=== PATIENT | female | born 1950 | race Caucasian/White ===

== ENCOUNTER 2022-09-06 17:04 | Outpatient (CLI) | payer SELFPAY | END 2022-09-06 17:05 | disposition EMS.NT | LOC: EMS 17:04 | DX: S01.21XA Laceration without foreign body of nose, initial encounter (principal); W07.XXXA Fall from chair, initial encounter; Y92.048 Other place in boarding-house as the place of occurrence of the external cause ==

== ENCOUNTER 2024-01-20 05:12 | Outpatient (CLI) | payer SELFPAY | END 2024-01-20 23:59 | disposition EMS.NT | LOC: EMS 05:12 | DX: Z03.89 Encounter for observation for other suspected diseases and conditions ruled out (principal) ==

== ENCOUNTER 2025-05-09 20:13 | Inpatient (IN) ==
--- NOTE | 2025-05-09 20:39 | ED Physician Documentation ---
History of Present Illness Stated complaint Stated Complaint: FOUND DOWN Chief complaint Chief Complaint: General History obtained from History obtained from: Patient Additonal information Additional information: 74yF with pmh DM p/w covid diagnosed on Tuesday with subsequent weakness, inability to care for self. EMS reported she was hypotensive in the field. patient also reports she had episode Tuesday of sliding from chair and landing on ground. called ems due to severe weakness and was incontinent of urine, unable to make it to restroom. also has been unable to keep down food, fluids or meds X 4 days Meds/Allgy Home Medications Ambulatory Orders Medication Instructions Recorded Confirmed Home Medications Unobtainable 05/04/25 05/04/25 Allergies Allergies Allergy/AdvReac Type Severity Reaction Status Date / Time Penicillins AdvReac Severe Hives Verified 05/09/25 20:16 Sulfa (Sulfonamide AdvReac Severe Hives Verified 05/09/25 20:16 Antibiotics) PFSH Active Problems All Active Problems (Updated 05/09/25 @ 22:13 by Lina Whitman MD) Rhabdomyolysis (Acute) Sinusitis (Chronic) COVID (Acute) Exposure to COVID-19 virus (Acute) Hyperlipemia (Chronic) Hypertension (Chronic) Diabetes (Chronic) Medical History Medical History (Updated 05/09/25 @ 22:13 by Lina Whitman MD) Arthritis Social History Social History Smoking Status: Never smoker Do you feel safe in your home environment?: Yes History of physical, verbal, emotional, or financial abuse?: No POLST Patient has POLST: No Exam Exam Vital Signs: Vital Signs x48h Temp Pulse Resp BP Pulse Ox 05/09/25 21:12 81 160/76 H 96 05/09/25 20:16 36.5 C 88 20 150/94 H 94 Constitutional elderly appearing, large body habitus, deconditioned HENMT normocephalic and oropharynx normal BL gross purulent discharge from nares Eyes PERRL and EOMs intact bilaterally Chest inspection of chest normal Respiratory breath sounds equal bilaterally, normal respiratory effort and clear to auscultation bilaterally Cardiovascular normal heart rate noted and regular rhythm noted Gastrointestinal abdomen normal to inspection, abdomen soft to palpation and nontender to palpation Back/Pelvis sacral decubitus ulcer Neurology GCS 15 Psychiatry oriented x3 Results Vitals Vitals: Vital Signs - 24 hr 05/09/25 20:16 05/09/25 21:12 05/09/25 21:40 Temperature 36.5 C Temperature Source Oral Pulse Rate 88 81 Respiratory Rate 20 Blood Pressure 150/94 H 160/76 H O2 Saturation 94 96 O2 Source Room air Pain Intensity 5 5 05/09/25 21:42 Temperature Temperature Source Pulse Rate Respiratory Rate Blood Pressure O2 Saturation O2 Source Pain Intensity 5 Oxygen O2 Source Room air Labs Labs: Laboratory Tests 05/09/25 05/09/25 21:05 21:09 WBC 12.6 H RBC 4.88 Hgb 14.1 Hct 43.1 MCV 88.3 MCH 28.9 MCHC 32.7 RDW 13.9 Plt Count 288 MPV 10.6 Neut # (Auto) 10.2 H Lymph # (Auto) 1.2 L [place] # (Auto) 1.1 H Eos # (Auto) 0.0 Baso # (Auto) 0.0 Absolute Nucleated RBC 0.00 Nucleated RBC % 0.0 VBG pH 7.372 VBG pCO2 43.1 VBG pO2 69.1 H VBG HCO3 25.3 VBG Total CO2 26.6 VBG O2 Saturation 89.0 H VBG Base Excess -0.2 Sodium 138 Potassium 3.5 Chloride 99 L Carbon Dioxide 26 Anion Gap 13.0 BUN 27 H Creatinine 0.6 Estimated GFR (MDRD) 97 Glucose 153 H Lactic Acid 2.3 H Calcium 9.4 Total Bilirubin 0.6 AST 120 H ALT 43 Alkaline Phosphatase 43 Total Creatine Kinase 2679 H* Total Protein 7.2 Albumin 3.9 Globulin 3.3 Albumin/Globulin Ratio 1.2 Serum Ketones SMALL H PD Medical Decision Making ED course ED course: 74yF presents with inability to care for self, incontinence, purulent discharge from nose, and recent covid dx. plan to undertake full workup and reevaluate. AOX4. cxr negative. She does have leukocytosis and lactic acidemia concerning for sepsis. Fluids and antibiotics provided given alma sinusitis. Plan to admit for sepsis in setting of severe deconditioning. Discharge Plan Discharge Patient Disposition: [facility] DC/Xfer Condition: Fair Clinical Impression: COVID, Sinusitis, Rhabdomyolysis Prescriptions: No Action Home Medications Unobtainable Print Language: [place]
--- OUTSIDE RECORDS SUMMARY | 2025-05-09 20:44 | EXTERNAL MEDICAL SUMMARY RPT | Continuity of Care Document ---
Author Organization [facility] Address [address] [facility] [address] [place] [address] Phone Problems date description facility 2025-05-06 05:37 [facility] 2 [facility]-06 05:37 Hyperlipidemia, unspecified [facility] 2025-05-06 05:37 Essential (primary) [facility]ensio n [facility] 2025-05-06 05:37 Contact with and (sus[facility]) [facility] Social History date description facility
[2025-05-09] MEDS: SODIUM CHLORIDE 0.9% 2,000 ML IV ONE (21:05)
[2025-05-09 21:17] LABS: HCT - HEMATOCRIT 43.1 % (37.0-47.0); HGB - HEMOGLOBIN 14.1 g/dL (12.0-16.0); MEAN PLATELET VOLUME 10.6 fL (7.9-10.8); NRBC ABSOLUTE COUNT (AUTO) 0.00 x10^3/uL; NUCLEATED RED BLOOD CELLS AUTO 0.0 /100WBC; PLT - PLATELET COUNT 288 10^3/uL (130-450); RED CELL DISTRIBUTION WIDTH 13.9 % (12.0-15.0)
--- NOTE | 2025-05-09 21:18 | XRAY Report ---
PROCEDURE: XR Chest 1V INDICATIONS: weak TECHNIQUE: One view of the chest was acquired. COMPARISON: None. FINDINGS: Surgical changes and devices: None. Lungs and pleura: No pleural effusions or pneumothorax. No consolidation. Mediastinum: Mediastinal contours appear normal. Heart size is normal. Bones and chest wall: No suspicious bony lesions. Overlying soft tissues appear unremarkable. IMPRESSION: No acute cardiopulmonary process. Reviewed by: Trey Sarah MD on 05/09/2025 9:15 PM PDT Approved by: Trey Sarah MD on 05/09/2025 9:15 PM PDT Station ID: [id number]
[2025-05-09 21:27] LABS: VBG BASE EXCESS -0.2 mmol/L (-2 - +2); VBG PCO2 43.1 mmHg (41-51); VBG PO2 69.1 mmHg (25-47); VBG TOTAL CO2 26.6 mmol/L (24-29)
[2025-05-09 21:35] LABS: ALT ALANINE AMINOTRANSFERASE 43 IU/L (10-60); AST ASPARTATE AMINOTRANSFERASE 120 IU/L (10-42); BUN - BLOOD UREA NITROGEN 27 mg/dL (6-20); CARBON DIOXIDE - CO2 26 mmol/L (21-32); CREATININE 0.6 mg/dL (0.6-1.3); GFR - MDRD 97 (>89)
[2025-05-09] MEDS: ACETAMINOPHEN 325 MG TABLET PO STA (21:40)
[2025-05-09] MEDS: IBUPROFEN 600 MG TABLET PO STA (21:42)
[2025-05-09 21:43] LABS: KETONES, SERUM (ACETEST) SMALL (NEGATIVE)
[2025-05-09 22:00] LABS: VBG PH 7.372 (7.31-7.41)
[2025-05-09] MEDS: cefTRIAXone 1 GM in SODIUM CHLORIDE 0.9% MINIBAG 100 ML IV STA (22:20)
[2025-05-09] MEDS ORDERED: cefTRIAXone 1 GM VIAL ONE (22:20)
[2025-05-09 22:28] LABS: CORONAVIRUS 229E-RESP PCR NOT DETECTED; CORONAVIRUS HKU1-RESP PCR NOT DETECTED; CORONAVIRUS NL63-RESP PCR NOT DETECTED; CORONAVIRUS OC43-RESP PCR NOT DETECTED
[2025-05-09 22:29] LABS: HUMAN METAPNEUMOVIRUS NOT DETECTED; INFLUENZA A- RESP PCR PANEL NOT DETECTED; RHINOVIRUS/ENTEROVIRUS NOT DETECTED; SARS-CoV-2 -RESP PCR PANEL DETECTED
[2025-05-09 22:30] LABS: B. PARAPERTUSSIS- RESP PCR PAN NOT DETECTED; B. PERTUSSIS- RESP PCR PANEL NOT DETECTED; C. PNEUMONIAE- RESP PCR PANEL NOT DETECTED; INFLUENZA B - RESP PCR PANEL NOT DETECTED; M. PNEUMONIAE- RESP PCR PANEL NOT DETECTED; PARAINFLUENZA VIRUS 1 NOT DETECTED; PARAINFLUENZA VIRUS 2 NOT DETECTED; PARAINFLUENZA VIRUS 4 NOT DETECTED; RSV- RESP PCR PANEL NOT DETECTED
--- NOTE | 2025-05-09 22:44 | HISTORY & PHYSICAL EXAMINATION ---
Chief Complaint Chief Complaint Chief Complaint: Weaknes, Fall History of Present Illness History Obtained From History obtained from: patient Exam Limitations: Telemedicine encounter History of Present Illness HPI Comment/Other: Patient is 74 y/o Diabetic F with prior hx of HTN and HLD not on insulin treatment, prior history of taking COVID-19 vaccines, lives alone and uses cane or walker to ambulate due to arthritis, presented today following fall and unable to walk due to diffuse generalized weakness, patient was diagnosed COVID - 19 five days, ago from home covid - 19 testing . EMS found patient on floor and patient admits svere weakness since last 3 days, as per my discussion with ER MD patient was found on floor with severe lethargy and bowel movement on floor, Patinet presented to hospital for further evaluation of symptoms. Describes diffuse weakness, runny nose, dry cough but no fever and not passing out. denies diarrhea, hedaceh. Meds/Allgy Home Medications Ambulatory Orders Medication Instructions Recorded Confirmed Home Medications Unobtainable 05/04/25 05/04/25 Allergies Allergies Allergy/AdvReac Type Severity Reaction Status Date / Time Penicillins AdvReac Severe Hives Verified 05/09/25 20:16 Sulfa (Sulfonamide AdvReac Severe Hives Verified 05/09/25 20:16 Antibiotics) PFSH Active Problems All Active Problems (Updated 05/09/25 @ 22:43 by ) Rhabdomyolysis (Acute) Sinusitis (Chronic) COVID (Acute) Exposure to COVID-19 virus (Acute) Hyperlipemia (Chronic) Hypertension (Chronic) Diabetes (Chronic) Medical History Medical History (Updated 05/09/25 @ 22:43 by ) Arthritis Social History Social History Smoking Status: Never smoker Do you feel safe in your home environment?: Yes History of physical, verbal, emotional, or financial abuse?: No POLST Patient has POLST: No Review of Systems Constitutional Reports: Fatigue, Malaise and Weakness; Denies: Chills, Diaphoresis, Night sweats or Poor appetite Ears, nose, mouth, and throat Reports: Ear pain, Nasal congestion and Post nasal drip; Denies: Hearing loss, Tinnitus, Nose bleeds or Vertigo Cardiovascular Denies: chest pain, palpitations, edema or shortness of breath with exertion Respiratory Reports: Cough and Sputum production; Denies: Shortness of breath, Change in phlegm color or Wheezing Neurological Reports: General weakness; Denies: Focal weakness, Weakness in extremities or Vertigo Endocrine Reports: Fatigue Allergic/Immunologic Denies: Wheezing Exam Exam Vital Signs: Vital Signs x48h Temp Pulse Resp BP Pulse Ox 05/09/25 21:12 81 160/76 H 96 05/09/25 21:11 81 16 160/76 H 96 05/09/25 20:16 36.5 C 88 20 150/94 H 94 Conclusion/Plan Problem List (1) Rhabdomyolysis: (2) Sinusitis: (3) COVID: (4) Hypertension: Qualifiers: Hypertension type: unspecified Qualified Code(s): I10 - Essential (primary) hypertension (5) Hyperlipemia: Qualifiers: Hyperlipidemia type: unspecified Qualified Code(s): E78.5 - Hyperlipidemia, unspecified (6) Diabetes: Qualifiers: Diabetes mellitus type: type 2 Diabetes mellitus residential insulin use: without medical terminologist use Diabetes mellitus complication status: without complication Qualified Code(s): E11.9 - Type 2 diabetes mellitus without complications Plan - Profound weakness following COVID 19, evident by patient's own symptoms of gradual decline - Symptoms of sinusitis and URI - Severe weakness - Start IV Rocephin, no role of Remdesivir as onset is 5 or more days - f/u blood culture - obtain PT OT eval - Continue IVF - Patient has rhabdomysis, obtain CPK in am, ok to continue diabetic diet - Continue supportive care - Continue Sliding scale - DVT prophyalxis Lab Results 05/09/25 21:05 05/09/25 21:05
[2025-05-09] MEDS: SODIUM CHLORIDE 0.9% 500 ML IV ONE (22:53)
[2025-05-10] MEDS ORDERED: oxyCODONE 5 MG TABLET PO PRN (00:31)
[2025-05-10] MEDS ORDERED: ZOLPIDEM 5 MG TABLET PO PRN (00:31)
[2025-05-10] MEDS ORDERED: ONDANSETRON ODT 4 MG TABLET TL PRN (00:31)
[2025-05-10] MEDS ORDERED: SODIUM CHLORIDE FLUSH 0.9% 10 ML SYRINGE IVP PRN (00:31)
[2025-05-10] MEDS ORDERED: ACETAMINOPHEN 325 MG TABLET PO PRN (00:31)
[2025-05-10] MEDS: LACTATED RINGERS 1,000 ML IV SCH (01:43)
[2025-05-10] MEDS: SODIUM CHLORIDE FLUSH 0.9% 10 ML SYRINGE IVP SCH (01:43)
[2025-05-10 05:56] LABS: HCT - HEMATOCRIT 33.5 % (37.0-47.0); HGB - HEMOGLOBIN 11.1 g/dL (12.0-16.0); MEAN PLATELET VOLUME 10.8 fL (7.9-10.8); NRBC ABSOLUTE COUNT (AUTO) 0.00 x10^3/uL; NUCLEATED RED BLOOD CELLS AUTO 0.0 /100WBC; PLT - PLATELET COUNT 225 10^3/uL (130-450); RED CELL DISTRIBUTION WIDTH 14.0 % (12.0-15.0)
[2025-05-10 06:10] LABS: GLUCOSE, URINE (UA) NEGATIVE (NEGATIVE); KETONES,URINE (UA) >=80 mg/dL (NEGATIVE); OCCULT BLOOD,URINE TRACE-LYSED (NEGATIVE); SQUAMOUS EPITHELIAL CELL,UR MOD Squamous (<= Few)
[2025-05-10 06:15] LABS: BUN - BLOOD UREA NITROGEN 26.0 mg/dL (6-20); CARBON DIOXIDE - CO2 25.0 mmol/L (21-32); CREATININE 0.6 mg/dL (0.6-1.3); CRP - C-REACTIVE PROTEIN 7.4 mg/dL (<0.5); GFR - MDRD 97.0 (>89)
[2025-05-10 06:20] LABS: CK- CREATINE KINASE 1850.0 IU/L (30-223)
[2025-05-10] MEDS: POTASSIUM CHLORIDE 20 MEQ TABLET PO ONE (08:45)
[2025-05-10] MEDS: INSULIN LISPRO 300 UNIT/3 ML PEN SUBQ SCH (08:46)
[2025-05-10] MEDS: HEPARIN 5,000 UNIT/ML VIAL SUBQ SCH (08:47)
--- NOTE | 2025-05-10 09:50 | PHARMACY PROGRESS NOTE ---
Best Possible Medication History Admit Date and Time: 05/09/25 2226 Home Medications Medication Instructions Recorded Confirmed Type lisinopril 40 mg tablet 40 mg PO DAILY 05/09/2505/01 History metformin 1,000 mg tablet 1,000 mg PO BID 05/09/2505/25 History simvastatin 40 mg tablet 40 mg PO QPM 05/09/25 History sitagliptin phosphate 25 mg tablet 25 mg PO DAILY 04/2505/10/25 History (Fariha) Processed by: Pharmacy Medications reviewed in ED?: No Medication History completed: Yes Patient Interview: Pt unable to participate Secondary Source(s): Pharmacy records and Insurance records [facility] Statement: As the person ultimately responsible for medication therapy, providers are able to order a medication from an existing home medication list in [facility] via the "Reconcile Routine" prior to Confirmation of that medication by business support. Such practice is discouraged except when the physician, in their clinical judgment, deems that a medical need exists for a medication without regard to previous use.
--- NOTE | 2025-05-10 10:18 | PROVIDER PROGRESS NOTE ---
Subjective Prog Note Date Prog Note Date: 05/10/25 Prog Note Time: 09:55 Subjective Pt reports feeling: Improved Subjective: Mercedes Rodriguez (Marni) is a pleasant 74-year-old female with PMH of T2DM, arthritis, HTN, and HL who presents with severe weakness, rhinorrhea, and cough secondary to cough resulting in fall found to be in rhabdomyolysis. Harriet begins her story on 05/03, when she visited her manager retail sales for a regular diabetes wellness evaluation, and was notified 05/04 that her provider had Covid for which she had been exposed. She presented to the walk-in clinic that day and requested a Covid test which returned negative, she was asymptomatic at the time. On 05/05 however she developed myalgias, productive cough, sore throat, and rhinorrhea progressing to profound generalized weakness which resulted in her sliding out from her chair onto the floor 05/06. Due to her weakness she was unable to get up from the floor, and remained there until the evening of 05/09 when she states someone in her apartment complex finally heard her calls for help and activated EMS. She did not hit her head, did not lose consciousness, although she slept intermittently. She was unable to have any PO intake during those 3 days on the floor, and had multiple episodes of incontinent bladder/bowel since she could not get to the bathroom. She is unsure if she had fevers but did not feel feverish or have chills. At baseline, she lives alone with her dog. She is fairly independent with ADLs but does have a helper that comes for a few hours a few days a week to assist with minor supervisor rough end. She uses a FWW to ambulate longer distances outside of her apartment, drives to the grocery store herself. Today, Harriet states she is constitutionally feeling much better, however continues to endorse serous nasal drainage and productive cough with thick, yellow sputum. She states she has baseline arthritis pains in her bilateral shoulders, lower back, and bilateral knees for which she normally takes 2 tablets Ibuprofen daily-- this was exacerbated over the past few days as she was unable to take her medications; she received some last night in the ED which significantly relieved her pain. She denies nausea, vomiting, fever, chills, abdominal pain. She denies urinary or GI symptoms. She denies dyspnea, chest pain, palpitations. Current Medications Current Medications Current Medications: Current Medications Generic Name Dose Route Start Last Admin Trade Name Freq PRN Reason Stop Dose Admin Acetaminophen 650 mg 05/10/25 00:31 Acetaminophen 325 Mg Tablet PO Q4HR PRN Pain 1 to 4, or Fever Hydrocodone Bitart/Acetaminophen 1 tab 05/10/25 00:31 Hydrocod/Acetam 5/325 Mg Tablet PO Q4HR PRN Pain 5 to 7 Heparin Sodium (Porcine) 5,000 unit 05/10/25 09:00 05/10/25 08:47 Heparin 5,000 Unit/Ml Vial SUBQ 5,000 unit BID BABEY Administration Lactated Ringer's 1,000 mls @ 150 mls/hr 05/10/25 00:31 05/10/25 08:44 Lr IV 150 mls/hr .Q6H40M ABBEY Administration Insulin Human Lispro 1 - 9 unit 05/10/25 08:00 05/10/25 08:46 Insulin Lispro 300 Unit/3 Ml Pen SUBQ 1 unit 0800,1200,1700,2100 ABBEY Administration Protocol Ondansetron HCl 4 mg 05/10/25 00:31 Ondansetron Odt 4 Mg Tablet TL Q6HR PRN Nausea / Vomiting Oxycodone HCl 10 mg 05/10/25 00:31 Oxycodone 5 Mg Tablet PO Q4HR PRN Pain 8 to 10 Sodium Chloride 10 ml 05/10/25 00:31 Sodium Chloride Flush 0.9% 10 Ml Syringe IVP PRN PRN NEEDED PER PROVIDER ORDERS Sodium Chloride 10 ml 05/10/25 01:00 05/10/25 08:49 Sodium Chloride Flush 0.9% 10 Ml Syringe IVP Not Given 0100,0900,1700 [facility] Zolpidem Tartrate 5 mg 05/10/25 00:31 Zolpidem 5 Mg Tablet PO QPM PRN Insomnia Objective Vital Signs/Intake & Output Reviewed Vital Signs: Yes Vital Signs: Vital Signs x48h Temp Pulse Resp BP Pulse Ox O2 Flow Rate 05/10/25 08:11 36.7 C 68 18 158/55 H 96 05/10/25 05:19 36.7 C 20 123/45 L 93 Intake & Output: Intake & Output 05/07/25 05/08/25 05/09/25 05/10/25 23:59 23:59 23:59 23:59 Intake Total 3600 / 3600 Balance 3600 / 3600 Weight (kg) 113.7 kg 113.7 kg Objective General Appearance: positive No acute distress and Alert Eyes Bilateral: positive Normal inspection, PERRL and Conjunctivae nml ENT: positive Other (Serous nasal drainage, yellow mucus from productive cough) Neck: positive Nml inspection, No JVD and Trachea midline Respiratory: positive No respiratory distress; negative Breath sounds nml (Upper airway congestion, diminished lung sounds in the bases) Cardiovascular: positive Regular rate & rhythm and Systolic murmur (Best heard at the pulmonic and mitral points) Peripheral Pulses: 1+: Posterior tibialis (R) and 1+: Posterior tibialis (L) and 2+: Radial (R), 2+: Radial (L), 2+: Dorsalis pedis (R) and 2+: Dorsalis pedis (L) Abdomen: positive Non-tender, Nml bowel sounds and No distention Back: positive Nml inspection Skin: positive Warm, Dry and Other (S2 sacral pressure ulcer, present on admission); negative Color nml (Facial flushing to inner cheeks, <1cm dry scabs to right mari) Extremities: positive Full ROM and Nml appearance; negative No pedal edema (1+ ankle edema) Neurologic/Psychiatric: positive Oriented x3, Sensation nml, Mood/affect nml and Weakness (BUE motor intact, BLE motor strength 4/5); negative Motor nml (BUE motor intact, BLE motor strength 4/5) Lab Results 05/10/25 05:26 05/10/25 05:26 Other Labs: Lab Results x24hrs 05/10/25 05/10/25 05/10/25 Range/Units 07:53 05:26 05:20 WBC 7.5 (4.8-10.8) x10^3/uL RBC 3.83 L (4.20-5.40) 10^6/uL Hgb 11.1 L (12.0-16.0) g/dL Hct 33.5 L (37.0-47.0) % MCV 87.5 (81.0-99.0) fL MCH 29.0 (27.0-31.0) pg MCHC 33.1 (32.0-36.0) g/dL RDW 14.0 (12.0-15.0) % Plt Count 225 (130-450) 10^3/uL MPV 10.8 (7.9-10.8) fL Neut # (Auto) 5.2 (1.5-6.6) 10^3/uL Lymph # (Auto) 1.5 (1.5-3.5) 10^3/uL Deuel # (Auto) 0.7 (0.0-1.0) 10^3/uL Eos # (Auto) 0.1 (0.0-0.7) 10^3/uL Baso # (Auto) 0.0 (0.0-0.1) 10^3/uL Absolute Nucleated RBC 0.00 x10^3/uL Nucleated RBC % 0.0 /100WBC VBG pH (7.31-7.41) VBG pCO2 (41-51) mmHg VBG pO2 (25-47) mmHg VBG HCO3 (23-28) mmol/L VBG Total CO2 (24-29) mmol/L VBG O2 Saturation (60-80) % VBG Base Excess (-2 - +2) mmol/L Sodium 138 (135-145) mmol/L Potassium 3.1 L (3.5-4.5) mmol/L Chloride 105 (101-111) mmol/L Carbon Dioxide 25 (21-32) mmol/L Anion Gap 8.0 (6-13) BUN 26 H (6-20) mg/dL Creatinine 0.6 (0.6-1.3) mg/dL Estimated GFR (MDRD) 97 (>89) Glucose 168 H (74-104) mg/dL POC Whole Bld Glucose 148 (70-100) mg/dL Lactic Acid (0.5-2.2) mmol/L Calcium 8.3 L (8.5-10.3) mg/dL Total Bilirubin (0.2-1.0) mg/dL AST (10-42) IU/L ALT (10-60) IU/L Alkaline Phosphatase (42-121) IU/L Total Creatine Kinase 1850 H* (30-223) IU/L C-Reactive Protein 7.4 H (<0.5) mg/dL Total Protein (6.4-8.9) g/dL Albumin (3.2-5.5) g/dL Globulin (2.1-4.2) g/dL Albumin/Globulin Ratio (1.0-2.2) Procalcitonin Immunoas 0.15 (<0.5) ng/mL Urine Color YELLOW Urine Clarity HAZY (CLEAR) Urine pH 6.0 (5.0-7.5) PH Ur Specific Briscoe 1.020 (1.002-1.030) Urine Protein 30 H (NEGATIVE) mg/dL Urine Glucose (UA) NEGATIVE (NEGATIVE) mg/dL Urine Ketones >=80 H (NEGATIVE) mg/dL Urine Occult Blood TRACE-LYSED (NEGATIVE) Urine Nitrite POSITIVE H (NEGATIVE) Urine Bilirubin NEGATIVE (NEGATIVE) Urine Urobilinogen 0.2 (NORMAL) (NORMAL) E.U./dL Ur Leukocyte Esterase TRACE H (NEGATIVE) Urine RBC 0-5 (0-5) /HPF Urine WBC 0-3 (0-5) /HPF Ur Squamous Epith Cells MOD Squamous H (<= Few) Urine Bacteria Moderate H (None Seen) /HPF Urine Culture Comments NOT INDICATED Nasal Adenovirus (PCR) Nasal B. parapertussis DNA (PCR) Nasal Coronavir 229E PCR Nasal Coronavir HKU1 PCR Nasal Coronavir NL63 PCR Nasal Coronavir OC43 PCR Nasal Enterovir/Rhinovir PCR Nasal Influenza B PCR Nasal Influenza A PCR Nasal Parainfluen 1 PCR Nasal Parainfluen 2 PCR Nasal Parainfluen 3 PCR Nasal Parainfluen 4 PCR Nasal RSV (PCR) Nasal B.pertussis DNA PCR Nasal C.pneumoniae (PCR) Johan Human Metapneumo PCR Nasal M.pneumoniae (PCR) Nasal SARS-CoV-2 (PCR) Serum Ketones (NEGATIVE) 05/10/25 05/09/25 05/09/25 Range/Units 00:57 21:11 21:09 WBC (4.8-10.8) x10^3/uL RBC (4.20-5.40) 10^6/uL Hgb (12.0-16.0) g/dL Hct (37.0-47.0) % MCV (81.0-99.0) fL MCH (27.0-31.0) pg MCHC (32.0-36.0) g/dL RDW (12.0-15.0) % Plt Count (130-450) 10^3/uL MPV (7.9-10.8) fL Neut # (Auto) (1.5-6.6) 10^3/uL Lymph # (Auto) (1.5-3.5) 10^3/uL Deuel # (Auto) (0.0-1.0) 10^3/uL Eos # (Auto) (0.0-0.7) 10^3/uL Baso # (Auto) (0.0-0.1) 10^3/uL Absolute Nucleated RBC x10^3/uL Nucleated RBC % /100WBC VBG pH 7.372 (7.31-7.41) VBG pCO2 43.1 (41-51) mmHg VBG pO2 69.1 H (25-47) mmHg VBG HCO3 25.3 (23-28) mmol/L VBG Total CO2 26.6 (24-29) mmol/L VBG O2 Saturation 89.0 H (60-80) % VBG Base Excess -0.2 (-2 - +2) mmol/L Sodium (135-145) mmol/L Potassium (3.5-4.5) mmol/L Chloride (101-111) mmol/L Carbon Dioxide (21-32) mmol/L Anion Gap (6-13) BUN (6-20) mg/dL Creatinine (0.6-1.3) mg/dL Estimated GFR (MDRD) (>89) Glucose (74-104) mg/dL POC Whole Bld Glucose (70-100) mg/dL Lactic Acid 1.4 2.3 H (0.5-2.2) mmol/L Calcium (8.5-10.3) mg/dL Total Bilirubin (0.2-1.0) mg/dL AST (10-42) IU/L ALT (10-60) IU/L Alkaline Phosphatase (42-121) IU/L Total Creatine Kinase (30-223) IU/L C-Reactive Protein (<0.5) mg/dL Total Protein (6.4-8.9) g/dL Albumin (3.2-5.5) g/dL Globulin (2.1-4.2) g/dL Albumin/Globulin Ratio (1.0-2.2) Procalcitonin Immunoas (<0.5) ng/mL Urine Color Urine Clarity (CLEAR) Urine pH (5.0-7.5) PH Ur Specific Briscoe (1.002-1.030) Urine Protein (NEGATIVE) mg/dL Urine Glucose (UA) (NEGATIVE) mg/dL Urine Ketones (NEGATIVE) mg/dL Urine Occult Blood (NEGATIVE) Urine Nitrite (NEGATIVE) Urine Bilirubin (NEGATIVE) Urine Urobilinogen (NORMAL) E.U./dL Ur Leukocyte Esterase (NEGATIVE) Urine RBC (0-5) /HPF Urine WBC (0-5) /HPF Ur Squamous Epith Cells (<= Few) Urine Bacteria (None Seen) /HPF Urine Culture Comments Nasal Adenovirus (PCR) NOT DETECTED Nasal B. parapertussis DNA (PCR) NOT DETECTED Nasal Coronavir 229E PCR NOT DETECTED Nasal Coronavir HKU1 PCR NOT DETECTED Nasal Coronavir NL63 PCR NOT DETECTED Nasal Coronavir OC43 PCR NOT DETECTED Nasal Enterovir/Rhinovir PCR NOT DETECTED Nasal Influenza B PCR NOT DETECTED Nasal Influenza A PCR NOT DETECTED Nasal Parainfluen 1 PCR NOT DETECTED Nasal Parainfluen 2 PCR NOT DETECTED Nasal Parainfluen 3 PCR NOT DETECTED Nasal Parainfluen 4 PCR NOT DETECTED Nasal RSV (PCR) NOT DETECTED Nasal B.pertussis DNA PCR NOT DETECTED Nasal C.pneumoniae (PCR) NOT DETECTED Johan Human Metapneumo PCR NOT DETECTED Nasal M.pneumoniae (PCR) NOT DETECTED Nasal SARS-CoV-2 (PCR) DETECTED A Serum Ketones (NEGATIVE) 05/09/25 Range/Units 21:05 WBC 12.6 H (4.8-10.8) x10^3/uL RBC 4.88 (4.20-5.40) 10^6/uL Hgb 14.1 (12.0-16.0) g/dL Hct 43.1 (37.0-47.0) % MCV 88.3 (81.0-99.0) fL MCH 28.9 (27.0-31.0) pg MCHC 32.7 (32.0-36.0) g/dL RDW 13.9 (12.0-15.0) % Plt Count 288 (130-450) 10^3/uL MPV 10.6 (7.9-10.8) fL Neut # (Auto) 10.2 H (1.5-6.6) 10^3/uL Lymph # (Auto) 1.2 L (1.5-3.5) 10^3/uL Deuel # (Auto) 1.1 H (0.0-1.0) 10^3/uL Eos # (Auto) 0.0 (0.0-0.7) 10^3/uL Baso # (Auto) 0.0 (0.0-0.1) 10^3/uL Absolute Nucleated RBC 0.00 x10^3/uL Nucleated RBC % 0.0 /100WBC VBG pH (7.31-7.41) VBG pCO2 (41-51) mmHg VBG pO2 (25-47) mmHg VBG HCO3 (23-28) mmol/L VBG Total CO2 (24-29) mmol/L VBG O2 Saturation (60-80) % VBG Base Excess (-2 - +2) mmol/L Sodium 138 (135-145) mmol/L Potassium 3.5 (3.5-4.5) mmol/L Chloride 99 L (101-111) mmol/L Carbon Dioxide 26 (21-32) mmol/L Anion Gap 13.0 (6-13) BUN 27 H (6-20) mg/dL Creatinine 0.6 (0.6-1.3) mg/dL Estimated GFR (MDRD) 97 (>89) Glucose 153 H (74-104) mg/dL POC Whole Bld Glucose (70-100) mg/dL Lactic Acid (0.5-2.2) mmol/L Calcium 9.4 (8.5-10.3) mg/dL Total Bilirubin 0.6 (0.2-1.0) mg/dL AST 120 H (10-42) IU/L ALT 43 (10-60) IU/L Alkaline Phosphatase 43 (42-121) IU/L Total Creatine Kinase 2679 H* (30-223) IU/L C-Reactive Protein (<0.5) mg/dL Total Protein 7.2 (6.4-8.9) g/dL Albumin 3.9 (3.2-5.5) g/dL Globulin 3.3 (2.1-4.2) g/dL Albumin/Globulin Ratio 1.2 (1.0-2.2) Procalcitonin Immunoas (<0.5) ng/mL Urine Color Urine Clarity (CLEAR) Urine pH (5.0-7.5) PH Ur Specific Briscoe (1.002-1.030) Urine Protein (NEGATIVE) mg/dL Urine Glucose (UA) (NEGATIVE) mg/dL Urine Ketones (NEGATIVE) mg/dL Urine Occult Blood (NEGATIVE) Urine Nitrite (NEGATIVE) Urine Bilirubin (NEGATIVE) Urine Urobilinogen (NORMAL) E.U./dL Ur Leukocyte Esterase (NEGATIVE) Urine RBC (0-5) /HPF Urine WBC (0-5) /HPF Ur Squamous Epith Cells (<= Few) Urine Bacteria (None Seen) /HPF Urine Culture Comments Nasal Adenovirus (PCR) Nasal B. parapertussis DNA (PCR) Nasal Coronavir 229E PCR Nasal Coronavir HKU1 PCR Nasal Coronavir NL63 PCR Nasal Coronavir OC43 PCR Nasal Enterovir/Rhinovir PCR Nasal Influenza B PCR Nasal Influenza A PCR Nasal Parainfluen 1 PCR Nasal Parainfluen 2 PCR Nasal Parainfluen 3 PCR Nasal Parainfluen 4 PCR Nasal RSV (PCR) Nasal B.pertussis DNA PCR Nasal C.pneumoniae (PCR) Johan Human Metapneumo PCR Nasal M.pneumoniae (PCR) Nasal SARS-CoV-2 (PCR) Serum Ketones SMALL H (NEGATIVE) Diagnostic Imaging Diagnostic Imaging Results: positive Final report reviewed Assessment/Plan Problem List (1) Rhabdomyolysis: Qualifiers: Rhabdomyolysis type: non-traumatic Qualified Code(s): M62.82 - Rhabdomyolysis (2) Lactate blood increase: (3) Leukocytosis: Impression: Patient was down on the ground for over 3 days after sliding out of chair without PO intake. CK on admission 2679, now downtrending after IV fluids to 1850 10/10. WBC down to 7.5 from 12.6 Lactate down to 1.4 from 2.3. CRP is elevated 7.4. CXR negative, UA positive for bacteria and leukocytes but was contaminated. I suspect her leukocytosis, elevated lactate/CRP is secondary to rhabdo and will resolve as her CK decreases. She is not having any other signs/symptoms of systemic aside from her Covid symptoms. - Continue IVF this evening as CK downtrends; her PO intake has improved - Repeat CK level - Follow-up blood cultures - Discontinue Ceftriaxone IV given lack of s/s of systemic infection; not indicated for Covid Qualifiers: Leukocytosis type: bandemia Qualified Code(s): D72.825 - Bandemia (4) Sinusitis: Qualifiers: Chronicity: subacute Sinusitis location: ethmoidal Qualified Code(s): J01.20 - Acute ethmoidal sinusitis, unspecified (5) COVID: Impression: Continues to endorse rhinorrhea and productive cough, which has improved since symptom onset on 05/05. She states she does have some polyps in the back of her nasal passage and resulting chronic sinus congestion, however this has been exacerbated with her Covid infection. Her SpO2 93% on room air, denies dyspnea/orthopnea and wheezing. - Out of 5-day window for Remdesivir - Supportive management with antitussives if needed, added Flonase for nasal congestion (6) Fall: Impression: Patient with limited support at baseline, only a helper a few hours a few times a week. No spouse or children, lives alone and independent with ADLs. She states she normally slides out of her chair a few times a year and will contact EMS to help her back up. Given her history and as she was on the ground for a few days without assistance I am concerned about deconditioning. - PT/OT evaluations Qualifiers: Encounter type: initial encounter Qualified Code(s): W19.XXXA - Unspecified fall, initial encounter (7) Hypertension: Impression: BP here is stable, no need for acute intervention at this time. - Continue home lisinopril 40mg PO daily as no evidence of kidney dysfunction Qualifiers: Hypertension type: unspecified Qualified Code(s): I10 - Essential (primary) hypertension (8) Hyperlipemia: Impression: Noted in history, she takes simvastatin for this at home. - Continue home simvastatin 40mg nightly Qualifiers: Hyperlipidemia type: unspecified Qualified Code(s): E78.5 - Hyperlipidemia, unspecified (9) Diabetes: Impression: HgbA1c is 6.3 this admission. She is well-controlled on her home diabetes regimen of metformin and sitagliptin, which she states she has been taking for over 15 years. BG is mildly elevated here 160-190s. - Hold metformin and sitagliptin - BG ACHS with low-dose correctional insulin while in house Qualifiers: Diabetes mellitus complication status: without complication Diabetes mellitus jail insulin use: without terminal operations supervisor use Diabetes mellitus type: t ype 2 Qualified Code(s): E11.9 - Type 2 diabetes mellitus without complications (10) Pressure ulcer: Impression: Stage 2 sacral pressure ulcer, present on admission. Patient denies pain. - Keep wound clean, promote offloading - Patient was counselled to reposition herself frequently to prevent worsening of wound Qualifiers: Pressure injury location: sacral region Pressure injury stage: stage 2 Qualified Code(s): L89.152 - Pressure ulcer of sacral region, stage 2
[2025-05-10 10:29] LABS: ESTIMATED AVERAGE GLUCOSE 134 mg/dL (70-100); HEMOGLOBIN A1c% 6.3 % (4.27-6.07)
[2025-05-10] MEDS: IBUPROFEN 600 MG TABLET PO SCH (20:48)
[2025-05-10] MEDS: ATORVASTATIN 10 MG TABLET PO SCH (20:49)
[2025-05-10] MEDS ORDERED: cefTRIAXone 1 GM in SODIUM CHLORIDE 0.9% MINIBAG 100 ML IV SCH (21:00)
[2025-05-10] MEDS: NYSTATIN CREAM 15 GM TUBE TOP SCH (21:03)
[2025-05-10 22:06] LABS: GLUCOSE, URINE (UA) NEGATIVE (NEGATIVE); KETONES,URINE (UA) NEGATIVE (NEGATIVE); OCCULT BLOOD,URINE MODERATE (NEGATIVE)
[2025-05-10 22:12] LABS: SQUAMOUS EPITHELIAL CELL,UR FEW Squamous (<= Few)
[2025-05-11 05:42] LABS: HCT - HEMATOCRIT 30.7 % (37.0-47.0); HGB - HEMOGLOBIN 9.8 g/dL (12.0-16.0); MEAN PLATELET VOLUME 10.3 fL (7.9-10.8); PLT - PLATELET COUNT 175.0 10^3/uL (130-450); RED CELL DISTRIBUTION WIDTH 14.2 % (12.0-15.0)
[2025-05-11 05:56] LABS: BUN - BLOOD UREA NITROGEN 20.0 mg/dL (6-20); CARBON DIOXIDE - CO2 25.0 mmol/L (21-32); CK- CREATINE KINASE 970.0 IU/L (30-223); CREATININE 0.6 mg/dL (0.6-1.3); GFR - MDRD 97.0 (>89)
[2025-05-11] MEDS: FLUTICASONE NASAL SPRAY NAS SCH (09:03)
[2025-05-11] MEDS: POTASSIUM CHLORIDE 20 MEQ TABLET PO ONE (09:03)
--- NOTE | 2025-05-11 09:29 | PROVIDER PROGRESS NOTE ---
Subjective Prog Note Date Prog Note Date: 05/11/25 Prog Note Time: 09:30 Subjective Pt reports feeling: Improved Subjective: Mercedes Rodriguez (Marni) is a pleasant 74-year-old female with PMH of T2DM, arthritis, HTN, and HL who presents with severe weakness, rhinorrhea, and cough secondary to Covid resulting in fall found to be in rhabdomyolysis, now improving after IVF. Today, Mercedes states her Covid symptoms are improving; she describes less rhinorrhea, coughing less frequently. She states she feels exhausted from the whole experience of being down on the ground for days before being found, and being woken during the night while inpatient for vital signs. She denies dyspnea, chest pain, palpitations. She reports her last bowel movement was yesterday. She is overall not at her baseline physical function as she continues to have difficulty turning in bed without assistance. Current Medications Current Medications Current Medications: Current Medications Generic Name Dose Route Start Last Admin Trade Name Freq PRN Reason Stop Dose Admin Acetaminophen 650 mg 05/10/25 00:31 Acetaminophen 325 Mg Tablet PO Q4HR PRN Pain 1 to 4, or Fever Hydrocodone Bitart/Acetaminophen 1 tab 05/10/25 00:31 Hydrocod/Acetam 5/325 Mg Tablet PO Q4HR PRN Pain 5 to 7 Atorvastatin Calcium 20 mg 05/10/25 21:00 05/10/25 20:49 Atorvastatin 10 Mg Tablet PO 20 mg QPM ABBEY Administration Fluticasone Propionate 1 sprays 05/11/25 09:00 05/11/25 09:03 Fluticasone Nasal [place] JENNIFER 1 spray DAILY ABBEY Administration Heparin Sodium (Porcine) 5,000 unit 05/10/25 09:00 05/11/25 09:04 Heparin 5,000 Unit/Ml Vial SUBQ 5,000 unit BID ABBEY Administration Ibuprofen 600 mg 05/10/25 21:00 05/11/25 09:03 Ibuprofen 600 Mg Tablet PO 600 mg BID ABBEY Administration Insulin Human Lispro 1 - 9 unit 05/10/25 08:00 05/11/25 09:04 Insulin Lispro 300 Unit/3 Ml Pen SUBQ Not Given 0800,1200,1700,2100 [facility] Protocol Lisinopril 40 mg 05/11/25 09:00 05/11/25 09:04 Lisinopril 20 Mg Tablet PO 40 mg DAILY ABBEY Administration Nystatin 1 applic 05/10/25 21:00 05/11/25 09:04 Nystatin Cream 15 Gm Tube TOP 1 applic BID ABBEY Administration Ondansetron HCl 4 mg 05/10/25 00:31 Ondansetron Odt 4 Mg Tablet TL Q6HR PRN Nausea / Vomiting Oxycodone HCl 10 mg 05/10/25 00:31 Oxycodone 5 Mg Tablet PO Q4HR PRN Pain 8 to 10 Sodium Chloride 10 ml 05/10/25 00:31 Sodium Chloride Flush 0.9% 10 Ml Syringe IVP PRN PRN NEEDED PER PROVIDER ORDERS Sodium Chloride 10 ml 05/10/25 01:00 05/11/25 09:04 Sodium Chloride Flush 0.9% 10 Ml Syringe IVP 10 ml 0100,0900,1700 ABBEY Administration Zolpidem Tartrate 5 mg 05/10/25 00:31 Zolpidem 5 Mg Tablet PO QPM PRN Insomnia Objective Vital Signs/Intake & Output Reviewed Vital Signs: Yes Vital Signs: Vital Signs x48h Temp Pulse Resp BP Pulse Ox 05/11/25 08:21 36.7 C 56 L 24 151/54 H 94 05/11/25 05:38 36.9 C Intake & Output: Intake & Output 05/08/25 05/09/25 05/10/25 05/11/25 23:59 23:59 23:59 23:59 Intake Total 6370 / 6370 449 / 449 Output Total 4000 / 4000 300 / 300 Balance 2370 / 2370 149 / 149 Weight (kg) 113.7 kg 113.7 kg Objective General Appearance: positive No acute distress and Alert Eyes Bilateral: negative Normal inspection (Scant yellow discharge along inferior palpebras, without erythema or inflammation) ENT: negative ENT inspection nml (Small amounts of nasal serous drainage, noted in tissues at bedside ) Respiratory: positive No respiratory distress and Breath sounds nml; negative Wheezes, Rales or Rhonchi Cardiovascular: positive Systolic murmur Peripheral Pulses: 2+: Radial (R) and 2+: Radial (L) Abdomen: positive Nml bowel sounds and No distention Skin: positive Warm, Dry and Other (S2 sacral PU, superficial biofilm with scant serosanguineous drainage) Extremities: positive No pedal edema and Pedal edema; negative Non-tender (Bilateral shoulder, leg tenderness to palpation from chronic arthritis) or Full ROM (Limited BUE/BLE active ROM 2/2 arthritis) Neurologic/Psychiatric: positive Oriented x3 and Mood/affect nml Lab Results 05/11/25 05:19 05/11/25 05:19 Other Labs: Lab Results x24hrs 05/11/25 05/11/25 05/10/25 Range/Units 07:49 05:19 21:25 WBC 7.1 (4.8-10.8) x10^3/uL RBC 3.44 L (4.20-5.40) 10^6/uL Hgb 9.8 L (12.0-16.0) g/dL Hct 30.7 L (37.0-47.0) % MCV 89.2 (81.0-99.0) fL MCH 28.5 (27.0-31.0) pg MCHC 31.9 L (32.0-36.0) g/dL RDW 14.2 (12.0-15.0) % Plt Count 175 (130-450) 10^3/uL MPV 10.3 (7.9-10.8) fL Sodium 138 (135-145) mmol/L Potassium 3.2 L (3.5-4.5) mmol/L Chloride 106 (101-111) mmol/L Carbon Dioxide 25 (21-32) mmol/L Anion Gap 7.0 (6-13) BUN 20 (6-20) mg/dL Creatinine 0.6 (0.6-1.3) mg/dL Estimated GFR (MDRD) 97 (>89) Glucose 130 H (74-104) mg/dL POC Whole Bld Glucose 134 (70-100) mg/dL Estimat Average Glucose (70-100) mg/dL Hemoglobin A1c % (4.27-6.07) % Calcium 8.4 L (8.5-10.3) mg/dL Magnesium 1.8 (1.7-2.3) mg/dL Total Creatine Kinase 970 H (30-223) IU/L Urine Color YELLOW Urine Clarity CLOUDY (CLEAR) Urine pH 6.0 (5.0-7.5) PH Ur Specific [place] 1.020 (1.002-1.030) Urine Protein TRACE (NEGATIVE) mg/dL Urine Glucose (UA) NEGATIVE (NEGATIVE) mg/dL Urine Ketones NEGATIVE (NEGATIVE) mg/dL Urine Occult Blood MODERATE (NEGATIVE) Urine Nitrite POSITIVE H (NEGATIVE) Urine Bilirubin NEGATIVE (NEGATIVE) Urine Urobilinogen 0.2 (NORMAL) (NORMAL) E.U./dL Ur Leukocyte Esterase MODERATE H (NEGATIVE) Urine RBC 6-10 H (0-5) /HPF Urine WBC >25 H (0-5) /HPF Ur Squamous Epith Cells FEW Squamous (<= Few) Urine Bacteria Many H (None Seen) /HPF Ur Microscopic Review INDICATED Urine Culture Comments INDICATED 05/10/25 05/10/25 05/10/25 Range/Units 20:36 16:55 11:12 WBC (4.8-10.8) x10^3/uL RBC (4.20-5.40) 10^6/uL Hgb (12.0-16.0) g/dL Hct (37.0-47.0) % MCV (81.0-99.0) fL MCH (27.0-31.0) pg MCHC (32.0-36.0) g/dL RDW (12.0-15.0) % Plt Count (130-450) 10^3/uL MPV (7.9-10.8) fL Sodium (135-145) mmol/L Potassium (3.5-4.5) mmol/L Chloride (101-111) mmol/L Carbon Dioxide (21-32) mmol/L Anion Gap (6-13) BUN (6-20) mg/dL Creatinine (0.6-1.3) mg/dL Estimated GFR (MDRD) (>89) Glucose (74-104) mg/dL POC Whole Bld Glucose 179 190 198 (70-100) mg/dL Estimat Average Glucose (70-100) mg/dL Hemoglobin A1c % (4.27-6.07) % Calcium (8.5-10.3) mg/dL Magnesium (1.7-2.3) mg/dL Total Creatine Kinase (30-223) IU/L Urine Color Urine Clarity (CLEAR) Urine pH (5.0-7.5) PH Ur Specific [place] (1.002-1.030) Urine Protein (NEGATIVE) mg/dL Urine Glucose (UA) (NEGATIVE) mg/dL Urine Ketones (NEGATIVE) mg/dL Urine Occult Blood (NEGATIVE) Urine Nitrite (NEGATIVE) Urine Bilirubin (NEGATIVE) Urine Urobilinogen (NORMAL) E.U./dL Ur Leukocyte Esterase (NEGATIVE) Urine RBC (0-5) /HPF Urine WBC (0-5) /HPF Ur Squamous Epith Cells (<= Few) Urine Bacteria (None Seen) /HPF Ur Microscopic Review Urine Culture Comments 05/09/25 Range/Units 21:05 WBC (4.8-10.8) x10^3/uL RBC (4.20-5.40) 10^6/uL Hgb (12.0-16.0) g/dL Hct (37.0-47.0) % MCV (81.0-99.0) fL MCH (27.0-31.0) pg MCHC (32.0-36.0) g/dL RDW (12.0-15.0) % Plt Count (130-450) 10^3/uL MPV (7.9-10.8) fL Sodium (135-145) mmol/L Potassium (3.5-4.5) mmol/L Chloride (101-111) mmol/L Carbon Dioxide (21-32) mmol/L Anion Gap (6-13) BUN (6-20) mg/dL Creatinine (0.6-1.3) mg/dL Estimated GFR (MDRD) (>89) Glucose (74-104) mg/dL POC Whole Bld Glucose (70-100) mg/dL Estimat Average Glucose 134 H (70-100) mg/dL Hemoglobin A1c % 6.3 H (4.27-6.07) % Calcium (8.5-10.3) mg/dL Magnesium (1.7-2.3) mg/dL Total Creatine Kinase (30-223) IU/L Urine Color Urine Clarity (CLEAR) Urine pH (5.0-7.5) PH Ur Specific [place] (1.002-1.030) Urine Protein (NEGATIVE) mg/dL Urine Glucose (UA) (NEGATIVE) mg/dL Urine Ketones (NEGATIVE) mg/dL Urine Occult Blood (NEGATIVE) Urine Nitrite (NEGATIVE) Urine Bilirubin (NEGATIVE) Urine Urobilinogen (NORMAL) E.U./dL Ur Leukocyte Esterase (NEGATIVE) Urine RBC (0-5) /HPF Urine WBC (0-5) /HPF Ur Squamous Epith Cells (<= Few) Urine Bacteria (None Seen) /HPF Ur Microscopic Review Urine Culture Comments Diagnostic Imaging Diagnostic Imaging Results: positive Final report reviewed Assessment/Plan Problem List (1) Rhabdomyolysis: Qualifiers: Rhabdomyolysis type: non-traumatic Qualified Code(s): M62.82 - Rhabdomyolysis (2) Lactate blood increase: (3) Leukocytosis: Impression: Resolving Patient was down on the ground for over 3 days after sliding out of chair without PO intake. On admission, CK 2679, WBC 12, Lactate 2.3, CRP 7.4. CXR was negative, UA positive for bacteria and leukocytes but was contaminated. I suspect her leukocytosis, elevated lactate/CRP is secondary to rhabdo and will resolve as her CK decreases. She is not having any other signs/symptoms of systemic or urinary infection aside from her Covid symptoms. 05/11 CK 970, WBC normal, afebrile, improving Covid symptoms. Blood cultures NGTD. - IVF discontinued given continued CK improvement; continue to encourage PO intake - Strict I/O - Repeat CK level - Trend BMP - Follow-up blood cultures - Discontinued Ceftriaxone IV given lack of s/s of systemic and urinary infection; not indicated for Covid Qualifiers: Leukocytosis type: bandemia Qualified Code(s): D72.825 - Bandemia (4) Hypokalemia: Impression: K consistently borderline low, 3.2 on 05/11. She reports good PO intake. We are unsure as to what is causing her continued hypokalemia, she was given LR which has K, may be secondary to nutritional deprivation given she was without PO intake for a few days. - Continue to trend BMP - Potassium PO 40 mEq x 1 (5) Sinusitis: Qualifiers: Chronicity: subacute Sinusitis location: ethmoidal Qualified Code(s): J01.20 - Acute ethmoidal sinusitis, unspecified (6) COVID: Impression: Continues to endorse rhinorrhea and productive cough, but continues to improve since symptom onset on 05/05. She states she does have some polyps in the back of her nasal passage and resulting chronic sinus congestion, however this has been exacerbated with her Covid infection. Her SpO2 94% on room air, denies dyspnea/orthopnea and wheezing. - Out of 5-day window for Remdesivir - Supportive management with antitussives if needed, added Flonase for nasal congestion (7) Acute urinary retention: Impression: Patient developed acute urinary retention day 1 of hospital admission, bladder scan reading ~1L, nursing placed a Sidhu catheter with 1.3L urine output. She denies acute urinary symptoms at this time. - Continue Sidhu for today, consider voiding trial tomorrow once working with PT - Sidhu catheter care (8) Fall: Impression: Patient with limited support at baseline, only a helper a few hours a few times a week. No spouse or children, lives alone and independent with ADLs. She states she normally slides out of her chair a few times a year and will contact EMS to help her back up. Given her history and as she was on the ground for a few days without assistance I am concerned about deconditioning. - PT/OT evaluations Qualifiers: Encounter type: initial encounter Qualified Code(s): W19.XXXA - Unspecified fall, initial encounter (9) Hypertension: Impression: BP here is stable, no need for acute intervention at this time. - Continue home lisinopril 40mg PO daily as no evidence of kidney dysfunction Qualifiers: Hypertension type: unspecified Qualified Code(s): I10 - Essential (primary) hypertension (10) Hyperlipemia: Impression: Noted in history, she takes simvastatin for this at home. - Continue home simvastatin 40mg nightly Qualifiers: Hyperlipidemia type: unspecified Qualified Code(s): E78.5 - Hyperlipidemia, unspecified (11) Diabetes: Impression: HgbA1c is 6.3 this admission. She is well-controlled on her home diabetes regimen of metformin and sitagliptin, which she states she has been taking for over 15 years. BG is mildly elevated here 160-190s. - Hold metformin and sitagliptin - BG ACHS with low-dose correctional insulin while in house Qualifiers: Diabetes mellitus complication status: without complication Diabetes mellitus usp insulin use: without salvage determiner use Diabetes mellitus type: t ype 2 Qualified Code(s): E11.9 - Type 2 diabetes mellitus without complications (12) Pressure ulcer: Impression: Stage 2 sacral pressure ulcer, present on admission. Patient denies pain. D eveloping biofilm noted on exam 05/11. - Keep wound clean, promote offloading - Patient was counselled to reposition herself frequently to prevent worsening of wound - Wet-to-dry dressings for today, will consider manual debridement if worsening 05/12 Inpatient Checklist Lines/Drains/Airways: PIV, Sidhu catheter for acute urinary retention Fluids/Electrolytes/Nutrition: Carbohydrate controlled diet DVT Prophylaxis: Enoxaparin 40mg SQ daily Barriers to Discharge: Pending PT evaluation 05/12 for mobility assessment, will likely need placement Qualifiers: Pressure injury location: sacral region Pressure injury stage: stage 2 Qualified Code(s): L89.152 - Pressure ulcer of sacral region, stage 2
[2025-05-11] MEDS: BENZOCAINE/MENTHOL LOZENGE MM PRN (21:25)
[2025-05-11] MEDS: NYSTATIN POWDER 15 GM TOP SCH (21:25)
[2025-05-12 05:29] LABS: HCT - HEMATOCRIT 31.4 % (37.0-47.0); HGB - HEMOGLOBIN 9.9 g/dL (12.0-16.0); MEAN PLATELET VOLUME 10.8 fL (7.9-10.8); PLT - PLATELET COUNT 195.0 10^3/uL (130-450); RED CELL DISTRIBUTION WIDTH 14.2 % (12.0-15.0)
[2025-05-12 05:46] LABS: ALT ALANINE AMINOTRANSFERASE 38.0 IU/L (10-60); AST ASPARTATE AMINOTRANSFERASE 67.0 IU/L (10-42); BUN - BLOOD UREA NITROGEN 15.0 mg/dL (6-20); CARBON DIOXIDE - CO2 27.0 mmol/L (21-32); CK- CREATINE KINASE 522.0 IU/L (30-223); CREATININE 0.6 mg/dL (0.6-1.3); GFR - MDRD 97.0 (>89)
[2025-05-12] MEDS: ENOXAPARIN 40 MG/0.4 ML SYRINGE SUBQ SCH (08:14)
--- NOTE | 2025-05-12 08:15 | PROVIDER PROGRESS NOTE ---
Subjective Subjective Subjective: Mercedes Rodriguez (Marni) is a pleasant 74-year-old female with PMH of T2DM, arthritis, HTN, and HL who presents with severe weakness, rhinorrhea, and cough secondary to Covid resulting in fall found to be in rhabdomyolysis, now improving after IVF. Today, Mercedes states her Covid symptoms are improving; she describes less rhinorrhea, coughing less frequently. She states she feels exhausted from the whole experience of being down on the ground for days before being found, and being woken during the night while inpatient for vital signs. She denies dyspnea, chest pain, palpitations. She reports her last bowel movement was yesterday. She is overall not at her baseline physical function as she continues to have difficulty turning in bed without assistance. Diet: Carb-controlled Dispo: SNF, vs. Home with HH pending PT evaluation Code: Full DVT: Lovenox Current Medications Current Medications Current Medications: Current Medications Generic Name Dose Route Start Last Admin Trade Name Freq PRN Reason Stop Dose Admin Acetaminophen 650 mg 05/10/25 00:31 Acetaminophen 325 Mg Tablet PO Q4HR PRN Pain 1 to 4, or Fever Hydrocodone Bitart/Acetaminophen 1 tab 05/10/25 00:31 Hydrocod/Acetam 5/325 Mg Tablet PO Q4HR PRN Pain 5 to 7 Atorvastatin Calcium 20 mg 05/10/25 21:00 05/11/25 21:16 Atorvastatin 10 Mg Tablet PO 20 mg QPM ABBEY Administration Enoxaparin Sodium 40 mg 05/12/25 09:00 Enoxaparin 40 Mg/0.4 Ml Syringe SUBQ DAILY ABBEY Fluticasone Propionate 1 sprays 05/11/25 09:00 05/11/25 09:03 Fluticasone Nasal [place] JENNIFER 1 spray DAILY ABBEY Administration Guaifenesin 10 ml 05/11/25 16:08 05/11/25 16:58 Guaifenesin/Dextromethorphan 10 Ml Udc PO 10 ml Q6HR PRN Administration Cough Ibuprofen 600 mg 05/10/25 21:00 05/11/25 21:16 Ibuprofen 600 Mg Tablet PO 600 mg BID ABBEY Administration Insulin Human Lispro 1 - 9 unit 05/10/25 08:00 05/11/25 21:18 Insulin Lispro 300 Unit/3 Ml Pen SUBQ 3 unit 0800,1200,1700,2100 ABBEY Administration Protocol Lisinopril 40 mg 05/11/25 09:00 05/11/25 09:04 Lisinopril 20 Mg Tablet PO 40 mg DAILY ABBEY Administration Nystatin 1 applic 05/11/25 21:00 05/11/25 21:25 Nystatin Powder 15 Gm TOP 1 applic BID ABBEY Administration Ondansetron HCl 4 mg 05/10/25 00:31 Ondansetron Odt 4 Mg Tablet TL Q6HR PRN Nausea / Vomiting Oxycodone HCl 10 mg 05/10/25 00:31 Oxycodone 5 Mg Tablet PO Q4HR PRN Pain 8 to 10 Sodium Chloride 10 ml 05/10/25 00:31 Sodium Chloride Flush 0.9% 10 Ml Syringe IVP PRN PRN NEEDED PER PROVIDER ORDERS Sodium Chloride 10 ml 05/10/25 01:00 05/12/25 00:52 Sodium Chloride Flush 0.9% 10 Ml Syringe IVP 10 ml 0100,0900,1700 ABBEY Administration Throat Lozenges 1 lozenge 05/11/25 14:04 05/11/25 21:25 Benzocaine/Menthol Lozenge MM 1 lozenge Q2HR PRN Administration Throat pain Zolpidem Tartrate 5 mg 05/10/25 00:31 Zolpidem 5 Mg Tablet PO QPM PRN Insomnia Objective Vital Signs/Intake & Output Reviewed Vital Signs: Yes Vital Signs: Vital Signs x48h Temp Pulse Resp BP Pulse Ox 05/11/25 08:21 36.7 C 56 L 24 151/54 H 94 05/11/25 05:38 36.9 C Intake & Output: Intake & Output 05/09/25 05/10/25 05/11/25 05/12/25 23:59 23:59 23:59 23:59 Intake Total 6370 / 6370 1049 / 1049 Output Total 4000 / 4000 925 / 925 550 / 550 Balance 2370 / 2370 124 / 124 -550 / -550 Weight (kg) 113.7 kg 113.7 kg Objective General Appearance: positive No acute distress and Alert Eyes Bilateral: negative Normal inspection (Scant yellow discharge along inferior palpebras, without erythema or inflammation) ENT: negative ENT inspection nml (Small amounts of nasal serous drainage, noted in tissues at bedside ) Respiratory: positive No respiratory distress and Breath sounds nml; negative Wheezes, Rales or Rhonchi Cardiovascular: positive Systolic murmur Peripheral Pulses: 2+: Radial (R) and 2+: Radial (L) Abdomen: positive Nml bowel sounds and No distention Skin: positive Warm, Dry and Other (S2 sacral PU, superficial biofilm with scant serosanguineous drainage) Extremities: positive No pedal edema and Pedal edema; negative Non-tender (Bilateral shoulder, leg tenderness to palpation from chronic arthritis) or Full ROM (Limited BUE/BLE active ROM 2/2 arthritis) Neurologic/Psychiatric: positive Oriented x3 and Mood/affect nml Lab Results 05/12/25 05:03 05/12/25 05:03 Other Labs: Lab Results x24hrs 05/12/25 05/12/25 05/11/25 Range/Units 07:43 05:03 20:36 WBC 7.7 (4.8-10.8) x10^3/uL RBC 3.51 L (4.20-5.40) 10^6/uL Hgb 9.9 L (12.0-16.0) g/dL Hct 31.4 L (37.0-47.0) % MCV 89.5 (81.0-99.0) fL MCH 28.2 (27.0-31.0) pg MCHC 31.5 L (32.0-36.0) g/dL RDW 14.2 (12.0-15.0) % Plt Count 195 (130-450) 10^3/uL MPV 10.8 (7.9-10.8) fL Sodium 135 (135-145) mmol/L Potassium 3.6 (3.5-4.5) mmol/L Chloride 104 (101-111) mmol/L Carbon Dioxide 27 (21-32) mmol/L Anion Gap 4.0 L (6-13) BUN 15 (6-20) mg/dL Creatinine 0.6 (0.6-1.3) mg/dL Estimated GFR (MDRD) 97 (>89) Glucose 140 H (74-104) mg/dL POC Whole Bld Glucose 143 194 (70-100) mg/dL Calcium 8.3 L (8.5-10.3) mg/dL Magnesium 1.8 (1.7-2.3) mg/dL Total Bilirubin 0.4 (0.2-1.0) mg/dL AST 67 H (10-42) IU/L ALT 38 (10-60) IU/L Alkaline Phosphatase 40 L (42-121) IU/L Total Creatine Kinase 522 H (30-223) IU/L Total Protein 5.4 L (6.4-8.9) g/dL Albumin 2.9 L (3.2-5.5) g/dL Globulin 2.5 (2.1-4.2) g/dL Albumin/Globulin Ratio 1.2 (1.0-2.2) 05/11/25 05/11/25 Range/Units 16:38 10:53 WBC (4.8-10.8) x10^3/uL RBC (4.20-5.40) 10^6/uL Hgb (12.0-16.0) g/dL Hct (37.0-47.0) % MCV (81.0-99.0) fL MCH (27.0-31.0) pg MCHC (32.0-36.0) g/dL RDW (12.0-15.0) % Plt Count (130-450) 10^3/uL MPV (7.9-10.8) fL Sodium (135-145) mmol/L Potassium (3.5-4.5) mmol/L Chloride (101-111) mmol/L Carbon Dioxide (21-32) mmol/L Anion Gap (6-13) BUN (6-20) mg/dL Creatinine (0.6-1.3) mg/dL Estimated GFR (MDRD) (>89) Glucose (74-104) mg/dL POC Whole Bld Glucose 180 193 (70-100) mg/dL Calcium (8.5-10.3) mg/dL Magnesium (1.7-2.3) mg/dL Total Bilirubin (0.2-1.0) mg/dL AST (10-42) IU/L ALT (10-60) IU/L Alkaline Phosphatase (42-121) IU/L Total Creatine Kinase (30-223) IU/L Total Protein (6.4-8.9) g/dL Albumin (3.2-5.5) g/dL Globulin (2.1-4.2) g/dL Albumin/Globulin Ratio (1.0-2.2) Diagnostic Imaging Diagnostic Imaging Results: positive Final report reviewed Assessment/Plan Problem List (1) Rhabdomyolysis: Impression: Resolved. CPK trending down appropriately. IV fluids were stopped yesterday. Continue strict ins and outs. Encourage P.O. intake. Qualifiers: Rhabdomyolysis type: non-traumatic Qualified Code(s): M62.82 - Rhabdomyolysis (2) Lactate blood increase: Impression: Resolved. (3) Leukocytosis: Impression: Resolved. Discontinued Ceftriaxone IV (one dose given in the ED) given lack of signs or symptoms of systemic or urinary infection. Qualifiers: Leukocytosis type: bandemia Qualified Code(s): D72.825 - Bandemia (4) Hypokalemia: Impression: Resolved. Likely due to decreased P.O. intake. (5) Sinusitis: Impression: Resolved. Continue Flonase for symptomatic relief. Qualifiers: Chronicity: subacute Sinusitis location: ethmoidal Qualified Code(s): J01.20 - Acute ethmoidal sinusitis, unspecified (6) COVID: Impression: Continues to endorse rhinorrhea and productive cough, but continues to improve since symptom onset on 05/05. She states she does have some polyps in the back of her nasal passage and resulting chronic sinus congestion, however this has been exacerbated with her COVID infection. Supportive management with antitussives if needed, added Flonase for nasal congestion. (7) Acute urinary retention: Impression: Patient developed acute urinary retention day 1 of hospital admission, bladder scan reading ~1L, nursing placed a Sidhu catheter with 1.3L urine output. She denies acute urinary symptoms at this time. Will discontinue and complete trial of void today. (8) Fall: Impression: Patient with limited support at baseline, only a helper a few hours a few times a week. No spouse or children, lives alone and independent with ADLs. She states she normally slides out of her chair a few times a year and will contact EMS to help her back up. Given her history and as she was on the ground for a few days without assistance I am concerned about deconditioning. Awaiting PT evaluation. Qualifiers: Encounter type: initial encounter Qualified Code(s): W19.XXXA - Unspecified fall, initial encounter (9) Hypertension: Impression: Continue home lisinopril 40mg PO daily. Qualifiers: Hypertension type: unspecified Qualified Code(s): I10 - Essential (primary) hypertension (10) Hyperlipemia: Impression: Continue home simvastatin 40mg nightly. Qualifiers: Hyperlipidemia type: unspecified Qualified Code(s): E78.5 - Hyperlipidemia, unspecified (11) Diabetes: Impression: HgbA1c is 6.3 this admission. She is well-controlled on her home diabetes regimen of metformin and sitagliptin, which she states she has been taking for over 15 years. BG is mildly elevated here 160-190s. Hold metformin and sitagliptin. BG ACHS with low-dose correctional insulin while in house. Qualifiers: Diabetes mellitus complication status: without complication Diabetes mellitus chcf insulin use: without local intermodal truck driver use Diabetes mellitus type: t ype 2 Qualified Code(s): E11.9 - Type 2 diabetes mellitus without complications (12) Pressure ulcer: Impression: Stage 2 sacral pressure ulcer, present on admission. Patient denies pain. Today, there appears to be necrotic tissue. General surgery has been consulted for sharp debridement. Continue to monitor off antibiotics. Keep wound clean, promote offloading. Patient was counselled to reposition herself frequently to prevent worsening of wound. Wet-to-dry dressings for today. Qualifiers: Pressure injury location: sacral region Pressure injury stage: stage 2 Qualified Code(s): L89.152 - Pressure ulcer of sacral region, stage 2
--- NOTE | 2025-05-12 15:05 | CONSULTATION NOTE ---
Referring Provider Name of Referring Provider:: Medicine (Nomi) Consult Date: 05/12/25 Chief Complaint Chief Complaint Chief Complaint: Patient has sacral wound that needs debridment History of Present Illness Admitted From Admitted From:: ED History Obtained From Records Reviewed: yes History obtained from: patient, primary team, chart Exam Limitations: patient very hard of hearing History of Present Illness HPI Comment/Other: This is a 74-year-old who was admitted on 05/09/2025 with COVID infection, after being found to have at home. She reports lying in her own urine on the ground for 4 days prior to admission. At the time of admission, the patient was noted to have a pressure ulcer on her sacrum. During her time in the hospital, this has started to form an eschar, and for possible debridement I am consulted. The patient states she has never had any pressure wounds in the past and has never seen wound care before. She denies any pain in the area where the pressure wound is. She denies any fevers or chills. She does endorse a cough. PFS Active Problems All Active Problems Acute urinary retention (Acute) Hypokalemia (Acute) Fall (Acute) Leukocytosis (Acute) Lactate blood increase (Acute) Pressure ulcer (Acute) Rhabdomyolysis (Acute) Sinusitis (Chronic) COVID (Acute) Exposure to COVID-19 virus (Acute) Hyperlipemia (Chronic) Hypertension (Chronic) Diabetes (Chronic) Medical History Medical History Arthritis Social History Social History Smoking Status: Never smoker Second hand tobacco smoke exposure: No Do you dip or chew tobacco?: No Do you vape?: No Level: Independent Home Mobility Equipment: Walker Do you feel safe in your home environment?: Yes History of physical, verbal, emotional, or financial abuse?: No POLST Patient has POLST: No Meds/Allgy Home Medications Ambulatory Orders Medication Instructions Recorded Confirmed lisinopril 40 mg tablet 40 mg PO DAILY 05/09/2505/01 metformin 1,000 mg tablet 1,000 mg PO BID 05/09/2505/25 simvastatin 40 mg tablet 40 mg PO QPM 05/09/25 sitagliptin phosphate 25 mg tablet 25 mg PO DAILY 04/2505/10/25 (Januvia) Allergies Allergies Allergy/AdvReac Type Severity Reaction Status Date / Time Penicillins AdvReac Severe Hives Verified 05/09/25 20:16 Sulfa (Sulfonamide AdvReac Severe Hives Verified 05/09/25 20:16 Antibiotics) Results Lab Results 05/12/25 05:03 05/12/25 05:03 Other Lab Results: Lab Results x24hrs 05/12/25 05/12/25 05/12/25 Range/Units 11:28 07:43 05:03 WBC 7.7 (4.8-10.8) x10^3/uL RBC 3.51 L (4.20-5.40) 10^6/uL Hgb 9.9 L (12.0-16.0) g/dL Hct 31.4 L (37.0-47.0) % MCV 89.5 (81.0-99.0) fL MCH 28.2 (27.0-31.0) pg MCHC 31.5 L (32.0-36.0) g/dL RDW 14.2 (12.0-15.0) % Plt Count 195 (130-450) 10^3/uL MPV 10.8 (7.9-10.8) fL Sodium 135 (135-145) mmol/L Potassium 3.6 (3.5-4.5) mmol/L Chloride 104 (101-111) mmol/L Carbon Dioxide 27 (21-32) mmol/L Anion Gap 4.0 L (6-13) BUN 15 (6-20) mg/dL Creatinine 0.6 (0.6-1.3) mg/dL Estimated GFR (MDRD) 97 (>89) Glucose 140 H (74-104) mg/dL POC Whole Bld Glucose 167 143 (70-100) mg/dL Calcium 8.3 L (8.5-10.3) mg/dL Magnesium 1.8 (1.7-2.3) mg/dL Total Bilirubin 0.4 (0.2-1.0) mg/dL AST 67 H (10-42) IU/L ALT 38 (10-60) IU/L Alkaline Phosphatase 40 L (42-121) IU/L Total Creatine Kinase 522 H (30-223) IU/L Total Protein 5.4 L (6.4-8.9) g/dL Albumin 2.9 L (3.2-5.5) g/dL Globulin 2.5 (2.1-4.2) g/dL Albumin/Globulin Ratio 1.2 (1.0-2.2) 05/11/25 05/11/25 Range/Units 20:36 16:38 WBC (4.8-10.8) x10^3/uL RBC (4.20-5.40) 10^6/uL Hgb (12.0-16.0) g/dL Hct (37.0-47.0) % MCV (81.0-99.0) fL MCH (27.0-31.0) pg MCHC (32.0-36.0) g/dL RDW (12.0-15.0) % Plt Count (130-450) 10^3/uL MPV (7.9-10.8) fL Sodium (135-145) mmol/L Potassium (3.5-4.5) mmol/L Chloride (101-111) mmol/L Carbon Dioxide (21-32) mmol/L Anion Gap (6-13) BUN (6-20) mg/dL Creatinine (0.6-1.3) mg/dL Estimated GFR (MDRD) (>89) Glucose (74-104) mg/dL POC Whole Bld Glucose 194 180 (70-100) mg/dL Calcium (8.5-10.3) mg/dL Magnesium (1.7-2.3) mg/dL Total Bilirubin (0.2-1.0) mg/dL AST (10-42) IU/L ALT (10-60) IU/L Alkaline Phosphatase (42-121) IU/L Total Creatine Kinase (30-223) IU/L Total Protein (6.4-8.9) g/dL Albumin (3.2-5.5) g/dL Globulin (2.1-4.2) g/dL Albumin/Globulin Ratio (1.0-2.2) Review of Systems Status of ROS: 10 or more systems reviewed and unremarkable except as noted in history and below Exam Exam Vital Signs: Vital Signs x48h Temp Pulse Resp BP Pulse Ox 05/12/25 08:45 97.7 F 54 L 24 163/62 H 95 GEN: No acute distress, appears stated age, alert and oriented HEENT: NCAT, MMM, EOMI NEURO: CN II-XII grossly intact, no obvious focal deficits, very weak CV: RRR PULM: Nonlabored, on room air, minimally productive cough ABD: obese, soft, non tender, no rebound or guarding CIRCULATORY: no clubbing, cyanosis, or edema SKIN: Patient has a 5 x 5 cm stage II sacral pressure wound. The epidermis overlying the wound is starting to slough and is discolored. There are no signs where eschar is lifting to easily debride. The edges of the wound do demonstrate some developing granulation tissue. There are no signs of infection. She currently has a sacral Mepilex dressing over the wound. LYMPH: no obvious lymphadenopathy MSK: 3/4 strength in all extremities PSYCH: Affect is appropriate Conclusion/Plan Problem List (1) Rhabdomyolysis: Qualifiers: Rhabdomyolysis type: non-traumatic Qualified Code(s): M62.82 - Rhabdomyolysis (2) Lactate blood increase: (3) Leukocytosis: Qualifiers: Leukocytosis type: bandemia Qualified Code(s): D72.825 - Bandemia (4) Hypokalemia: (5) Sinusitis: Qualifiers: Chronicity: subacute Sinusitis location: ethmoidal Qualified Code(s): J01.20 - Acute ethmoidal sinusitis, unspecified (6) COVID: (7) Acute urinary retention: (8) Fall: Qualifiers: Encounter type: initial encounter Qualified Code(s): W19.XXXA - Unspecified fall, initial encounter (9) Hypertension: Qualifiers: Hypertension type: unspecified Qualified Code(s): I10 - Essential (primary) hypertension (10) Hyperlipemia: Qualifiers: Hyperlipidemia type: unspecified Qualified Code(s): E78.5 - Hyperlipidemia, unspecified (11) Diabetes: Qualifiers: Diabetes mellitus complication status: without complication Diabetes mellitus penitentiary insulin use: without penitentiary use Diabetes mellitus type: t ype 2 Qualified Code(s): E11.9 - Type 2 diabetes mellitus without complications (12) Pressure ulcer: Plan: I examined the wound with Dr. Mosher of medicine. There is no area amenable to sharp debridement at this time. I did demonstrate how to cleanse the wound and placed a wet-to-dry dressing over the wound to assist in further debridement. Very limited wound care supplies are available on the floor. I do encourage the patient to follow-up with wound care after discharge. She would likely benefit from an enzymatic wound debridement product. I would like to reexamine the wound tomorrow to reassess for further needs during her hospital stay. General surgery will follow. Qualifiers: Pressure injury location: sacral region Pressure injury stage: stage 2 Qualified Code(s): L89.152 - Pressure ulcer of sacral region, stage 2 Lab Results 05/12/25 05:03 05/12/25 05:03
--- NOTE | 2025-05-12 16:18 | PT Plan of Care ---
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 PMH includes B MATT, please see chart for complete medical hx. The pt was received resting comfortably supine in bed while on RA and presented today with mildly decreased B UE and LE strength, decreased activity tolerance, and increased LBP which limited her tolerance with all functional mobility. She required verbal encouragement to participate in mobility as she did not appear overly motivated today. Her overall tolerance throughout this assessment appeared to be more limited by this limited motivation and not weakness, fatigue, or pain. At this time recommend continued skilled PT intervention while in the acute setting and DC to SNF for further rehab once pt medically stable as she lives alone and is functioning below her baseline level of Ind. However, she may progress to being able to DC home with HH therapy to address her current deficits, sill update the team as pt progresses. This plan was discussed with the pt and she was in agreement with this. At the end of the session the pt was supine in bed with call light in reach, bed alarm on, and all needs met. RN and MD updated on pt's status and DC rec. PATIENT/FAMILY GOALS Patient/Family Goals: To be able to walk without getting SOB GOALS Improve supine to sit to:: Modified Independent Improve sit to stand to:: Modified Independent Improve pivot transfer ability to:: Modified Independent Improve sit to supine to:: Modified Independent Improve gait ability to:: SBA Advance Assistive Device to:: Front Wheeled Walker Increase distance walked to (in feet):: 75 PLAN Frequency: 1-2x/day Duration: Until goals are met DISCHARGE RECOMMENDATIONS Discharge Location: Detention Facility Support/Services Needed: With assist Other Discharge Equipment: pt owns all recommended DME Transport Needs at Discharge: POV vs WC van
--- NOTE | 2025-05-12 17:07 | ADVANCE CARE PLANNING NOTE ---
Advance Care Planning Planning Encounter Date: 05/11/25 Purpose: Estabih goals of care, determine code status. Parties in Attendance: Patient. Decisional Capacity of the Patient: Fully decisional. Diagnosis for Encounter (1) Rhabdomyolysis: Qualifiers: Rhabdomyolysis type: non-traumatic Qualified Code(s): M62.82 - Rhabdomyolysis Encounter Plan: Patient is a 74-year-old female with a history of progressive arthritis, hypertension, who presents after being down for a few days and not being able to get up. She has no family members close by, but lots of friends in the area. 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 She has had progressive and worsening arthritis in most of her joints, but especially her shoulders, as well as her back. She ambulates with a walker at home. She states that she has a few falls a year, for which she calls emergency services for help to get back up. She does have someone that comes in once a week to help with things like laundry, and cooking. We talked about her overall goals of care. Although she is in some pain, she still enjoys her life. She enjoys spending time with her friends, as well as her part-time work. She would like to be a full code at this time. Code Status: Attempt Resuscitation
[2025-05-13 05:37] LABS: HCT - HEMATOCRIT 32.1 % (37.0-47.0); HGB - HEMOGLOBIN 10.3 g/dL (12.0-16.0); MEAN PLATELET VOLUME 10.9 fL (7.9-10.8); PLT - PLATELET COUNT 219.0 10^3/uL (130-450); RED CELL DISTRIBUTION WIDTH 13.9 % (12.0-15.0)
[2025-05-13 05:52] LABS: BUN - BLOOD UREA NITROGEN 13.0 mg/dL (6-20); CARBON DIOXIDE - CO2 27.0 mmol/L (21-32); CREATININE 0.6 mg/dL (0.6-1.3); GFR - MDRD 97.0 (>89)
--- NOTE | 2025-05-13 06:51 | PROVIDER PROGRESS NOTE ---
Subjective General Admit Date: 05/10/25 Other Other Information/Narrative: Pain controlled. Tolerating diet. No f/c. Review of Systems Status of ROS: 10 or more systems reviewed and unremarkable except as noted in history and below Exam Exam Vital Signs: Vital Signs x48h Temp Pulse Resp BP Pulse Ox 05/13/25 09:15 98.2 F 54 L 18 165/62 H 92 GEN: No acute distress, appears stated age, alert and oriented HEENT: NCAT, MMM, EOMI NEURO: CN II-XII grossly intact, no obvious focal deficits, very weak CV: RRR PULM: Nonlabored, on room air, minimally productive cough ABD: obese, soft, non tender, no rebound or guarding CIRCULATORY: no clubbing, cyanosis, or edema SKIN: Patient has a 10x11 cm (I did not measure yesterday, but did today; this number is accurate) stage II sacral pressure wound. The epidermis overlying the wound is starting to slough and is discolored. There are no signs where eschar is lifting to easily debride. The edges of the wound do demonstrate some developing granulation tissue. There are no signs of infection. She currently has a sacral Mepilex dressing over the wound. LYMPH: no obvious lymphadenopathy MSK: 3/4 strength in all extremities PSYCH: Affect is appropriate Impression/Plan Problem List (1) Rhabdomyolysis: Qualifiers: Rhabdomyolysis type: non-traumatic Qualified Code(s): M62.82 - Rhabdomyolysis Plan 74 y/o F with sacral pressure wound: I examined the wound with Dr. Mosher of medicine. There is still no area amenable to sharp debridement at this time. Very limited wound care supplies are available on the floor. I do encourage the patient to follow-up with wound care after discharge. She would likely benefit from an enzymatic wound debridement product. Surgery will follow preipherally. Please call the watcher automat long goods surgeon if new questions, concerns arise. Thank you for consulting us in the care of this patient!
--- NOTE | 2025-05-13 09:30 | Discharge Summary ---
"Discharge Summary Admit Date: 05/09/25 Discharge Date: 05/16/25 Discharging Provider: Dr. Mark Mosher Primary Care Provider: None Code Status: Attempt Resuscitation Discharge Facility Name: Home Health DIAGNOSES Discharge Diagnoses with Status of Each Condition: Rhabdomyolysis, lactic acidosis, leukocytosisresolved. IV fluids stopped. Encourage p.o. intake. No other signs or symptoms of infectious process at this time. Hypokalemialikely due to decreased p.o. intake, resolved. Sinusitischronic issue, resolving. COVIDsupportive management with antitussives as needed, Flonase, encouraged adequate hydration and nutrition. Acute urinary retentionmaintain Sidhu catheter on discharge, will need follow- up with urology for trial of void in the outpatient. [facility] recommends SNF, patient is able to pay for this [id number]. Home health care. Hypertensioncontinue lisinopril. Hyperlipidemiacontinue statin. Diabetescontinue home medications, metformin and sitagliptin. Pressure ulcerevaluated by general surgery, not a candidate for debridement at this time. Will need wound care in the outpatient. Wet-to-dry dressings, consistent offloading with repositioning. Enzymatic debridement if she gets in with wound care. HPI History of Present Illness: Per Dr. Bernal: Patient is 74 y/o Diabetic F with prior hx of HTN and HLD not on insulin treatment, prior history of taking COVID-19 vaccines, lives alone and uses cane or walker to ambulate due to arthritis, presented today following fall and unable to walk due to diffuse generalized weakness, patient was diagnosed COVID - 19 five days, ago from home covid - 19 testing . EMS found patient on floor and patient admits svere weakness since last 3 days, as per my discussion with ER MD patient was found on floor with severe lethargy and bowel movement on floor, Patinet presented to hospital for further evaluation of symptoms. Describes diffuse weakness, runny nose, dry cough but no fever and not passing out. denies diarrhea, hedaceh. CONSULTS | PROCEDURES Consultations: PT, social work Procedures: Chest x-ray HOSPITAL COURSE Hospital Course: Patient is a 74-year-old female with a history of chronic debility due to severe arthritis, GERD, hypertension and hyperlipidemia who presented after falling down, and she was unable to get back up. She was down for about 2 to 3 days when neighbor finally heard her, and EMS was called. She is found to be in rhabdomyolysis, and received IV fluids. She also tested positive for COVID, which likely led to the acute worsening in her condition. While she was here, she was found to have a grade 2 sacral ulcer. This was evaluated by general surgery for possible debridement, but she was not a candidate at this time. Continue wet-to-dry dressings, consistent repositioning. During her stay, she was also found to be retaining urine. Sidhu catheter was placed and she failed a trial of void. As such, Sidhu catheter was reinserted. She will need follow- up with urology and repeat trial of void in the outpatient setting. Home health nurse will be helping to maintain the Sidhu catheter. Plan was home with home health versus SNF. Unfortunately, she cannot pay for SNF [id number], and her insurance was not willing to pay for SNF. She has been seen by PT on the days leading up to her discharge. She has functional strength and is able to ambulate in the room. She is pain limitedfrom her arthritis. She also is quite anxious about mobility given her frequent falls. As such she is required assist with mobility here, varying from standby assist to moderate assist at times. She is historically not that mobile at home, hence her sacral ulcer she came in with. She is being discharged with home health for both wound care evaluation as well as ongoing home health PT. Given her debility, she will likely discharge via ambulance to home and may need a lift assist to get into her front door. ALLERGIES Allergies Allergy/AdvReac Type Severity Reaction Status Date / Time Penicillins AdvReac Severe Hives Verified 05/09/25 20:16 Sulfa (Sulfonamide AdvReac Severe Hives Verified 05/09/25 20:16 Antibiotics) MEDICATIONS Ambulatory Orders Medication Instructions Recorded Confirmed lisinopril 40 mg tablet 40 mg PO DAILY 05/09/2505/01 metformin 1,000 mg tablet 1,000 mg PO BID 05/09/2505/25 simvastatin 40 mg tablet 40 mg PO QPM 05/09/25 sitagliptin phosphate 25 mg tablet 25 mg PO DAILY 04/2505/10/25 (Januvia) PHYSICAL EXAM AT DISCHARGE Vital Signs: Vital Signs x48h Temp Pulse Resp BP Pulse Ox 05/16/25 07:35 36.4 C L 52 L 20 167/65 H 93 General Appearance: positive No acute distress and Alert Eyes Bilateral: negative Normal inspection (Scant yellow discharge along inferior palpebras, without erythema or inflammation) ENT: negative ENT inspection nml (Small amounts of nasal serous drainage, noted in tissues at bedside ) Respiratory: positive No respiratory distress and Breath sounds nml; negative Wheezes, Rales or Rhonchi Cardiovascular: positive Systolic murmur Peripheral Pulses: 2+: Radial (R) and 2+: Radial (L) Abdomen: positive Nml bowel sounds and No distention Back: positive Other (10 cm sacral ulcer with granulation tissue forming around borders. No active bleeding, no purulence noted. Some serosanguinous drainage.) Skin: positive Warm, Dry and Other (10 cm sacral ulcer with granulation tissue forming around borders. No active bleeding, no purulence noted.) Extremities: positive No pedal edema and Pedal edema; negative Non-tender (Bilateral shoulder, leg tenderness to palpation from chronic arthritis) or Full ROM (Limited BUE/BLE active ROM 2/2 arthritis) Neurologic/Psychiatric: positive Oriented x3 and Mood/affect nml LABS 05/14/25 05:04 05/15/25 04:38 FOLLOW UP Follow Up: Follow up PCP. Follow up urology. TIME SPENT Time Spent in Discharge (Minutes): 35 Discharge Plan Discharge Patient Disposition: 06 Home Health Service Condition: Fair Prescriptions: Continued simvastatin 40 mg tablet 40 mg PO QPM metformin 1,000 mg tablet 1,000 mg PO BID lisinopril 40 mg tablet 40 mg PO DAILY Januvia 25 mg tablet 25 mg PO DAILY Activity Restrictions: Activity as Tolerated Diet: Regular Health Concerns: You came in because you had fallen and you are not able to get up. You tested positive for COVID, which was likely contributing to your weakness. Initially, you had a condition called rhabdomyolysis due to your prolonged downtime. This is essentially muscle breakdown. When your muscle breaks down, it can lead to the release of substances that can affect your kidneys. We treated this with IV fluids, and your kidneys have been looking great. Additionally, you have not required any oxygen with your COVID-19 diagnosis, and that starting to improve as well. I know you are feeling pretty weak and debilitated, due to your COVID-19 diagnosis, and your ongoing arthritis. You have been seen by physical therapy, and you are physically strong enough to walk at home, I would encourage you to continue to do so. I am setting up home health services to help with your wound care as well as ongoing physical therapy. You should follow-up with your primary care doctor within a few weeks to continue skilled services at home. You have a grade II sacral ulcer (a sore on the skin over your lower back). This means the top layers of your skin are broken, but the wound does not go deeper than the skin. * Keep pressure off the sore:Change your position at least every 2 hours when in bed, and every hour when sitting. Use pillows or foam pads to protect the area. Special mattresses or cushions may help. * Keep the wound clean: Clean the ulcer gently with saline (salt water) or clean tap water. Do not use harsh child support specialist like hydrogen peroxide, which can damage healing tissue. * Use the right dressing: Your healthcare team may recommend a hydrocellular or hydrocolloid dressing. These help keep the wound moist and protect it while it heals. Hydrocellular dressings may help the sore heal faster than hydrocolloid dressings, but both are safe and effective for stage II ulcers. Change the dressing as instructed, and be gentle when removing it to avoid hurting the skin. * Watch for signs of infection: Call your healthcare provider if you notice increased redness, swelling, warmth, pus, a bad smell, or if you develop a fever. New or worsening pain can also be a sign of infection. * Eat a healthy diet: Good nutrition helps wounds heal. Try to eat enough protein (meat, eggs, dairy, beans) and drink plenty of fluids. While you have been here, you were also holding onto an retaining urine. As such, we will be discharging home with a catheter. Your home nurse will help you care for it. You should follow-up with a urologist to further evaluate. I am giving you the follow-up information to their office. * Keep the catheter and tubing secured to your leg to prevent pulling or movement. * Check the tubing often to make sure it is not kinked or twisted, which can block urine flow. * Empty the urine bag regularly, at least every 8 hours or when it is about two- thirds full. Wash your hands before and after emptying the bag. Do not let the drainage spout touch anything. * Clean the area where the catheter enters your body daily with soap and water. Do not use alcohol or harsh antiseptics, as these can irritate your skin. * Do not disconnect the catheter from the drainage bag. This keeps the system closed and helps prevent infection. * Watch for signs of infection or blockage: fever, chills, pain in your lower belly or back, cloudy or foul-smelling urine, blood in the urine, or if urine stops draining. * If the catheter falls out, do not try to put it back in. Call your healthcare provider right away. I understand that this has been frustrating. We are glad you're feeling better. Thank you for allowing us to take care of you. Print Language: Burkinan Patient Instructions: Urinary Catheter Bag Care Stand Alone Forms: PCP List Follow-up Care: Jad Alvarez MD [Provider Admit Priv/Credential, Urology] - 2 Weeks Vitals documented within 30 minutes of discharge?: Yes"
--- NOTE | 2025-05-13 13:31 | PROVIDER PROGRESS NOTE ---
Subjective Subjective Subjective: Mercedes Rodriguez (Marni) is a pleasant 74-year-old female with PMH of T2DM, arthritis, HTN, and HL who presents with severe weakness, rhinorrhea, and cough secondary to Covid resulting in fall found to be in rhabdomyolysis. Resolved now. Today, she is feeling better. She still some sweats, but her cough is improving. She is eating and drinking well. She still feels very weak and debilitated. Diet: Carb-controlled Dispo: SNF, vs. Home with Code: Full DVT: Lovenox Current Medications Current Medications Current Medications: Current Medications Generic Name Dose Route Start Last Admin Trade Name Freq PRN Reason Stop Dose Admin Acetaminophen 650 mg 05/10/25 00:31 Acetaminophen 325 Mg Tablet PO Q4HR PRN Pain 1 to 4, or Fever Hydrocodone Bitart/Acetaminophen 1 tab 05/10/25 00:31 Hydrocod/Acetam 5/325 Mg Tablet PO Q4HR PRN Pain 5 to 7 Atorvastatin Calcium 20 mg 05/10/25 21:00 05/12/25 21:56 Atorvastatin 10 Mg Tablet PO 20 mg QPM ABBEY Administration Enoxaparin Sodium 40 mg 05/12/25 09:00 05/13/25 09:07 Enoxaparin 40 Mg/0.4 Ml Syringe SUBQ 40 mg DAILY ABBEY Administration Fluticasone Propionate 1 sprays 05/11/25 09:00 05/13/25 09:07 Fluticasone Nasal [place] JENNIFER 1 spray DAILY ABBEY Administration Guaifenesin 10 ml 05/11/25 16:08 05/13/25 09:07 Guaifenesin/Dextromethorphan 10 Ml Udc PO 10 ml Q6HR PRN Administration Cough Ibuprofen 600 mg 05/10/25 21:00 05/13/25 09:07 Ibuprofen 600 Mg Tablet PO 600 mg BID ABBEY Administration Insulin Human Lispro 1 - 9 unit 05/10/25 08:00 05/13/25 12:02 Insulin Lispro 300 Unit/3 Ml Pen SUBQ 3 unit 0800,1200,1700,2100 ABBEY Administration Protocol Lisinopril 40 mg 05/11/25 09:00 05/13/25 09:07 Lisinopril 20 Mg Tablet PO 40 mg DAILY ABBEY Administration Nystatin 1 applic 05/11/25 21:00 05/13/25 09:07 Nystatin Powder 15 Gm TOP 1 applic BID ABBEY Administration Ondansetron HCl 4 mg 05/10/25 00:31 Ondansetron Odt 4 Mg Tablet TL Q6HR PRN Nausea / Vomiting Oxycodone HCl 10 mg 05/10/25 00:31 Oxycodone 5 Mg Tablet PO Q4HR PRN Pain 8 to 10 Sodium Chloride 10 ml 05/10/25 00:31 Sodium Chloride Flush 0.9% 10 Ml Syringe IVP PRN PRN NEEDED PER PROVIDER ORDERS Sodium Chloride 10 ml 05/10/25 01:00 05/13/25 09:08 Sodium Chloride Flush 0.9% 10 Ml Syringe IVP 10 ml 0100,0900,1700 ABBEY Administration Throat Lozenges 1 lozenge 05/11/25 14:04 05/13/25 09:08 Benzocaine/Menthol Lozenge MM 1 lozenge Q2HR PRN Administration Throat pain Objective Vital Signs/Intake & Output Reviewed Vital Signs: Yes Vital Signs: Vital Signs x48h Temp Pulse Resp BP Pulse Ox 05/13/25 09:15 98.2 F 54 L 18 165/62 H 92 Intake & Output: Intake & Output 05/10/25 05/11/25 05/12/25 05/13/25 23:59 23:59 23:59 23:59 Intake Total 6370 / 6370 1049 / 1049 760 / 760 560 / 560 Output Total 4000 / 4000 925 / 925 1900 / 1900 1550 / 1550 Balance 2370 / 2370 124 / 124 -1140 / -1140 -990 / -990 Weight (kg) 113.7 kg Objective General Appearance: positive No acute distress and Alert Eyes Bilateral: negative Normal inspection (Scant yellow discharge along inferior palpebras, without erythema or inflammation) ENT: negative ENT inspection nml (Small amounts of nasal serous drainage, noted in tissues at bedside ) Respiratory: positive No respiratory distress and Breath sounds nml; negative Wheezes, Rales or Rhonchi Cardiovascular: positive Systolic murmur Peripheral Pulses: 2+: Radial (R) and 2+: Radial (L) Abdomen: positive Nml bowel sounds and No distention Back: positive Other (10 cm sacral ulcer with granulation tissue forming around borders. No active bleeding, no purulence noted. Some serosanguinous drainage.) Skin: positive Warm, Dry and Other (10 cm sacral ulcer with granulation tissue forming around borders. No active bleeding, no purulence noted.) Extremities: positive No pedal edema and Pedal edema; negative Non-tender (Bilateral shoulder, leg tenderness to palpation from chronic arthritis) or Full ROM (Limited BUE/BLE active ROM 2/2 arthritis) Neurologic/Psychiatric: positive Oriented x3 and Mood/affect nml Lab Results 05/13/25 05:09 05/13/25 05:09 Other Labs: Lab Results x24hrs 05/13/25 05/13/25 05/13/25 Range/Units 11:16 08:31 05:09 WBC 9.7 (4.8-10.8) x10^3/uL RBC 3.64 L (4.20-5.40) 10^6/uL Hgb 10.3 L (12.0-16.0) g/dL Hct 32.1 L (37.0-47.0) % MCV 88.2 (81.0-99.0) fL MCH 28.3 (27.0-31.0) pg MCHC 32.1 (32.0-36.0) g/dL RDW 13.9 (12.0-15.0) % Plt Count 219 (130-450) 10^3/uL MPV 10.9 H (7.9-10.8) fL Sodium 137 (135-145) mmol/L Potassium 3.5 (3.5-4.5) mmol/L Chloride 105 (101-111) mmol/L Carbon Dioxide 27 (21-32) mmol/L Anion Gap 5.0 L (6-13) BUN 13 (6-20) mg/dL Creatinine 0.6 (0.6-1.3) mg/dL Estimated GFR (MDRD) 97 (>89) Glucose 142 H (74-104) mg/dL POC Whole Bld Glucose 188 146 (70-100) mg/dL Calcium 8.6 (8.5-10.3) mg/dL Magnesium 1.7 (1.7-2.3) mg/dL 05/12/25 05/12/25 Range/Units 20:33 16:55 WBC (4.8-10.8) x10^3/uL RBC (4.20-5.40) 10^6/uL Hgb (12.0-16.0) g/dL Hct (37.0-47.0) % MCV (81.0-99.0) fL MCH (27.0-31.0) pg MCHC (32.0-36.0) g/dL RDW (12.0-15.0) % Plt Count (130-450) 10^3/uL MPV (7.9-10.8) fL Sodium (135-145) mmol/L Potassium (3.5-4.5) mmol/L Chloride (101-111) mmol/L Carbon Dioxide (21-32) mmol/L Anion Gap (6-13) BUN (6-20) mg/dL Creatinine (0.6-1.3) mg/dL Estimated GFR (MDRD) (>89) Glucose (74-104) mg/dL POC Whole Bld Glucose 157 130 (70-100) mg/dL Calcium (8.5-10.3) mg/dL Magnesium (1.7-2.3) mg/dL Diagnostic Imaging Diagnostic Imaging Results: positive Final report reviewed Assessment/Plan Problem List (1) Rhabdomyolysis: Impression: Resolved. CPK trending down appropriately. IV fluids were stopped yesterday. Continue strict ins and outs. Encourage P.O. intake. Qualifiers: Rhabdomyolysis type: non-traumatic Qualified Code(s): M62.82 - Rhabdomyolysis (2) Lactate blood increase: Impression: Resolved. (3) Leukocytosis: Impression: Resolved. Discontinued Ceftriaxone IV (one dose given in the ED) given lack of signs or symptoms of systemic or urinary infection. Qualifiers: Leukocytosis type: bandemia Qualified Code(s): D72.825 - Bandemia (4) Hypokalemia: Impression: Resolved. Likely due to decreased P.O. intake. (5) Sinusitis: Impression: Resolved. Continue Flonase for symptomatic relief. Qualifiers: Chronicity: subacute Sinusitis location: ethmoidal Qualified Code(s): J01.20 - Acute ethmoidal sinusitis, unspecified (6) COVID: Impression: Continues to endorse rhinorrhea and productive cough, but continues to improve since symptom onset on 05/05. She states she does have some polyps in the back of her nasal passage and resulting chronic sinus congestion, however this has been exacerbated with her COVID infection. Supportive management with antitussives if needed, added Flonase for nasal congestion. (7) Acute urinary retention: Impression: Patient developed acute urinary retention day 1 of hospital admission, bladder scan reading ~1L, nursing placed a Sidhu catheter with 1.3L urine output. Failed trial of void. Sidhu catheter reinserted; will discharge with Sidhu in place, and will need follow up with Urology. (8) Fall: Impression: Patient with limited support at baseline, only a helper a few hours a few times a week. No spouse or children, lives alone and independent with ADLs. She states she normally slides out of her chair a few times a year and will contact EMS to help her back up. Given her history and as she was on the ground for a few days without assistance I am concerned about deconditioning. PT reccomends SNF. Qualifiers: Encounter type: initial encounter Qualified Code(s): W19.XXXA - Unspecified fall, initial encounter (9) Hypertension: Impression: Continue home lisinopril 40mg PO daily. Qualifiers: Hypertension type: unspecified Qualified Code(s): I10 - Essential (primary) hypertension (10) Hyperlipemia: Impression: Continue home simvastatin 40mg nightly. Qualifiers: Hyperlipidemia type: unspecified Qualified Code(s): E78.5 - Hyperlipidemia, unspecified (11) Diabetes: Impression: HgbA1c is 6.3 this admission. She is well-controlled on her home diabetes regimen of metformin and sitagliptin, which she states she has been taking for over 15 years. BG is mildly elevated here 160-190s. Hold metformin and sitagliptin. BG ACHS with low-dose correctional insulin while in house. Qualifiers: Diabetes mellitus complication status: without complication Diabetes mellitus long term care pharmacist insulin use: without long term care pharmacist use Diabetes mellitus type: t ype 2 Qualified Code(s): E11.9 - Type 2 diabetes mellitus without complications (12) Pressure ulcer: Impression: Stage 2 sacral pressure ulcer, present on admission. Patient denies pain. Today, there appears to be necrotic tissue. General surgery was consulted - no debridement needed at this time, continue wet-to-dry dressing. Keep wound clean, promote offloading. Patient was counselled to reposition herself frequently to prevent worsening of wound. Qualifiers: Pressure injury location: sacral region Pressure injury stage: stage 2 Qualified Code(s): L89.152 - Pressure ulcer of sacral region, stage 2
[2025-05-14 05:39] LABS: HCT - HEMATOCRIT 31.5 % (37.0-47.0); HGB - HEMOGLOBIN 10.3 g/dL (12.0-16.0); MEAN PLATELET VOLUME 10.7 fL (7.9-10.8); PLT - PLATELET COUNT 230.0 10^3/uL (130-450); RED CELL DISTRIBUTION WIDTH 13.8 % (12.0-15.0)
[2025-05-14 06:24] LABS: BUN - BLOOD UREA NITROGEN 12.0 mg/dL (6-20); CARBON DIOXIDE - CO2 27.0 mmol/L (21-32); CREATININE 0.5 mg/dL (0.6-1.3); GFR - MDRD 120.0 (>89)
--- NOTE | 2025-05-14 07:42 | PROVIDER PROGRESS NOTE ---
Subjective Prog Note Date Prog Note Date: 05/14/25 Prog Note Time: 07:39 Subjective Subjective: Discharge was attempted yesterday, but was evidently inappropriate. She was unable to transfer to a taxi. She was brought back to her room. There was consideration for transferring her home via ambulance but graciously that did not happen. Ongoing dispo planning. Vital signs and labs reviewed, hemoglobin is 10.3 and stable. Kidney function remained stable. Creatinine 0.5. Other than a heart rate of 52, patient's vital signs are stable. Received 4 units sliding scale insulin yesterday. Continues have pain in multiple joints which is chronic for her. I am uptitrating her pain medications today. Additionally having some symptoms from her COVID, continues to have a productive cough. Describes feverish symptoms (chills, sweats). While I am scheduling Tylenol mainly for pain as above, this may help with her febrile symptoms. Current Medications Current Medications Current Medications: Current Medications Generic Name Dose Route Start Last Admin Trade Name Freq PRN Reason Stop Dose Admin Acetaminophen 650 mg 05/10/25 00:31 Acetaminophen 325 Mg Tablet PO Q4HR PRN Pain 1 to 4, or Fever Hydrocodone Bitart/Acetaminophen 1 tab 05/10/25 00:31 Hydrocod/Acetam 5/325 Mg Tablet PO Q4HR PRN Pain 5 to 7 Atorvastatin Calcium 20 mg 05/10/25 21:00 05/13/25 20:51 Atorvastatin 10 Mg Tablet PO 20 mg QPM ABBEY Administration Enoxaparin Sodium 40 mg 05/12/25 09:00 05/13/25 09:07 Enoxaparin 40 Mg/0.4 Ml Syringe SUBQ 40 mg DAILY ABBEY Administration Fluticasone Propionate 1 sprays 05/11/25 09:00 05/13/25 09:07 Fluticasone Nasal [place] JENNIFER 1 spray DAILY ABBEY Administration Guaifenesin 10 ml 05/11/25 16:08 05/13/25 09:07 Guaifenesin/Dextromethorphan 10 Ml Udc PO 10 ml Q6HR PRN Administration Cough Ibuprofen 600 mg 05/10/25 21:00 05/13/25 20:52 Ibuprofen 600 Mg Tablet PO 600 mg BID ABBEY Administration Insulin Human Lispro 1 - 9 unit 05/10/25 08:00 05/13/25 20:51 Insulin Lispro 300 Unit/3 Ml Pen SUBQ 1 unit 0800,1200,1700,2100 ABBEY Administration Protocol Lisinopril 40 mg 05/11/25 09:00 05/13/25 09:07 Lisinopril 20 Mg Tablet PO 40 mg DAILY ABBEY Administration Nystatin 1 applic 05/11/25 21:00 05/13/25 20:53 Nystatin Powder 15 Gm TOP 1 applic BID ABBEY Administration Ondansetron HCl 4 mg 05/10/25 00:31 Ondansetron Odt 4 Mg Tablet TL Q6HR PRN Nausea / Vomiting Oxycodone HCl 10 mg 05/10/25 00:31 Oxycodone 5 Mg Tablet PO Q4HR PRN Pain 8 to 10 Sodium Chloride 10 ml 05/10/25 00:31 Sodium Chloride Flush 0.9% 10 Ml Syringe IVP PRN PRN NEEDED PER PROVIDER ORDERS Sodium Chloride 10 ml 05/10/25 01:00 05/14/25 00:02 Sodium Chloride Flush 0.9% 10 Ml Syringe IVP 10 ml 0100,0900,1700 ABBEY Administration Throat Lozenges 1 lozenge 05/11/25 14:04 05/13/25 09:08 Benzocaine/Menthol Lozenge MM 1 lozenge Q2HR PRN Administration Throat pain Objective Vital Signs/Intake & Output Reviewed Vital Signs: Yes Vital Signs: Vital Signs x48h Temp Pulse Resp BP Pulse Ox 05/14/25 00:17 36.6 C 52 L 20 160/65 H 95 Intake & Output: Intake & Output 05/11/25 05/12/25 05/13/25 05/14/25 23:59 23:59 23:59 23:59 Intake Total 1049 / 1049 760 / 760 1340 / 1340 Output Total 925 / 925 1900 / 1900 3625 / 3625 550 / 550 Balance 124 / 124 -1140 / -1140 -2285 / -2285 -550 / -550 Objective Comments/Other: GEN: No acute distress HEENT: NC/AT, normal appearance of external ears and nose. Hard of hearing at baseline. Cardiac: Regular rate and rhythm, no murmurs. Euvolemic generally. Pulm: Bilateral rhonchi. No rales appreciated. Productive cough. No wheezing. Normal effort on room air. Abdomen: Soft, nontender, nondistended. No rebound or guarding Extremities: Moves all 4 extremities equally. Normal tone. Knees without any effusion or surrounding erythema. Neuro: Face symmetric, CN II through XII intact grossly. No focal neurologic deficits. Psych: Mood euthymic with congruent affect. Cooperative. Lab Results 05/14/25 05:04 05/14/25 05:04 Other Labs: Lab Results x24hrs 05/14/25 05/13/25 05/13/25 Range/Units 05:04 20:48 17:53 WBC 9.0 (4.8-10.8) x10^3/uL RBC 3.57 L (4.20-5.40) 10^6/uL Hgb 10.3 L (12.0-16.0) g/dL Hct 31.5 L (37.0-47.0) % MCV 88.2 (81.0-99.0) fL MCH 28.9 (27.0-31.0) pg MCHC 32.7 (32.0-36.0) g/dL RDW 13.8 (12.0-15.0) % Plt Count 230 (130-450) 10^3/uL MPV 10.7 (7.9-10.8) fL Sodium 139 (135-145) mmol/L Potassium 3.5 (3.5-4.5) mmol/L Chloride 106 (101-111) mmol/L Carbon Dioxide 27 (21-32) mmol/L Anion Gap 6.0 (6-13) BUN 12 (6-20) mg/dL Creatinine 0.5 L (0.6-1.3) mg/dL Estimated GFR (MDRD) 120 (>89) Glucose 135 H (74-104) mg/dL POC Whole Bld Glucose 167 127 (70-100) mg/dL Calcium 8.5 (8.5-10.3) mg/dL Magnesium 1.6 L (1.7-2.3) mg/dL 05/13/25 05/13/25 Range/Units 11:16 08:31 WBC (4.8-10.8) x10^3/uL RBC (4.20-5.40) 10^6/uL Hgb (12.0-16.0) g/dL Hct (37.0-47.0) % MCV (81.0-99.0) fL MCH (27.0-31.0) pg MCHC (32.0-36.0) g/dL RDW (12.0-15.0) % Plt Count (130-450) 10^3/uL MPV (7.9-10.8) fL Sodium (135-145) mmol/L Potassium (3.5-4.5) mmol/L Chloride (101-111) mmol/L Carbon Dioxide (21-32) mmol/L Anion Gap (6-13) BUN (6-20) mg/dL Creatinine (0.6-1.3) mg/dL Estimated GFR (MDRD) (>89) Glucose (74-104) mg/dL POC Whole Bld Glucose 188 146 (70-100) mg/dL Calcium (8.5-10.3) mg/dL Magnesium (1.7-2.3) mg/dL Diagnostic Imaging Diagnostic Imaging Results: positive Final report reviewed Diagnostic Imaging Comments: Chest x-ray from 05/09 reveals no acute cardiopulmonary process. Assessment/Plan Problem List (1) Rhabdomyolysis: Impression: Initially presenting with posttraumatic rhabdomyolysis. Patient was down for several days prior to admission. Her CPK downtrended over the first days of her hospitalization from 2600 down to 522 when it was last measured on 05/12. She is orally repleted and fluids. IV fluids stopped 05/12 - Continue strict I/O, encourage p.o. intake - Kidney function remained stable so far, no longer trending creatinine Qualifiers: Rhabdomyolysis type: non-traumatic Qualified Code(s): M62.82 - Rhabdomyolysis (2) Pressure ulcer: Impression: Stable, needing wound care Patient has a stage II sacral pressure ulcer. Denies any pain from this. Debrided surgically on 05/12. - Continue repositioning for offloading, patient currently needing help with this as below. - Continue daily dressing changes - Patient will need ongoing wound care Qualifiers: Pressure injury location: sacral region Pressure injury stage: stage 2 Qualified Code(s): L89.152 - Pressure ulcer of sacral region, stage 2 (3) General weakness: (4) Arthritis: (5) Fall: Impression: Patient presented following ground-level fall several days prior to admission. She lives at home alone. Her pain is limited predominantly by her polyarthritis which she has chronically. She admits that she is quite immobile at baseline but she does normally slide out of her chair several times a year and has to contact EMS to help her get back up. PT is seeing her, and did say that she had good functional capacity, but was limited by her motivation. They were recommending SNF. Unfortunately she has been unable to discharge to SNF for financial reasons. She has no focal weakness on my exam. - Continue to rehab here, PT to see ideally 05/15 - Scheduling Tylenol and ibuprofen for her polyarthropathy - Mobilize to the chair for meals - Continue to encourage her mobility around the room, will DC Sidhu as soon as able Qualifiers: Encounter type: initial encounter Qualified Code(s): W19.XXXA - Unspecified fall, initial encounter (6) COVID: Impression: Patient had symptom onset 05/05. She continues to have some productive cough. Likely some chronic sinusitis. Exacerbated by COVID infection. No recorded fevers here. She has remained on room air. - Not on steroids by guideline as she is on room air - Continue supportive management with antitussives, scheduling guaifenesin for the next 2 days - Continue as needed Flonase - Tyenol as below (7) Lactate blood increase: Impression: Resolved Secondary to tissue damage and prolonged downtime as above. Has since resolved. (8) Leukocytosis: Impression: Resolved Had leukocytosis, likely in the setting of hypovolemia and decreased p.o. intake. This resolved on 05/10. She has demonstrated no localizing signs of infection other than her COVID symptoms. Chest x-ray was unremarkable on admission. She had 1 dose of IV ceftriaxone in the ED on arrival. Qualifiers: Leukocytosis type: bandemia Qualified Code(s): D72.825 - Bandemia (9) Hypokalemia: Impression: Resolved, K 3.5 as of 05/13. No longer trending Likely had hypokalemia in the setting of her prolonged period of decreased p.o. intake. Her renal functions remained stable. No significant GI losses. (10) Acute urinary retention: Impression: Ongoing, Sidhu in place Patient developed acute urinary retention during this hospitalization on day 1. She had greater than 1 L in her bladder on bedside bladder scan. Sidhu was placed with 1.3 L out. She failed trial of void on 05/12. - Plan for discharge with Sidhu in place. - Encourage mobility as below - Follow-up with urology - Monitor for symptoms of cystitis, suprapubic pain, change in output (11) Hypertension: Impression: Stable on home lisinopril 40 mg daily Qualifiers: Hypertension type: unspecified Qualified Code(s): I10 - Essential (primary) hypertension (12) Hyperlipemia: Impression: Stable on home statin 40 mg nightly Qualifiers: Hyperlipidemia type: unspecified Qualified Code(s): E78.5 - Hyperlipidemia, unspecified (13) Diabetes: Impression: Stable, has required minimal sliding scale insulin History of diabetes. Normally well-controlled with metformin and sitagliptin. A1c 6.3 this admission. - Will resume her metformin - Continue carb controlled diet - Continue correctional insulin Qualifiers: Diabetes mellitus complication status: without complication Diabetes mellitus senior care insulin use: without truck terminal manager use Diabetes mellitus type: t ype 2 Qualified Code(s): E11.9 - Type 2 diabetes mellitus without complications
[2025-05-14] MEDS: MULTIVITAMIN W/MINERALS TABLET PO SCH (11:53)
[2025-05-14] MEDS: ACETAMINOPHEN 500 MG TABLET PO SCH (11:53)
[2025-05-14] MEDS: MAGNESIUM OXIDE 400 MG TABLET PO SCH (11:53)
[2025-05-14] MEDS: guaiFENesin 100 MG/5 ML UDC PO SCH (14:06)
[2025-05-14] MEDS: DOCUSATE SODIUM 250 MG CAPSULE PO SCH (21:02)
[2025-05-14] MEDS: SENNA 8.6 MG TABLET PO SCH (21:03)
[2025-05-15 05:23] LABS: BUN - BLOOD UREA NITROGEN 12.0 mg/dL (6-20); CARBON DIOXIDE - CO2 29.0 mmol/L (21-32); CREATININE 0.6 mg/dL (0.6-1.3); GFR - MDRD 97.0 (>89); PHOSPHORUS 4.3 mg/dL (2.5-5.0)
--- NOTE | 2025-05-15 08:36 | PROVIDER PROGRESS NOTE ---
Subjective Prog Note Date Prog Note Date: 05/15/25 Prog Note Time: 08:34 Subjective Subjective: No acute events overnight. Patient is doing reasonably well this morning. Her labs have normalized. She has a low albumin which is consistent with her poor nutritional state. Electrolytes otherwise have remained normal. Magnesium is being replaced orally. Patient hopeful to work with PT today. Hopeful to get stronger so that she can get home with home health. She has a persistent cough, more productive since starting on guaifenesin. Remains afebrile. Vital signs remained stable. Current Medications Current Medications Current Medications: Current Medications Generic Name Dose Route Start Last Admin Trade Name Freq PRN Reason Stop Dose Admin Acetaminophen 1,000 mg 05/14/25 12:00 05/15/25 05:29 Acetaminophen 500 Mg Tablet PO 1,000 mg Q8H ABBEY Administration Hydrocodone Bitart/Acetaminophen 1 tab 05/10/25 00:31 Hydrocod/Acetam 5/325 Mg Tablet PO Q4HR PRN Pain 5 to 7 Atorvastatin Calcium 20 mg 05/10/25 21:00 05/14/25 21:02 Atorvastatin 10 Mg Tablet PO 20 mg QPM ABBEY Administration Docusate Sodium 250 - 500 mg 05/14/25 21:00 05/14/25 21:02 Docusate Sodium 250 Mg Capsule PO Not Given DAILY ABBEY Enoxaparin Sodium 40 mg 05/12/25 09:00 05/14/25 08:56 Enoxaparin 40 Mg/0.4 Ml Syringe SUBQ 40 mg DAILY ABBEY Administration Fluticasone Propionate 1 sprays 05/11/25 09:00 05/14/25 09:01 Fluticasone Nasal [place] JENNIFER 1 spray DAILY ABBEY Administration Guaifenesin 200 mg 05/14/25 14:00 05/15/25 05:30 Guaifenesin 100 Mg/5 Ml Udc PO 05/16/25 13:59 200 mg TID ABBEY Administration Ibuprofen 600 mg 05/10/25 21:00 05/14/25 21:01 Ibuprofen 600 Mg Tablet PO 600 mg BID ABBEY Administration Insulin Human Lispro 1 - 9 unit 05/10/25 08:00 05/14/25 21:02 Insulin Lispro 300 Unit/3 Ml Pen SUBQ 3 unit 0800,1200,1700,2100 ABBEY Administration Protocol Lisinopril 40 mg 05/11/25 09:00 05/14/25 08:57 Lisinopril 20 Mg Tablet PO 40 mg DAILY ABBEY Administration Magnesium Oxide 400 mg 05/14/25 12:00 05/14/25 11:53 Magnesium Oxide 400 Mg Tablet PO 400 mg DAILYWM ABBEY Administration Metformin HCl 1,000 mg 05/14/25 21:00 05/14/25 21:00 Metformin 500 Mg Tablet PO 1,000 mg BID ABBEY Administration Multivitamins/Minerals 1 tab 05/14/25 11:00 05/14/25 11:53 Multivitamin W/Minerals Tablet PO 1 tab DAILYWM ABBEY Administration Nystatin 1 applic 05/11/25 21:00 05/14/25 21:03 Nystatin Powder 15 Gm TOP 1 applic BID ABBEY Administration Ondansetron HCl 4 mg 05/10/25 00:31 Ondansetron Odt 4 Mg Tablet TL Q6HR PRN Nausea / Vomiting Oxycodone HCl 10 mg 05/10/25 00:31 Oxycodone 5 Mg Tablet PO Q4HR PRN Pain 8 to 10 Polyethylene Glycol 17 gm 05/14/25 21:00 05/14/25 21:03 Polyethylene Glycol 3350 17 Gm Packet PO Not Given DAILY [facility] Senna 8.6 - 17.2 mg 05/14/25 21:00 05/14/25 21:03 Senna 8.6 Mg Tablet PO Not Given DAILY [facility] Sodium Chloride 10 ml 05/10/25 00:31 Sodium Chloride Flush 0.9% 10 Ml Syringe IVP PRN PRN NEEDED PER PROVIDER ORDERS Sodium Chloride 10 ml 05/10/25 01:00 05/14/25 23:52 Sodium Chloride Flush 0.9% 10 Ml Syringe IVP Not Given 0100,0900,1700 ABBEY Throat Lozenges 1 lozenge 05/11/25 14:04 05/13/25 09:08 Benzocaine/Menthol Lozenge MM 1 lozenge Q2HR PRN Administration Throat pain Objective Vital Signs/Intake & Output Reviewed Vital Signs: Yes Vital Signs: Vital Signs x48h Temp Resp BP Pulse Ox 05/15/25 07:49 36.5 C 18 156/57 H 95 Intake & Output: Intake & Output 05/12/25 05/13/25 05/14/25 05/15/25 23:59 23:59 23:59 23:59 Intake Total 760 / 760 1340 / 1340 1570 / 1570 600 / 600 Output Total 1900 / 1900 3625 / 3625 2100 / 2100 1100 / 1100 Balance -1140 / -1140 -2285 / -2285 -530 / -530 -500 / -500 Objective Comments/Other: GEN: No acute distress HEENT: NC/AT, normal appearance of external ears and nose. Hard of hearing at baseline. Cardiac: Regular rate and rhythm, no murmurs. Euvolemic generally. Pulm: Bilateral rhonchi. No rales appreciated. Productive cough. No wheezing. Normal effort on room air. Abdomen: Soft, nontender, nondistended. No rebound or guarding Extremities: Moves all 4 extremities equally. Normal tone. Knees without any effusion or surrounding erythema. Neuro: Face symmetric, CN II through XII intact grossly. No focal neurologic deficits. Psych: Mood euthymic with congruent affect. Cooperative. Lab Results 05/14/25 05:04 05/15/25 04:38 Other Labs: Lab Results x24hrs 05/15/25 05/15/25 05/14/25 Range/Units 07:56 04:38 20:39 Sodium 140 (135-145) mmol/L Potassium 3.6 (3.5-4.5) mmol/L Chloride 106 (101-111) mmol/L Carbon Dioxide 29 (21-32) mmol/L Anion Gap 5.0 L (6-13) BUN 12 (6-20) mg/dL Creatinine 0.6 (0.6-1.3) mg/dL Estimated GFR (MDRD) 97 (>89) Glucose 118 H (74-104) mg/dL POC Whole Bld Glucose 117 187 (70-100) mg/dL Calcium 8.5 (8.5-10.3) mg/dL Phosphorus 4.3 (2.5-5.0) mg/dL Albumin 2.8 L (3.2-5.5) g/dL 05/14/25 05/14/25 Range/Units 17:02 11:42 Sodium (135-145) mmol/L Potassium (3.5-4.5) mmol/L Chloride (101-111) mmol/L Carbon Dioxide (21-32) mmol/L Anion Gap (6-13) BUN (6-20) mg/dL Creatinine (0.6-1.3) mg/dL Estimated GFR (MDRD) (>89) Glucose (74-104) mg/dL POC Whole Bld Glucose 148 189 (70-100) mg/dL Calcium (8.5-10.3) mg/dL Phosphorus (2.5-5.0) mg/dL Albumin (3.2-5.5) g/dL Diagnostic Imaging Diagnostic Imaging Results: positive Final report reviewed Diagnostic Imaging Comments: Chest x-ray from 05/09 reveals no acute cardiopulmonary process. Assessment/Plan Problem List (1) Pressure ulcer: Impression: Stable, needing wound care Patient has a stage II sacral pressure ulcer. Denies any pain from this. Debrided surgically on 05/12. - Continue repositioning for offloading, patient currently needing help with this as below. - Continue daily dressing changes - Patient will need ongoing wound care, Home health orders in place. Qualifiers: Pressure injury location: sacral region Pressure injury stage: stage 2 Qualified Code(s): L89.152 - Pressure ulcer of sacral region, stage 2 (2) General weakness: (3) Arthritis: (4) Fall: Impression: Patient worked with PT on 05/15. Appreciate their recommendations. She continues to be very anxious with mobility. Not meeting criteria for safe discharge back to home per PTs evaluation. Patient presented following ground-level fall several days prior to admission. She lives at home alone. Her pain is limited predominantly by her polyarthritis which she has chronically. She admits that she is quite immobile at baseline but she does normally slide out of her chair several times a year and has to contact EMS to help her get back up. PT is seeing her, and did say that she had good functional capacity, but was limited by her motivation. They were recommending SNF. Unfortunately she has been unable to discharge to SNF for financial reasons. She has no focal weakness on my exam. - Continuing PT. PT continues to recommend DC to SNF, limited by patient's financial ability. - Continue scheduled Tylenol and ibuprofen for polyarthropathy, adding topical diclofenac. - Mobilize to the chair for meals - Continue to encourage her safe mobility around the room, Sidhu management as below Qualifiers: Encounter type: initial encounter Qualified Code(s): W19.XXXA - Unspecified fall, initial encounter (5) COVID: Impression: Patient had symptom onset 05/05. She continues to have some productive cough. Likely some chronic sinusitis. Exacerbated by COVID infection. No recorded fevers here. She has remained on room air. - Not on steroids by guideline as she is on room air - Continue supportive management with antitussives, scheduling Guaifenesin through 05/16 - Continue as needed Flonase - Tyenol as above (6) Acute urinary retention: Impression: Ongoing, Sidhu in place Patient developed acute urinary retention during this hospitalization on day 1. She had greater than 1 L in her bladder on bedside bladder scan. Sidhu was placed with 1.3 L out. She failed trial of void on 05/12. - Given her prolonged hospital stay, we will attempt a trial of void again 05/16 - Encourage mobility as above - If fails trial of void again, we will have to discharge with indwelling catheter which is not ideal (7) Rhabdomyolysis: Impression: Resolved. Initially presenting with posttraumatic rhabdomyolysis. Patient was down for several days prior to admission. Her CPK downtrended over the first days of her hospitalization from 2600 down to 522 when it was last measured on 05/12. She is orally repleted and fluids. IV fluids stopped 05/12 - Continue strict I/O, encourage p.o. intake - Kidney function remained stable so far, no longer trending creatinine Qualifiers: Rhabdomyolysis type: non-traumatic Qualified Code(s): M62.82 - Rhabdomyolysis (8) Lactate blood increase: Impression: Resolved Secondary to tissue damage and prolonged downtime as above. Has since resolved. (9) Leukocytosis: Impression: Resolved Had leukocytosis, likely in the setting of hypovolemia and decreased p.o. intake. This resolved on 05/10. She has demonstrated no localizing signs of infection other than her COVID symptoms. Chest x-ray was unremarkable on admission. She had 1 dose of IV ceftriaxone in the ED on arrival. Qualifiers: Leukocytosis type: bandemia Qualified Code(s): D72.825 - Bandemia (10) Hypokalemia: Impression: Resolved, K 3.5 as of 05/13. No longer trending Likely had hypokalemia in the setting of her prolonged period of decreased p.o. intake. Her renal functions remained stable. No significant GI losses. (11) Hypertension: Impression: Stable on home lisinopril 40 mg daily Qualifiers: Hypertension type: unspecified Qualified Code(s): I10 - Essential (primary) hypertension (12) Hyperlipemia: Impression: Stable on home statin 40 mg nightly Qualifiers: Hyperlipidemia type: unspecified Qualified Code(s): E78.5 - Hyperlipidemia, unspecified (13) Diabetes: Impression: Stable, has required minimal sliding scale insulin History of diabetes. Normally well-controlled with metformin and sitagliptin. A1c 6.3 this admission. - Will resume her metformin - Continue carb controlled diet - Continue correctional insulin Qualifiers: Diabetes mellitus complication status: without complication Diabetes mellitus fci insulin use: without fci use Diabetes mellitus type: t ype 2 Qualified Code(s): E11.9 - Type 2 diabetes mellitus without complications
[2025-05-15] MEDS ORDERED: DICLOFENAC SODIUM 1% GEL 50 GM TUBE TOP PRN (17:22)
[2025-05-15] MEDS ORDERED: DOCUSATE SODIUM 250 MG CAPSULE PO PRN (17:24)
[2025-05-15] MEDS: HYDROcod/ACETAM 5/325 MG TABLET PO PRN (18:24)
[2025-05-16] MEDS ORDERED: hydrALAZINE INJ 20 MG/ML VIAL IVP PRN (01:07)
[2025-05-17 01:10] VITALS: O2SAT 93
[2025-05-17 14:54] VITALS: BP 158/56; TEMP 97.7
== END 2025-05-17 14:45 | disposition home health service (06) | DRG 557 ==
LOC: ED 20:13 → MS2 20:13 → SUATTDRO 05-10 15:27
PROVIDERS: ADMIT Family Medicine; ATTEND Student in an Organized Health Care Education/Training Program
DX: W19.XXXA Unspecified fall, initial encounter; U07.1 COVID-19; Z79.84 Long term (current) use of oral hypoglycemic drugs; Z79.899 Other long term (current) drug therapy; D72.829 Elevated white blood cell count, unspecified; J01.90 Acute sinusitis, unspecified; Z60.2 Problems related to living alone; E87.6 Hypokalemia; D72.825 Bandemia; R32 Unspecified urinary incontinence; M62.82 Rhabdomyolysis; E87.20 Acidosis, unspecified; R33.9 Retention of urine, unspecified; H91.90 Unspecified hearing loss, unspecified ear; M47.816 Spondylosis without myelopathy or radiculopathy, lumbar region; E78.5 Hyperlipidemia, unspecified; E11.9 Type 2 diabetes mellitus without complications; R29.6 Repeated falls; M15.9 Polyosteoarthritis, unspecified; J01.20 Acute ethmoidal sinusitis, unspecified; R77.0 Abnormality of albumin; L89.152 Pressure ulcer of sacral region, stage 2; I10 Essential (primary) hypertension

== ENCOUNTER 2025-05-26 14:03 | Inpatient (IN) ==
--- NOTE | 2025-05-25 16:43 | HISTORY & PHYSICAL EXAMINATION ---
Chief Complaint Chief Complaint Chief Complaint: Weakness History of Present Illness Admitted From Admitted From:: Home History Obtained From Records Reviewed: EMR History obtained from: Patient Exam Limitations: None History of Present Illness HPI Comment/Other: Patient is a pleasant 74-year-old with a history of diabetes mellitus, polyarthritis, hypertension and hyperlipidemia who presents with ongoing and persistent weakness resulting in multiple falls at home. Of note, patient was r ecently here and admitted from 05/09 to 05/15 after a fall which left her on the floor unable to get up for about 4 days. She had some mild rhabdomyolysis, which resolved quickly. At that time, she presented with a stage II sacral ulcer. She was discharged home with home health, as she was unable to afford SNF placement [id number]. She returns due to persistent falls and weakness at home. She states that she has fell every day since being home. On admission date, on 05/22, she states that she was unable to stand from her toilet due to continued weakness. In the ER, she was vitally stablenormotensive, heart rate between 50-60, afebrile, saturating 94 to 97% on room air, with a normal respiratory rate of 16. Lab work was reviewedshe has a slight leukocytosis of 13.9, hemoglobin is stable around 10-11. Her creatinine is within normal limits. Her magnesium was low at 1.6. During her last stay, she had some urinary retention, was discharged home with a Sidhu. Urinalysis was completed by the emergency room, and urine culture is growing Pseudomonas. She was started on oral ciprofloxacin. Patient exhibits continued weakness, which is lower than her baseline mobility. She also has a large sacral wound, which will require continued monitoring and localized wound care. Meds/Allgy Home Medications Ambulatory Orders Medication Instructions Recorded Confirmed lisinopril 40 mg tablet 40 mg PO DAILY 05/09/2505/02 metformin 1,000 mg tablet 1,000 mg PO BID 05/09/25 simvastatin 40 mg tablet 40 mg PO QPM 05/09/25 sitagliptin phosphate 25 mg tablet 25 mg PO DAILY 04/2505/24/25 (Januvia) arnica 1.329 mg sublingual DAILY 05/24/25 aspirin 81 mg tablet 81 mg PO DAILY 05/23/2505/02 cinnamon bark 500 mg capsule 500 mg PO BID 05/23/25 leann (Zingiber officinalis) 550 550 mg PO BID 05/24/25 mg capsule ibuprofen 200 mg tablet (Advil) 200 mg PO Q8H 05/23/25 05/24/25 [id number] ac 400 1 tab PO DAILY 05/23/2505/02 mcg-calcium carb 500 mg-vit K1 20 mcg tablet (Women's 50 Plus Multivitamin) turmeric 400 mg capsule 2,250 mg PO DAILY 05/23/25 1 Allergies Allergies Allergy/AdvReac Type Severity Reaction Status Date / Time Penicillins AdvReac Severe Hives Verified 05/22/25 20:46 Sulfa (Sulfonamide AdvReac Severe Hives Verified 05/22/25 20:46 Antibiotics) PFSH Active Problems All Active Problems (Updated 05/24/25 @ 14:49 by John Dickinson MD) Severe muscle deconditioning (Acute) Urinary tract infection (Acute) General weakness (Acute) Acute urinary retention (Acute) Pressure ulcer (Acute) Exposure to COVID-19 virus (Acute) Hyperlipemia (Chronic) Hypertension (Chronic) Diabetes (Chronic) Medical History Medical History Arthritis Social History Social History Smoking Status: Never smoker Second hand tobacco smoke exposure: No Do you dip or chew tobacco?: No Do you vape?: No Level: Independent Do you feel safe in your home environment?: No (unable to take care of self) History of physical, verbal, emotional, or financial abuse?: No POLST Patient has POLST: No Review of Systems Constitutional Reports: Malaise and Weakness; Denies: Fever, Chills or Poor appetite Eyes Reports: Diplopia; Denies: Pain, Irritation or Blurry vision Ears, nose, mouth, and throat Denies: Ear pain, Hearing loss, Tinnitus, Nose bleeds or Nasal discharge Cardiovascular Reports: edema; Denies: Irregular heart rate, chest pain, palpitations, Syncope or shortness of breath with exertion Respiratory Denies: Shortness of breath, Cough or Sputum production Gastrointestinal Denies: Abdominal pain, Abdominal distention, Nausea, Vomiting, Heartburn, Diarrhea or Constipation Genitourinary Reports: Urinary incontinence and Difficulty voiding; Denies: Painful urination, Urinary frequency or Urinary urgency Musculoskeletal Reports: Back pain, Extremity pain, Extremity swelling, Joint pain, Limited range of motion, Stiffness, Muscle pain and Muscle aches Integumentary/Breast Reports: Rash and Other (Sacral wound ) Neurological Reports: General weakness; Denies: Headache, Weakness in extremities, Numbness in extremities, Abnormal gait or Dizziness Psychiatric Denies: Depression, Anxiety, Mood swings or Panic attacks Hematologic/Lymphatic Denies: Anemia, Easy bruising or Easy bleeding Allergic/Immunologic Denies: Hives, Tongue swelling or Facial swelling Prior Level of Functionality: Lives alone. Unable to care for herself. Exam Exam Vital Signs: Vital Signs x48h Temp Pulse Resp BP Pulse Ox 05/25/25 16:09 98.2 F 75 16 103/61 97 Constitutional normal general appearance, no apparent distress, abnormal body habitus (overweight) and limitations noted HENMT normocephalic, head/scalp atraumatic and hearing grossly normal bilaterally Eyes PERRL, EOMs intact bilaterally and conjunctivae normal Neck/C-Spine visual inspection normal, trachea midline and cervical spine nontender Chest inspection of chest normal Respiratory breath sounds equal bilaterally, normal respiratory effort, clear to auscultation bilaterally, no wheezes, no rales and no retractions Cardiovascular normal heart rate noted, regular rhythm noted, no gallop, no rub and no murmur Gastrointestinal abdomen normal to inspection, abdomen soft to palpation, nontender to palpation and normoactive bowel sounds Genitourinary no CVA tenderness and bladder normal to palpation Extremities normal to inspection, normal to palpation and no tenderness Limited range of motion due to pain in all joints including bilateral shoulders, knees, hips. Neurology no movement abnormality noted and no focal motor deficit noted Psychiatry mental status grossly normal, oriented x3, thought process normal, cooperative and affect normal Skin skin color normal Large sacral ulcer measuring 10 to 12 cm with eschar formation, granulation tissue around borders. Surrounding erythema noted. Conclusion/Plan Problem List (1) Severe muscle deconditioning: Plan: Patient presents after falling daily at home, and having lift assist, as well as EMS services needing to help her daily. Prior to onset of this weakness following a COVID-19 infection, patient was living independently. She does have significant polyarthritis which is the underlying reason for her chronic debility. Patient will need continued physical therapy and Occupational Therapy to maintain strength. (2) Pressure ulcer: Plan: Sacral pressure ulcer, present on admission. Patient denies pain. Granulation tissue formation noted. General surgery consulted - wound was evaluated together. There is a intact eschar which was left in place because the risk of infection from debridement may outweigh the benefits. Per surgery reccomends - do not have extensive wound care capabilities such as an air bed (to prevent worsening of this wound) or a bathtub that will allow treatment of this wound. Surgery did redress the wound with some Betadine soaked gauze and a dressing. Wound culture obtained. Patient was counselled to reposition herself frequently to prevent worsening of wound. Qualifiers: Pressure injury location: sacral region Pressure injury stage: stage 2 Qualified Code(s): L89.152 - Pressure ulcer of sacral region, stage 2 (3) Leukocytosis: Plan: Likely secondary to Pseudomonas urinary tract infection. This is likely attributed to new indwelling Sidhu. Large sacral ulcer may also be contributing. Switch to oral levofloxacin and doxycycline for appropriate coverage. Qualifiers: Leukocytosis type: bandemia Qualified Code(s): D72.825 - Bandemia (4) Acute urinary retention: Plan: Patient developed acute urinary retention during her last hospital stay. Failed trial of void. Sidhu catheter reinserted; will discharge with Sidhu in place, and will need follow up with Urology. (5) Hypertension: Plan: Continue home lisinopril 40mg PO daily. Qualifiers: Hypertension type: unspecified Qualified Code(s): I10 - Essential (primary) hypertension (6) Hyperlipemia: Plan: Continue home simvastatin 40mg nightly. Qualifiers: Hyperlipidemia type: unspecified Qualified Code(s): E78.5 - Hyperlipidemia, unspecified (7) Diabetes: Plan: HgbA1c is 6.3 this admission. She is well-controlled on her home diabetes regimen of metformin and sitagliptin, which she states she has been taking for over 15 years. BG is mildly elevated here 160-190s. Continue metformin. Qualifiers: Diabetes mellitus type: type 2 Diabetes mellitus joint terminal attack controller insulin use: without correction use Diabetes mellitus complication status: without complication Qualified Code(s): E11.9 - Type 2 diabetes mellitus without complications Lab Results Lab results reviewed: Yes Diagnostic Imaging Results Diagnostic Imaging Results: positive Final report reviewed EKG Results EKG Interpreted Independently: Yes
[2025-05-25] MEDS: SODIUM CHLORIDE FLUSH 0.9% 10 ML SYRINGE IVP SCH (18:06)
[2025-05-25] MEDS: ACETAMINOPHEN 325 MG TABLET PO PRN (18:07)
[2025-05-25] MEDS: DICLOFENAC SODIUM 1% GEL 50 GM TUBE TOP PRN (21:49)
[2025-05-25] MEDS: ATORVASTATIN 10 MG TABLET PO SCH (21:49)
[2025-05-25] MEDS: DOXYCYCLINE 100 MG TABLET PO SCH (21:49)
--- NOTE | 2025-05-26 07:39 | PROVIDER PROGRESS NOTE ---
Subjective Subjective Subjective: This morning, patient has been feeling unwell. She endorses some nausea, fevers, and chills. She is eager to work with physical therapy. Current Medications Current Medications Current Medications: Current Medications Generic Name Dose Route Start Last Admin Trade Name Freq PRN Reason Stop Dose Admin Acetaminophen 650 mg 05/25/25 16:50 05/26/25 01:03 Acetaminophen 325 Mg Tablet PO 650 mg Q4HR PRN Administration Pain 1 to 4, or Fever Aspirin 81 mg 05/26/25 09:00 Aspirin Chew 81 Mg Tablet PO DAILY ABBEY Atorvastatin Calcium 20 mg 05/25/25 21:00 05/25/25 21:49 Atorvastatin 10 Mg Tablet PO 20 mg QPM ABBEY Administration Diclofenac Sodium 2 gm 05/25/25 18:50 05/25/25 21:49 Diclofenac Sodium 1% Gel 50 Gm Tube TOP 2 gm QID PRN Administration Mild Pain (Level 1-3) Doxycycline Hyclate 100 mg 05/25/25 21:00 05/25/25 21:49 Doxycycline 100 Mg Tablet PO 100 mg BID ABBEY Administration Enoxaparin Sodium 40 mg 05/26/25 09:00 Enoxaparin 40 Mg/0.4 Ml Syringe SUBQ DAILY ABBEY Levofloxacin 750 mg 05/26/25 09:00 Levofloxacin 750 Mg Tablet PO DAILY [facility] Lisinopril 40 mg 05/26/25 09:00 Lisinopril 20 Mg Tablet PO DAILY [facility] Metformin HCl 1,000 mg 05/25/25 17:00 05/25/25 18:07 Metformin 500 Mg Tablet PO 1,000 mg BIDWM ABBEY Administration Ondansetron HCl 4 mg 05/25/25 16:50 Ondansetron Odt 4 Mg Tablet TL Q6HR PRN Nausea / Vomiting Ondansetron HCl 4 mg 05/25/25 16:50 Ondansetron 4 Mg/2 Ml Vial IVP Q6HR PRN Nausea / Vomiting Sodium Chloride 10 ml 05/25/25 16:50 Sodium Chloride Flush 0.9% 10 Ml Syringe IVP PRN PRN NEEDED PER PROVIDER ORDERS Sodium Chloride 10 ml 05/25/25 17:00 05/26/25 01:00 Sodium Chloride Flush 0.9% 10 Ml Syringe IVP 10 ml 0100,0900,1700 ABBEY Administration Objective Vital Signs/Intake & Output Reviewed Vital Signs: Yes Vital Signs: Vital Signs x48h Temp Pulse Resp BP BP Pulse Ox 05/26/25 04:47 97.5 F L 55 L 20 119/42 L 98 05/26/25 00:30 100.9 F H 05/25/25 23:40 74 22 157/48 H 93 Intake & Output: Intake & Output 05/23/25 05/24/25 05/25/25 05/26/25 23:59 23:59 23:59 23:59 Intake Total 500 / 500 Output Total 450 / 450 675 / 675 Balance 50 / 50 -675 / -675 Weight (kg) 117.5 kg Objective General Appearance: positive No acute distress and Alert Eyes Bilateral: negative Normal inspection (Scant yellow discharge along inferior palpebras, without erythema or inflammation) ENT: negative ENT inspection nml (Small amounts of nasal serous drainage, noted in tissues at bedside ) Respiratory: positive No respiratory distress and Breath sounds nml; negative Wheezes, Rales or Rhonchi Cardiovascular: positive Systolic murmur Peripheral Pulses: 2+: Radial (R) and 2+: Radial (L) Abdomen: positive Nml bowel sounds and No distention Back: positive Other (10 cm sacral ulcer with granulation tissue. No active bleeding, no purulence noted. Some serosanguinous drainage.) Skin: positive Warm, Dry and Other (10 cm sacral ulcer with granulation tissue. No active bleeding, no purulence noted.) Extremities: positive Pedal edema; negative Non-tender (Bilateral shoulder, leg tenderness to palpation from chronic arthritis) or Full ROM (Limited BUE/BLE active ROM 2/2 arthritis) Neurologic/Psychiatric: positive Oriented x3 and Mood/affect nml Lab Results 05/26/25 08:58 05/26/25 08:58 Other Labs: Lab Results x24hrs 05/13/25 05/13/25 05/13/25 Range/Units 11:16 08:31 05:09 WBC 9.7 (4.8-10.8) x10^3/uL RBC 3.64 L (4.20-5.40) 10^6/uL Hgb 10.3 L (12.0-16.0) g/dL Hct 32.1 L (37.0-47.0) % MCV 88.2 (81.0-99.0) fL MCH 28.3 (27.0-31.0) pg MCHC 32.1 (32.0-36.0) g/dL RDW 13.9 (12.0-15.0) % Plt Count 219 (130-450) 10^3/uL MPV 10.9 H (7.9-10.8) fL Sodium 137 (135-145) mmol/L Potassium 3.5 (3.5-4.5) mmol/L Chloride 105 (101-111) mmol/L Carbon Dioxide 27 (21-32) mmol/L Anion Gap 5.0 L (6-13) BUN 13 (6-20) mg/dL Creatinine 0.6 (0.6-1.3) mg/dL Estimated GFR (MDRD) 97 (>89) Glucose 142 H (74-104) mg/dL POC Whole Bld Glucose 188 146 (70-100) mg/dL Calcium 8.6 (8.5-10.3) mg/dL Magnesium 1.7 (1.7-2.3) mg/dL 05/12/25 05/12/25 Range/Units 20:33 16:55 WBC (4.8-10.8) x10^3/uL RBC (4.20-5.40) 10^6/uL Hgb (12.0-16.0) g/dL Hct (37.0-47.0) % MCV (81.0-99.0) fL MCH (27.0-31.0) pg MCHC (32.0-36.0) g/dL RDW (12.0-15.0) % Plt Count (130-450) 10^3/uL MPV (7.9-10.8) fL Sodium (135-145) mmol/L Potassium (3.5-4.5) mmol/L Chloride (101-111) mmol/L Carbon Dioxide (21-32) mmol/L Anion Gap (6-13) BUN (6-20) mg/dL Creatinine (0.6-1.3) mg/dL Estimated GFR (MDRD) (>89) Glucose (74-104) mg/dL POC Whole Bld Glucose 157 130 (70-100) mg/dL Calcium (8.5-10.3) mg/dL Magnesium (1.7-2.3) mg/dL Diagnostic Imaging Diagnostic Imaging Results: positive Final report reviewed Assessment/Plan Problem List (1) Severe muscle deconditioning: Impression: Patient presents after falling daily at home, and having lift assist, as well as EMS services needing to help her daily. Prior to onset of this weakness following a COVID-19 infection, patient was living independently. Patient will need continued physical therapy and Occupational Therapy to maintain strength. IPR is the likely disposition. (2) Pressure ulcer: Impression: Stage 2 sacral pressure ulcer, present on admission. Patient denies pain. Granulation tissue formation noted. Will treat conservatively with wet to dry dressing. General surgery was consulted - no debridement needed at this time, continue wet-to-dry dressing. Keep wound clean, promote offloading. Patient was counselled to reposition herself frequently to prevent worsening of wound. Qualifiers: Pressure injury location: sacral region Pressure injury stage: stage 2 Qualified Code(s): L89.152 - Pressure ulcer of sacral region, stage 2 (3) Leukocytosis: Impression: Likely secondary to Pseudomonas urinary tract infection. This is likely attributed to new indwelling Sidhu. Worsening leukocytosis, new fever - I have escalated from oral antibioitcs to cefepime. Qualifiers: Leukocytosis type: bandemia Qualified Code(s): D72.825 - Bandemia (4) Acute urinary retention: Impression: Patient developed acute urinary retention during her last hospital stay. Failed trial of void. Sidhu catheter reinserted; will discharge with Sidhu in place, and will need follow up with Urology. (5) Hypertension: Impression: Continue home lisinopril 40mg PO daily. Qualifiers: Hypertension type: unspecified Qualified Code(s): I10 - Essential (primary) hypertension (6) Hyperlipemia: Impression: Continue home simvastatin 40mg nightly. Qualifiers: Hyperlipidemia type: unspecified Qualified Code(s): E78.5 - Hyperlipidemia, unspecified (7) Diabetes: Impression: HgbA1c is 6.3 this admission. She is well-controlled on her home diabetes regimen of metformin and sitagliptin, which she states she has been taking for over 15 years. BG is mildly elevated here 160-190s. Continue metformin. Qualifiers: Diabetes mellitus complication status: without complication Diabetes mellitus mcfp insulin use: without mcfp use Diabetes mellitus type: t ype 2 Qualified Code(s): E11.9 - Type 2 diabetes mellitus without complications
[2025-05-26] MEDS: ASPIRIN CHEW 81 MG TABLET PO SCH (09:02)
[2025-05-26] MEDS: ONDANSETRON 4 MG/2 ML VIAL IVP PRN (09:02)
[2025-05-26] MEDS: ENOXAPARIN 40 MG/0.4 ML SYRINGE SUBQ SCH (09:07)
[2025-05-26 09:22] LABS: HCT - HEMATOCRIT 33.5 % (37.0-47.0); HGB - HEMOGLOBIN 10.5 g/dL (12.0-16.0); MEAN PLATELET VOLUME 10.1 fL (7.9-10.8); PLT - PLATELET COUNT 341.0 10^3/uL (130-450); RED CELL DISTRIBUTION WIDTH 14.0 % (12.0-15.0)
[2025-05-26 09:32] LABS: BUN - BLOOD UREA NITROGEN 16.0 mg/dL (6-20); CARBON DIOXIDE - CO2 27.0 mmol/L (21-32); CREATININE 0.7 mg/dL (0.6-1.3); GFR - MDRD 81.0 (>89)
[2025-05-26] MEDS: CEFEPIME 2 GM VIAL IVP SCH (10:19)
--- NOTE | 2025-05-26 15:54 | PT Plan of Care ---
PT Inpatient Plan of Care DIAGNOSIS Diagnosis: deconditioning, leukocytosis Referring Provider: Mark Mosher Patient Status: Inpatient CHIEF COMPLAINT Chief Complaint: LBP, B knee pain, gross weakness Onset of Chief Complaint: [employer]ORNEY on 05/22/25 MEDICAL/SURGICAL HISTORY Medical History Arthritis BALANCE/FUNCTIONAL RESULTS Sitting Balance: Good Standing Balance: Fair ASSESSMENT Assessment: The pt is a 74 y/o F who arrived to the ED on 05/22/25 after a GLF at home. Of note she had a recent hospitalization, 05/09/25-05/15/25, due to rhabdomyolysis and covid. During PT eval at that time she was Martin to CGA for all mobility, ,she DC'd home and has reported a GLF daily since returning home. She currently reports further weakness and limited mobility tolerance. PMH includes B MATT, please see chart for complete medical hx. The pt was received resting supine in bed and presented today with mildly decreased B UE and LE strength, decreased activity tolerance, and pain about her sacral wound. All of these combined with limited motivation to mobilize her body limited her tolerance during all functional mobility assessments/training. Requiring verbal encouragement to participate in mobility throughout this assessment. At this time recommend continued skilled PT intervention while in the acute setting and DC to SNF for further rehab once pt medically stable as she lives alone and is functioning below her baseline level of Ind. This plan was discussed with the pt and she was in agreement with this. At the end of the session the pt was sitting up in a recliner with call light in reach, chair alarm on, and all needs met agreeing to stay up in a chair for at least 30 minutes before calling for assist to get back to bed. RN and MD updated on pt's status and DC rec. PATIENT/FAMILY GOALS Patient/Family Goals: To get stronger and be able to go home GOALS Improve supine to sit to:: Modified Independent Improve sit to stand to:: Contact Guard Improve pivot transfer ability to:: Contact Guard Improve sit to supine to:: Modified Independent Improve gait ability to:: CGA Increase distance walked to (in feet):: 25 Improve Sitting Balance to:: Good PLAN Frequency: 1-2x/day Duration: Until goals are met DISCHARGE RECOMMENDATIONS Discharge Location: Residential Facility Support/Services Needed: With assist Other Discharge Equipment: pt owns all recommended DME Transport Needs at Discharge: [facility]
[2025-05-26] MEDS: ONDANSETRON ODT 4 MG TABLET TL PRN (22:08)
[2025-05-26] MEDS: SODIUM CHLORIDE FLUSH 0.9% 10 ML SYRINGE IVP PRN (22:20)
[2025-05-27 05:51] LABS: HCT - HEMATOCRIT 30.2 % (37.0-47.0); HGB - HEMOGLOBIN 9.6 g/dL (12.0-16.0); MEAN PLATELET VOLUME 10.2 fL (7.9-10.8); PLT - PLATELET COUNT 330.0 10^3/uL (130-450); RED CELL DISTRIBUTION WIDTH 14.0 % (12.0-15.0)
[2025-05-27 06:06] LABS: BUN - BLOOD UREA NITROGEN 26.0 mg/dL (6-20); CARBON DIOXIDE - CO2 25.0 mmol/L (21-32); CREATININE 0.8 mg/dL (0.6-1.3); GFR - MDRD 70.0 (>89)
--- NOTE | 2025-05-27 09:23 | PROVIDER PROGRESS NOTE ---
Subjective Subjective Subjective: Patient is a 74-year-old female with a history of polyarthritis, [id number] diabetes mellitus who presents after frequent falls, and inability to get back up after these falls. She was recently admitted for mild rhabdomyolysis, and discharged home with home health but returns again. Being treated for Pseudomonas UTI and possible cellulitis around sacral wound. This morning, patient has been feeling unwell. She endorses some nausea, fevers, and chills. She endorses ongoing pain; she has pain in her lower back where the ulcer is, and then pain in her hips, knees, etc. She states all these pains are keeping her from maintaining activity. Current Medications Current Medications Current Medications: Current Medications Generic Name Dose Route Start Last Admin Trade Name Freq PRN Reason Stop Dose Admin Acetaminophen 650 mg 05/25/25 16:50 05/26/25 15:03 Acetaminophen 325 Mg Tablet PO 650 mg Q4HR PRN Administration Pain 1 to 4, or Fever Ascorbic Acid 500 mg 05/27/25 10:00 Ascorbic Acid 500 Mg Tablet PO DAILY ABBEY Aspirin 81 mg 05/26/25 09:00 05/26/25 09:02 Aspirin Chew 81 Mg Tablet PO 81 mg DAILY ABBEY Administration Atorvastatin Calcium 20 mg 05/25/25 21:00 05/26/25 22:08 Atorvastatin 10 Mg Tablet PO 20 mg QPM ABBEY Administration Cefepime HCl 2 gm 05/26/25 10:00 05/26/25 22:09 Cefepime 2 Gm Vial IVP 2 gm BID ABBEY Administration Diclofenac Sodium 2 gm 05/25/25 18:50 05/25/25 21:49 Diclofenac Sodium 1% Gel 50 Gm Tube TOP 2 gm QID PRN Administration Mild Pain (Level 1-3) Enoxaparin Sodium 40 mg 05/26/25 09:00 05/26/25 09:07 Enoxaparin 40 Mg/0.4 Ml Syringe SUBQ 40 mg DAILY ABBEY Administration Lisinopril 40 mg 05/26/25 09:00 05/26/25 09:02 Lisinopril 20 Mg Tablet PO 40 mg DAILY ABBEY Administration Metformin HCl 1,000 mg 05/25/25 17:00 05/26/25 17:59 Metformin 500 Mg Tablet PO 1,000 mg BIDWM ABBEY Administration Multivitamins/Minerals 1 tab 05/27/25 10:00 Multivitamin W/Minerals Tablet PO DAILYWM [facility] Ondansetron HCl 4 mg 05/25/25 16:50 05/26/25 22:08 Ondansetron Odt 4 Mg Tablet TL 4 mg Q6HR PRN Administration Nausea / Vomiting Ondansetron HCl 4 mg 05/25/25 16:50 05/26/25 09:02 Ondansetron 4 Mg/2 Ml Vial IVP 4 mg Q6HR PRN Administration Nausea / Vomiting Sodium Chloride 10 ml 05/25/25 16:50 05/26/25 22:20 Sodium Chloride Flush 0.9% 10 Ml Syringe IVP 10 ml PRN PRN Administration NEEDED PER PROVIDER ORDERS Sodium Chloride 10 ml 05/25/25 17:00 05/27/25 07:49 Sodium Chloride Flush 0.9% 10 Ml Syringe IVP Not Given 0100,0900,1700 [facility] Objective Vital Signs/Intake & Output Reviewed Vital Signs: Yes Vital Signs: Vital Signs x48h Temp Pulse Resp BP Pulse Ox 05/27/25 01:40 98.1 F 66 20 135/44 H 93 Intake & Output: Intake & Output 05/24/25 05/25/25 05/26/25 05/27/25 23:59 23:59 23:59 23:59 Intake Total 500 / 500 180 / 180 Output Total 450 / 450 1075 / 1075 400 / 400 Balance 50 / 50 -895 / -895 -400 / -400 Weight (kg) 117.5 kg Objective General Appearance: positive No acute distress and Alert Eyes Bilateral: negative Normal inspection (Scant yellow discharge along inferior palpebras, without erythema or inflammation) ENT: negative ENT inspection nml (Small amounts of nasal serous drainage, noted in tissues at bedside ) Respiratory: positive No respiratory distress and Breath sounds nml; negative Wheezes, Rales or Rhonchi Cardiovascular: positive Systolic murmur Peripheral Pulses: 2+: Radial (R) and 2+: Radial (L) Abdomen: positive Nml bowel sounds and No distention Back: positive Other (10 cm sacral ulcer with granulation tissue. No active bleeding, no purulence noted. Some serosanguinous drainage.) Skin: positive Warm, Dry and Other (10 cm sacral ulcer with granulation tissue. No active bleeding, no purulence noted.) Extremities: positive Pedal edema; negative Non-tender (Bilateral shoulder, leg tenderness to palpation from chronic arthritis) or Full ROM (Limited BUE/BLE active ROM 2/2 arthritis) Neurologic/Psychiatric: positive Oriented x3 and Mood/affect nml Lab Results 05/27/25 05:40 05/27/25 05:40 Other Labs: Lab Results x24hrs 05/27/25 05/26/25 05/26/25 Range/Units 05:40 10:20 08:58 WBC 13.1 H 16.6 H (4.8-10.8) x10^3/uL RBC 3.46 L 3.74 L (4.20-5.40) 10^6/uL Hgb 9.6 L 10.5 L (12.0-16.0) g/dL Hct 30.2 L 33.5 L (37.0-47.0) % MCV 87.3 89.6 (81.0-99.0) fL MCH 27.7 28.1 (27.0-31.0) pg MCHC 31.8 L 31.3 L (32.0-36.0) g/dL RDW 14.0 14.0 (12.0-15.0) % Plt Count 330 341 (130-450) 10^3/uL MPV 10.2 10.1 (7.9-10.8) fL Sodium 131 L 132 L (135-145) mmol/L Potassium 3.7 3.5 (3.5-4.5) mmol/L Chloride 98 L 98 L (101-111) mmol/L Carbon Dioxide 25 27 (21-32) mmol/L Anion Gap 8.0 7.0 (6-13) BUN 26 H 16 (6-20) mg/dL Creatinine 0.8 0.7 (0.6-1.3) mg/dL Estimated GFR (MDRD) 70 L 81 L (>89) Glucose 126 H 128 H (74-104) mg/dL Calcium 8.8 9.0 (8.5-10.3) mg/dL Magnesium 1.5 L (1.7-2.3) mg/dL Nasal Screen MRSA (PCR) NEGATIVE (NEGATIVE) Diagnostic Imaging Diagnostic Imaging Results: positive Final report reviewed Assessment/Plan Problem List (1) Severe muscle deconditioning: Impression: Patient presents after falling daily at home, and having lift assist, as well as EMS services needing to help her daily. Prior to onset of this weakness following a COVID-19 infection, patient was living independently. Patient will need continued physical therapy and Occupational Therapy to maintain strength. (2) Pseudomonas urinary tract infection: (3) Acute urinary retention: (4) Leukocytosis: Impression: Patient developed acute urinary retention during her last hospital stay. Failed trial of void. Sidhu catheter reinserted; exchanged on admission in the ER. Will likely discharge with Sidhu in place, and will need follow up with Urology. Likely secondary to Pseudomonas urinary tract infection, due to new indwelling Sidhu. May be partially attributed to cellulitis around large sacral wound. On 05/26, patient had worsening leukocytosis, as well as a fever of 100.4. It appeared that she was failing oral antibiotics. Switched to cefepime. May require 1-2 more days of IV antibiotics. Qualifiers: Leukocytosis type: bandemia Qualified Code(s): D72.825 - Bandemia (5) Pressure ulcer: Impression: Stage II-III sacral pressure ulcer, present on admission. Patient denies pain. Granulation tissue formation noted. Will treat conservatively with wet to dry dressing. General surgery was consulted - no debridement needed at this time. Keep wound clean, promote offloading. Patient was counselled to reposition herself frequently to prevent worsening of wound. Qualifiers: Pressure injury location: sacral region Pressure injury stage: stage 2 Qualified Code(s): L89.152 - Pressure ulcer of sacral region, stage 2 (6) Hypertension: Impression: Continue home lisinopril 40mg PO daily. Qualifiers: Hypertension type: unspecified Qualified Code(s): I10 - Essential (primary) hypertension (7) Hyperlipemia: Impression: Continue home simvastatin 40mg nightly. Qualifiers: Hyperlipidemia type: unspecified Qualified Code(s): E78.5 - Hyperlipidemia, unspecified (8) Diabetes: Impression: HgbA1c is 6.3 this admission. She is well-controlled on her home diabetes regimen of metformin and sitagliptin, which she states she has been taking for over 15 years. BG is mildly elevated here 160-190s. Continue metformin. Qualifiers: Diabetes mellitus complication status: without complication Diabetes mellitus jail insulin use: without jail use Diabetes mellitus type: t ype 2 Qualified Code(s): E11.9 - Type 2 diabetes mellitus without complications
[2025-05-27] MEDS: MULTIVITAMIN W/MINERALS TABLET PO SCH (10:21)
[2025-05-27] MEDS: ASCORBIC ACID 500 MG TABLET PO SCH (10:21)
[2025-05-27] MEDS: MAGNESIUM OXIDE 400 MG TABLET PO SCH (11:56)
[2025-05-28 05:10] LABS: HCT - HEMATOCRIT 30.5 % (37.0-47.0); HGB - HEMOGLOBIN 9.6 g/dL (12.0-16.0); MEAN PLATELET VOLUME 10.5 fL (7.9-10.8); PLT - PLATELET COUNT 323.0 10^3/uL (130-450); RED CELL DISTRIBUTION WIDTH 14.1 % (12.0-15.0)
[2025-05-28 05:21] LABS: BUN - BLOOD UREA NITROGEN 28.0 mg/dL (6-20); CARBON DIOXIDE - CO2 26.0 mmol/L (21-32); CREATININE 0.7 mg/dL (0.6-1.3); GFR - MDRD 81.0 (>89)
[2025-05-28] MEDS ORDERED: DICLOFENAC SODIUM 1% GEL 50 GM TUBE TOP PRN (07:16)
--- NOTE | 2025-05-28 07:20 | PROVIDER PROGRESS NOTE ---
Subjective Prog Note Date Prog Note Date: 05/28/25 Prog Note Time: 07:17 Subjective Subjective: No acute events overnight. She has a persistent leukocytosis this morning. WBC 11.8 down from 13.1. Sodium 132. Creatinine 0.7. Magnesium 1.6. She is on supplementation. Recall urine cultures are growing Pseudomonas which is pansensitive. Reviewed her wound cultures which were superficial are growing E faecalis and Pseudomonas. Patient has not had blood cultures from this admission. No need to adjust treatment. Her superficial wound cultures should not be used to guide her antibiotics unless growing resistant bacteria. Otherwise improving. Continue cefepime. Patient reports that she has been having fevers. She is diaphoretic on my exam. No objective fever. Denies dysuria. Reports ongoing weakness. Current Medications Current Medications Current Medications: Current Medications Generic Name Dose Route Start Last Admin Trade Name Freq PRN Reason Stop Dose Admin Ascorbic Acid 500 mg 05/27/25 10:00 05/27/25 10:21 Ascorbic Acid 500 Mg Tablet PO 500 mg DAILY ABBEY Administration Aspirin 81 mg 05/26/25 09:00 05/27/25 09:44 Aspirin Chew 81 Mg Tablet PO 81 mg DAILY ABBEY Administration Atorvastatin Calcium 20 mg 05/25/25 21:00 05/27/25 21:23 Atorvastatin 10 Mg Tablet PO 20 mg QPM ABBEY Administration Cefepime HCl 2 gm 05/26/25 10:00 05/27/25 21:26 Cefepime 2 Gm Vial IVP 2 gm BID ABBEY Administration Enoxaparin Sodium 40 mg 05/26/25 09:00 05/27/25 09:43 Enoxaparin 40 Mg/0.4 Ml Syringe SUBQ 40 mg DAILY ABBEY Administration Lisinopril 40 mg 05/26/25 09:00 05/27/25 09:44 Lisinopril 20 Mg Tablet PO 40 mg DAILY ABBEY Administration Magnesium Oxide 400 mg 05/27/25 12:00 05/27/25 11:56 Magnesium Oxide 400 Mg Tablet PO 400 mg DAILYWM ABBEY Administration Metformin HCl 1,000 mg 05/25/25 17:00 05/27/25 18:04 Metformin 500 Mg Tablet PO 1,000 mg BIDWM ABBEY Administration Multivitamins/Minerals 1 tab 05/27/25 10:00 05/27/25 10:21 Multivitamin W/Minerals Tablet PO 1 tab DAILYWM ABBEY Administration Ondansetron HCl 4 mg 10/25/25 16:50 05/26/25 22:08 Ondansetron Odt 4 Mg Tablet TL 4 mg Q6HR PRN Administration Nausea / Vomiting Ondansetron HCl 4 mg 05/25/25 16:50 05/27/25 20:54 Ondansetron 4 Mg/2 Ml Vial IVP 4 mg Q6HR PRN Administration Nausea / Vomiting Polyethylene Glycol 17 gm 05/27/25 10:00 05/27/25 10:20 Polyethylene Glycol 3350 17 Gm Packet PO 17 gm DAILY ABBEY Administration Sodium Chloride 10 ml 05/25/25 16:50 05/26/25 22:20 Sodium Chloride Flush 0.9% 10 Ml Syringe IVP 10 ml PRN PRN Administration NEEDED PER PROVIDER ORDERS Sodium Chloride 10 ml 05/25/25 17:00 05/28/25 03:25 Sodium Chloride Flush 0.9% 10 Ml Syringe IVP 10 ml 0100,0900,1700 ABBEY Administration Objective Vital Signs/Intake & Output Vital Signs: Vital Signs x48h Temp Pulse Resp BP Pulse Ox 05/28/25 00:07 37.1 C 67 24 138/47 H 94 Intake & Output: Intake & Output 05/25/25 05/26/25 05/27/25 05/28/25 23:59 23:59 23:59 23:59 Intake Total 500 / 500 180 / 180 580 / 580 Output Total 450 / 450 1075 / 1075 1025 / 1025 500 / 500 Balance 50 / 50 -895 / -895 -445 / -445 -500 / -500 Weight (kg) 117.5 kg Objective Comments/Other: GEN: No acute distress, diaphoretic HEENT: NC/AT, normal appearance of external ears and nose. Hearing baseline. Cardiac: Regular rate and rhythm. Systolic ejection murmur left sternal border. 1+ bilateral pitting edema. Pulm: Lungs CTA bilaterally, no cough, no wheezes. Normal effort on room air. Abdomen: Soft, nontender, nondistended. No rebound or guarding Extremities: Moves all 4 extremities equally. Normal tone. Neuro: Face symmetric, CN II through XII intact grossly. No focal deficits. Gait exam deferred. Psych: Perseverant and ruminative. Mood euthymic. Lab Results 05/28/25 05:03 05/28/25 05:03 Other Labs: Lab Results x24hrs 05/28/25 Range/Units 05:03 WBC 11.8 H (4.8-10.8) x10^3/uL RBC 3.45 L (4.20-5.40) 10^6/uL Hgb 9.6 L (12.0-16.0) g/dL Hct 30.5 L (37.0-47.0) % MCV 88.4 (81.0-99.0) fL MCH 27.8 (27.0-31.0) pg MCHC 31.5 L (32.0-36.0) g/dL RDW 14.1 (12.0-15.0) % Plt Count 323 (130-450) 10^3/uL MPV 10.5 (7.9-10.8) fL Sodium 132 L (135-145) mmol/L Potassium 3.9 (3.5-4.5) mmol/L Chloride 100 L (101-111) mmol/L Carbon Dioxide 26 (21-32) mmol/L Anion Gap 6.0 (6-13) BUN 28 H (6-20) mg/dL Creatinine 0.7 (0.6-1.3) mg/dL Estimated GFR (MDRD) 81 L (>89) Glucose 114 H (74-104) mg/dL Calcium 8.9 (8.5-10.3) mg/dL Magnesium 1.6 L (1.7-2.3) mg/dL Assessment/Plan Problem List (1) Severe muscle deconditioning: Impression: Has worked with PT and OT this admission. She has deconditioning, but also is largely limited by anxiety and pain. Present on her last admission. She is needing to lift assist several days since her last discharge. She does report a month-long history of poor mobility. She was independent from home, but spent most of her days in the chair, ambulating briefly to the kitchen and back to her chair. As result she has a sacral ulcer as below. - PT/OT evaluations - Recommend discharge to SNF versus [facility], apparently they are evaluating (2) Pseudomonas urinary tract infection: (3) Acute urinary retention: (4) Leukocytosis: Impression: Presented with leukocytosis, found to have a Pseudomonas UTI. She is also having Pseudomonas in her surface cultures from her wound, but they should not be used to guide her treatment unless they are drug-resistant. She has persistent urinary retention which started during her last hospital stay. She discharged with a Monterro[place] in place. Unclear etiology for her urinary retention, but suspect it is related to her inanition. - Treating Pseudomonas UTI with cefepime - Fever management with Tylenol - Will need 5 days of UTI treatment given monterroso, likely complete on IV cefepime - Follow-up Pseudomonas sensitivities - CBC a.m. - Will need urology follow-up postdischarge for urinary retention, alternatively consider trial of void Qualifiers: Leukocytosis type: bandemia Qualified Code(s): D72.825 - Bandemia (5) Pressure ulcer: Impression: Stable. Patient has a stage III pressure ulcer that was present on admission. Present on her last admission as well. Stable to mildly improved since then. She has some granulation tissue formed. Does not appear acutely infected at this time. - Continue wet-to-dry dressings - She can be started on enzymatic topical debridement with outpatient wound care - Will need ongoing wound care - Frequent repositioning, patient can reposition herself - Keep wound covered and clean Qualifiers: Pressure injury location: sacral region Pressure injury stage: stage 2 Qualified Code(s): L89.152 - Pressure ulcer of sacral region, stage 2 (6) Hypertension: Impression: Blood pressure remained stable on PALLET [employer]TER lisinopril 40 mg daily. Continued. Qualifiers: Hypertension type: unspecified Qualified Code(s): I10 - Essential (primary) hypertension (7) Hyperlipemia: Impression: Continues on home statin, simvastatin 40 mg nightly. Qualifiers: Hyperlipidemia type: unspecified Qualified Code(s): E78.5 - Hyperlipidemia, unspecified (8) Diabetes: Impression: Blood glucose is reasonably controlled here. A1c is 6.3% this admission. Well-controlled on home regimen of metformin and sitagliptin. - Continue metformin 1 g twice daily, sitagliptin 25 mg daily Qualifiers: Diabetes mellitus complication status: without complication Diabetes mellitus assisted insulin use: without extermination supervisor use Diabetes mellitus type: t ype 2 Qualified Code(s): E11.9 - Type 2 diabetes mellitus without complications
[2025-05-28] MEDS: ACETAMINOPHEN 500 MG TABLET PO SCH (08:13)
[2025-05-28] MEDS ORDERED: [UNRECOGNIZED DRUG - OTHER] PO SCH (09:00)
[2025-05-28] MEDS: IBUPROFEN 400 MG TABLET PO PRN (10:02)
--- NOTE | 2025-05-29 07:03 | PROVIDER PROGRESS NOTE ---
Subjective Prog Note Date Prog Note Date: 05/29/25 Prog Note Time: 07:02 Subjective Subjective: No acute changes overnight. Her blood pressure remains robust. Systolics 125. Pulse 51. Normal sats on room air. Her labs reviewed this morning. Her leukocytosis is resolved. Metabolic panel is unremarkable. Normal potassium, normal sodium, normal creatinine. Urine Pseudomonas is pansensitive. No further fevers. Denies chest pain, dyspnea. Reports her nasal congestion and chest congestion have improved. Denies abdominal pain, nausea or vomiting. She has not had a bowel movement in several days. Has been started on bowel protocol. Current Medications Current Medications Current Medications: Current Medications Generic Name Dose Route Start Last Admin Trade Name Freq PRN Reason Stop Dose Admin Acetaminophen 1,000 mg 05/28/25 08:00 05/29/25 05:49 Acetaminophen 500 Mg Tablet PO 1,000 mg TID ABBEY Administration Ascorbic Acid 500 mg 05/27/25 10:00 05/28/25 08:13 Ascorbic Acid 500 Mg Tablet PO 500 mg DAILY ABBEY Administration Aspirin 81 mg 05/26/25 09:00 05/28/25 08:07 Aspirin Chew 81 Mg Tablet PO 81 mg DAILY ABBEY Administration Atorvastatin Calcium 20 mg 05/25/25 21:00 05/28/25 21:45 Atorvastatin 10 Mg Tablet PO 20 mg QPM ABBEY Administration Cefepime HCl 2 gm 05/26/25 10:00 05/28/25 22:41 Cefepime 2 Gm Vial IVP 2 gm BID ABBEY Administration Diclofenac Sodium 4 gm 05/28/25 07:16 Diclofenac Sodium 1% Gel 50 Gm Tube TOP QID PRN Mild Pain (Level 1-3) Enoxaparin Sodium 40 mg 05/26/25 09:00 05/28/25 08:07 Enoxaparin 40 Mg/0.4 Ml Syringe SUBQ 40 mg DAILY ABBEY Administration Ibuprofen 400 mg 05/28/25 09:58 05/29/25 01:49 Ibuprofen 400 Mg Tablet PO 400 mg Q6HR PRN Administration Pain or Fever > 38C (100.4F) Lisinopril 40 mg 05/26/25 09:00 05/28/25 08:07 Lisinopril 20 Mg Tablet PO 40 mg DAILY ABBEY Administration Magnesium Oxide 400 mg 05/27/25 12:00 05/28/25 08:07 Magnesium Oxide 400 Mg Tablet PO 400 mg DAILYWM ABBEY Administration Metformin HCl 1,000 mg 05/25/25 17:00 05/28/25 18:25 Metformin 500 Mg Tablet PO 1,000 mg BIDWM ABBEY Administration Multivitamins/Minerals 1 tab 05/27/25 10:00 05/28/25 08:07 Multivitamin W/Minerals Tablet PO 1 tab DAILYWM ABBEY Administration Ondansetron HCl 4 mg 05/25/25 16:50 05/26/25 22:08 Ondansetron Odt 4 Mg Tablet TL 4 mg Q6HR PRN Administration Nausea / Vomiting Ondansetron HCl 4 mg 05/25/25 16:50 05/27/25 20:54 Ondansetron 4 Mg/2 Ml Vial IVP 4 mg Q6HR PRN Administration Nausea / Vomiting Polyethylene Glycol 17 gm 05/27/25 10:00 05/28/25 08:08 Polyethylene Glycol 3350 17 Gm Packet PO Not Given DAILY ABBEY Sodium Chloride 10 ml 05/25/25 16:50 05/26/25 22:20 Sodium Chloride Flush 0.9% 10 Ml Syringe IVP 10 ml PRN PRN Administration NEEDED PER PROVIDER ORDERS Sodium Chloride 10 ml 05/25/25 17:00 05/29/25 00:16 Sodium Chloride Flush 0.9% 10 Ml Syringe IVP 10 ml 0100,0900,1700 ABBEY Administration Objective Vital Signs/Intake & Output Vital Signs: Vital Signs x48h Temp Pulse Resp BP Pulse Ox 05/29/25 00:16 36.3 C L 51 L 22 125/48 L 93 Intake & Output: Intake & Output 05/26/25 05/27/25 05/28/25 05/29/25 23:59 23:59 23:59 23:59 Intake Total 180 / 180 580 / 580 1855 / 1855 Output Total 1075 / 1075 1025 / 1025 1250 / 1250 250 / 250 Balance -895 / -895 -445 / -445 605 / 605 -250 / -250 Objective Comments/Other: GEN: No acute distress. Resting comfortably. HEENT: NC/AT, normal appearance of external ears and nose. Hearing baseline. Cardiac: Regular rate and rhythm. Systolic ejection murmur left sternal border. 1+ bilateral pitting edema. Pulm: Lungs CTA bilaterally, no cough, no wheezes. Normal effort on room air. Abdomen: Soft, nontender, nondistended. No rebound or guarding Extremities: Moves all 4 extremities equally. Normal tone. Neuro: Face symmetric, CN II through XII intact grossly. No focal deficits. Gait exam deferred. Psych: Mood euthymic with congruent affect. Lab Results 05/29/25 Unknown 05/29/25 07:53 Other Labs: Lab Results x24hrs 05/28/25 Range/Units 05:03 WBC 11.8 H (4.8-10.8) x10^3/uL RBC 3.45 L (4.20-5.40) 10^6/uL Hgb 9.6 L (12.0-16.0) g/dL Hct 30.5 L (37.0-47.0) % MCV 88.4 (81.0-99.0) fL MCH 27.8 (27.0-31.0) pg MCHC 31.5 L (32.0-36.0) g/dL RDW 14.1 (12.0-15.0) % Plt Count 323 (130-450) 10^3/uL MPV 10.5 (7.9-10.8) fL Sodium 132 L (135-145) mmol/L Potassium 3.9 (3.5-4.5) mmol/L Chloride 100 L (101-111) mmol/L Carbon Dioxide 26 (21-32) mmol/L Anion Gap 6.0 (6-13) BUN 28 H (6-20) mg/dL Creatinine 0.7 (0.6-1.3) mg/dL Estimated GFR (MDRD) 81 L (>89) Glucose 114 H (74-104) mg/dL Calcium 8.9 (8.5-10.3) mg/dL Magnesium 1.6 L (1.7-2.3) mg/dL Assessment/Plan Problem List (1) Severe muscle deconditioning: Impression: Stable, not much improved. She does have deconditioning from her multiple illnesses, including recent COVID-19 infection. She is not near her baseline, but remains with good strength in her muscles. She is largely limited by pain and anxiety. Present on her last admission. She is needing to lift assist several days since her last discharge. She does report a month-long history of poor mobility. She was independent from home, but spent most of her days in the chair, ambulating briefly to the kitchen and back to her chair. As result she has a sacral ulcer as below. Given her deconditioning, PT is recommending she discharge to SNF given her ongoing self-care deficit. - Appreciate ongoing PT - Patient will discharge to SNF, she has opted for [facility] given their ability to care for her sacral wound. Pending approval and Auth. (2) Pseudomonas urinary tract infection: (3) Acute urinary retention: (4) Leukocytosis: Impression: Improved. Patient feels better today. No longer with malaise. She has normalization of leukocytosis as of 05/29. No alma fevers. Vital signs remained stable. Never septic. Presented with leukocytosis, found to have a Pseudomonas UTI. She is also having Pseudomonas in her surface cultures from her wound, but they should not be used to guide her treatment unless they are drug-resistant. She has persistent urinary retention which started during her last hospital stay. She discharged with a Sidhu in place. Unclear etiology for her urinary retention, but suspect it is related to her inanition. Urine cultures positive for Pseudomonas. Pansensitive. Sensitive to cefepime as well as fluoroquinolones. No Enterococcus in her urine. - Fever management with Tylenol And ibuprofen - Given indwelling Sidhu, will treat for 5 days with pseudomonal coverage, IV cefepime through 05/30. - CBC a.m. - Will need urology follow-up postdischarge for urinary retention, Can consider trial of void if she is here through the weekend. Qualifiers: Leukocytosis type: bandemia Qualified Code(s): D72.825 - Bandemia (5) Pressure ulcer: Impression: Stable. Patient has a stage III pressure ulcer that was present on admission. Present on her last admission as well. Stable to mildly improved since then. Does not appear acutely infected on my last evaluation 05/28 - Continue wet-to-dry dressings - She can be started on enzymatic topical debridement with outpatient wound care - Will need ongoing wound care. This can be done at SNF and then outpatient wound care when released from rehab. - Frequent repositioning, patient can reposition herself - Keep wound covered and clean Qualifiers: Pressure injury location: sacral region Pressure injury stage: stage 2 Qualified Code(s): L89.152 - Pressure ulcer of sacral region, stage 2 (6) Hypertension: Impression: Blood pressure remained stable on [employer] lisinopril 40 mg daily. Continued. Qualifiers: Hypertension type: unspecified Qualified Code(s): I10 - Essential (primary) hypertension (7) Hyperlipemia: Impression: Continues on home statin, simvastatin 40 mg nightly. Qualifiers: Hyperlipidemia type: unspecified Qualified Code(s): E78.5 - Hyperlipidemia, unspecified (8) Diabetes: Impression: Blood glucose is reasonably controlled here. A1c is 6.3% this admission. Well-controlled on home regimen of metformin and sitagliptin. - Continue metformin 1 g twice daily, sitagliptin 25 mg daily Qualifiers: Diabetes mellitus complication status: without complication Diabetes mellitus oysterman insulin use: without oysterman use Diabetes mellitus type: t ype 2 Qualified Code(s): E11.9 - Type 2 diabetes mellitus without complications
[2025-05-29 08:09] LABS: HCT - HEMATOCRIT 32.9 % (37.0-47.0); HGB - HEMOGLOBIN 10.7 g/dL (12.0-16.0); MEAN PLATELET VOLUME 10.2 fL (7.9-10.8); NRBC ABSOLUTE COUNT (AUTO) 0.00 x10^3/uL; NUCLEATED RED BLOOD CELLS AUTO 0.0 /100WBC; PLT - PLATELET COUNT 315 10^3/uL (130-450); RED CELL DISTRIBUTION WIDTH 14.3 % (12.0-15.0)
[2025-05-29 08:26] LABS: BUN - BLOOD UREA NITROGEN 31.0 mg/dL (6-20); CARBON DIOXIDE - CO2 27.0 mmol/L (21-32); CREATININE 0.6 mg/dL (0.6-1.3); GFR - MDRD 97.0 (>89)
[2025-05-30 06:03] LABS: HCT - HEMATOCRIT 34.1 % (37.0-47.0); HGB - HEMOGLOBIN 10.8 g/dL (12.0-16.0); MEAN PLATELET VOLUME 10.3 fL (7.9-10.8); NRBC ABSOLUTE COUNT (AUTO) 0.00 x10^3/uL; NUCLEATED RED BLOOD CELLS AUTO 0.0 /100WBC; PLT - PLATELET COUNT 343 10^3/uL (130-450); RED CELL DISTRIBUTION WIDTH 14.3 % (12.0-15.0)
--- NOTE | 2025-05-30 09:09 | PROVIDER PROGRESS NOTE ---
Subjective Prog Note Date Prog Note Date: 05/30/25 Prog Note Time: 09:06 Subjective Subjective: NO acute events overnight. Remained afebrile. Continues tx for UTI, improving. No dysuria. No chest pain, dyspnea, abdominal pain. No BM Current Medications Current Medications Current Medications: Current Medications Generic Name Dose Route Start Last Admin Trade Name Freq PRN Reason Stop Dose Admin Acetaminophen 1,000 mg 05/28/25 08:00 05/30/25 05:57 Acetaminophen 500 Mg Tablet PO 1,000 mg TID ABBEY Administration Ascorbic Acid 500 mg 05/27/25 10:00 05/30/25 08:55 Ascorbic Acid 500 Mg Tablet PO 500 mg DAILY ABBEY Administration Aspirin 81 mg 05/26/25 09:00 05/30/25 08:55 Aspirin Chew 81 Mg Tablet PO 81 mg DAILY ABBEY Administration Atorvastatin Calcium 20 mg 05/25/25 21:00 05/29/25 21:47 Atorvastatin 10 Mg Tablet PO 20 mg QPM ABBEY Administration Cefepime HCl 2 gm 05/26/25 10:00 05/30/25 08:55 Cefepime 2 Gm Vial IVP 2 gm BID ABBEY Administration Diclofenac Sodium 4 gm 05/28/25 07:16 Diclofenac Sodium 1% Gel 50 Gm Tube TOP QID PRN Mild Pain (Level 1-3) Enoxaparin Sodium 40 mg 05/26/25 09:00 05/30/25 08:54 Enoxaparin 40 Mg/0.4 Ml Syringe SUBQ 40 mg DAILY ABBEY Administration Ibuprofen 400 mg 05/28/25 09:58 05/29/25 10:19 Ibuprofen 400 Mg Tablet PO 400 mg Q6HR PRN Administration Pain or Fever > 38C (100.4F) Lisinopril 40 mg 05/26/25 09:00 05/30/25 08:56 Lisinopril 20 Mg Tablet PO 40 mg DAILY ABBEY Administration Magnesium Oxide 400 mg 05/27/25 12:00 05/30/25 08:55 Magnesium Oxide 400 Mg Tablet PO 400 mg DAILYWM ABBEY Administration Metformin HCl 1,000 mg 05/25/25 17:00 05/30/25 08:55 Metformin 500 Mg Tablet PO 1,000 mg BIDWM ABBEY Administration Multivitamins/Minerals 1 tab 05/27/25 10:00 05/30/25 08:55 Multivitamin W/Minerals Tablet PO 1 tab DAILYWM ABBEY Administration Ondansetron HCl 4 mg 05/25/25 16:50 05/26/25 22:08 Ondansetron Odt 4 Mg Tablet TL 4 mg Q6HR PRN Administration Nausea / Vomiting Ondansetron HCl 4 mg 05/25/25 16:50 05/27/25 20:54 Ondansetron 4 Mg/2 Ml Vial IVP 4 mg Q6HR PRN Administration Nausea / Vomiting Polyethylene Glycol 17 gm 05/27/25 10:00 05/30/25 08:55 Polyethylene Glycol 3350 17 Gm Packet PO 17 gm DAILY ABBEY Administration Sodium Chloride 10 ml 05/25/25 16:50 05/26/25 22:20 Sodium Chloride Flush 0.9% 10 Ml Syringe IVP 10 ml PRN PRN Administration NEEDED PER PROVIDER ORDERS Sodium Chloride 10 ml 05/25/25 17:00 05/30/25 08:56 Sodium Chloride Flush 0.9% 10 Ml Syringe IVP 10 ml 0100,0900,1700 ABBEY Administration Objective Vital Signs/Intake & Output Vital Signs: Vital Signs x48h Temp Pulse Resp BP Pulse Ox 05/30/25 08:55 36.4 C L 52 L 20 156/54 H 94 Intake & Output: Intake & Output 05/27/25 05/28/25 05/29/25 05/30/25 23:59 23:59 23:59 23:59 Intake Total 580 / 580 1855 / 1855 1310 / 1310 Output Total 1025 / 1025 1250 / 1250 950 / 950 350 / 350 Balance -445 / -445 605 / 605 360 / 360 -350 / -350 Lab Results 05/30/25 05:35 05/29/25 07:53 Other Labs: Lab Results x24hrs 05/30/25 Range/Units 05:35 WBC 9.3 (4.8-10.8) x10^3/uL RBC 3.84 L (4.20-5.40) 10^6/uL Hgb 10.8 L (12.0-16.0) g/dL Hct 34.1 L (37.0-47.0) % MCV 88.8 (81.0-99.0) fL MCH 28.1 (27.0-31.0) pg MCHC 31.7 L (32.0-36.0) g/dL RDW 14.3 (12.0-15.0) % Plt Count 343 (130-450) 10^3/uL MPV 10.3 (7.9-10.8) fL Neut # (Auto) 5.8 (1.5-6.6) 10^3/uL Lymph # (Auto) 2.0 (1.5-3.5) 10^3/uL [place] # (Auto) 0.7 (0.0-1.0) 10^3/uL Eos # (Auto) 0.7 (0.0-0.7) 10^3/uL Baso # (Auto) 0.0 (0.0-0.1) 10^3/uL Absolute Nucleated RBC 0.00 x10^3/uL Nucleated RBC % 0.0 /100WBC Assessment/Plan Problem List (1) Severe muscle deconditioning: (2) Pseudomonas urinary tract infection: (3) Acute urinary retention: (4) Leukocytosis: Qualifiers: Leukocytosis type: bandemia Qualified Code(s): D72.825 - Bandemia (5) Pressure ulcer: Qualifiers: Pressure injury location: sacral region Pressure injury stage: stage 2 Qualified Code(s): L89.152 - Pressure ulcer of sacral region, stage 2 (6) Hypertension: Qualifiers: Hypertension type: unspecified Qualified Code(s): I10 - Essential (primary) hypertension (7) Hyperlipemia: Qualifiers: Hyperlipidemia type: unspecified Qualified Code(s): E78.5 - Hyperlipidemia, unspecified (8) Diabetes: Qualifiers: Diabetes mellitus complication status: without complication Diabetes mellitus senior living insulin use: without terminal operator use Diabetes mellitus type: t ype 2 Qualified Code(s): E11.9 - Type 2 diabetes mellitus without complications
[2025-05-30] MEDS: DOCUSATE SODIUM 250 MG CAPSULE PO SCH (11:00)
[2025-05-30] MEDS: SENNA 8.6 MG TABLET PO SCH (11:00)
--- NOTE | 2025-05-30 11:02 | ADVANCE CARE PLANNING NOTE ---
Advance Care Planning Planning Encounter Date: 05/30/25 Time: 11:00 Diagnosis for Encounter (1) Severe muscle deconditioning: (2) Pseudomonas urinary tract infection: (3) Acute urinary retention: (4) Leukocytosis: Qualifiers: Leukocytosis type: bandemia Qualified Code(s): D72.825 - Bandemia (5) Pressure ulcer: Qualifiers: Pressure injury location: sacral region Pressure injury stage: stage 2 Qualified Code(s): L89.152 - Pressure ulcer of sacral region, stage 2 (6) Hypertension: Qualifiers: Hypertension type: unspecified Qualified Code(s): I10 - Essential (primary) hypertension (7) Hyperlipemia: Qualifiers: Hyperlipidemia type: unspecified Qualified Code(s): E78.5 - Hyperlipidemia, unspecified (8) Diabetes: Qualifiers: Diabetes mellitus type: type 2 Diabetes mellitus medical terminologist insulin use: without group home use Diabetes mellitus complication status: without complication Qualified Code(s): E11.9 - Type 2 diabetes mellitus without complications Encounter Additional Discussion: Had a good conversation with the patient on the morning of 05/30. We discussed a POLST form as she had never heard of this before. She is likely to disposition from this hospitalization to a [facility] facility, and will need a POLST form on file and to do so. We discussed her CODE STATUS and her wishes mostly in terms of the POLST. I described that the document informs EMS of what a person's wishes are if they were to be found at home. She was very clear that if she was to be found without a pulse or breathing she would want to embrace a natural . "If they find me on the street, leave me ". She states she is a member of the [employer]. She wants to be cremated and her ashes to be distributed off of the [employer] She was less clear on what her wishes would be if she were still alive. She agrees that she would want to come back to the hospital for limited intervention if needed. This comports with her actions over the last several weeks, calling EMS, calling fire department, returning to the hospital. She is not expressed any clear frustrations about her ongoing hospitalization, infection is quite g racious for the care that she receives here. She repeatedly indicated that she would not want to be on a breathing machine. She would not want to be intubated. I described that limited interventions are probably what she would want. I described this as avoiding any invasive procedures, but accepting of coming back to the hospital for noninvasive treatments, including IV treatments (abx, fluids, etc.). This seemed most reasonable for her and she agreed. Finally, we turned to the discussion of her wishes while she is in the hospital. She was apprehensive to embrace a DNR status while she is in the hospital, but we described that this would be involve intubation and being on breathing machines. She again states that she would never want to be on a breathing machine. She shares that she has seen many of her old friends pass on life support, and feels that it just extends their suffering. She had a good understanding of what it meant to be intubated and on a ventilator. She seemed to come flight cardiopulmonary resuscitation with things like defibrillation or noninvasive respiratory support. She would want these latter treatments, but would not want to be on breathing machines. I offered that this would likely align most with a wish to be DNR, and she assented. Regarding her next of kin: She has some family that she says is in the [place]. She is estranged from them. They have differing values. She would not want them to be her surrogate decision makers. She has a friend that is local who she wants to be her surrogate decision maker. I have asked case management to help her filling out POA paperwork. - Patient is DNR with limited intervention, selective treatments. Avoid invasive ventilation. - POLST completed, Patient currently is missing her glasses, and when she gets them back she will review the form and signed it. It is left in her room. - Appreciate case management helping with identifying surrogate decision maker and POA paperwork. Code Status: Do Not Attempt Resuscitation Time spent on advance care plannin
--- NOTE | 2025-05-30 12:12 | Discharge Summary ---
"Discharge Summary Admit Date: 05/25/25 Discharge Date: 05/30/25 Discharging Provider: Roger Healy Primary Care Provider: None Code Status: Do Not Attempt Resuscitation Discharge Facility Name: [facility] DIAGNOSES Discharge Diagnoses with Status of Each Condition: ## Severe muscle deconditioning, ongoing Deconditioning from her multiple illnesses, including recent COVID-19 infection. She is not near her baseline, but remains with good strength in her muscles. She is further limited by pain and anxiety. Present on her last admission. She is needing to call fire department for lift assist several days since her last discharge. She does report a month-long history of poor mobility. She was independent from home, but spent most of her days in the chair, ambulating briefly to the kitchen and back to her chair. As result she has a sacral ulcer as below. Given her deconditioning, PT is recommending she discharge to SNF given her ongoing self-care deficit; patient is eager to get home when safe to do so. - Will d/c to [facility] ## Pseudomonas urinary tract infection: ## Acute urinary retention: ## Leukocytosis: Patient has continued to feel better with improvement in her malaise when she first got here. She had normalization of her leukocytosis as of 05/29. She has had no alma fevers. Her vital signs remained stable. She was never septic. Blood cultures were never drawn. She was found to have a Pseudomonas UTI. She completed 5 days of appropriate pseudomonal coverage with IV cefepime as of 05/30. Ongoing and persistent urinary retention with indwelling Sidhu catheter. She has failed to trial voids previously. She will need to follow-up with urology regarding ongoing urinary retention. If she starts to mobilize more at SNF, she may benefit from a repeat trial of void there. - Continue indwelling Sidhu, TOV around 06/05 - If future TOV is unsuccessful, will need follow-up with urology after she gets out of SNF - Continue scheduled Tylenol ## Pressure ulcer: Stable. Patient has a stage III pressure ulcer that was present on admission. Present on her last admission as well. Stable to mildly improved since then. Does not appear acutely infected on my last evaluation 05/28 - Continue wet-to-dry dressings, Daily dressing changes if soiled, otherwise every 24-48 hrs. - She can be started on enzymatic topical debridement with outpatient wound care - Will need ongoing wound care. This can be done at SNF and then outpatient wound care when released from rehab. - Frequent repositioning, patient can reposition herself ## Hypertension: Blood pressure remained stable on LEGISLATIVE AIDE lisinopril 40 mg daily. Continued. ## Hyperlipemia: Continues on home statin, simvastatin 40 mg nightly. ## Diabetes: Blood glucose is reasonably controlled here. A1c is 6.3% this admission. Well- controlled on home regimen of metformin and sitagliptin. - Continue metformin 1 g twice daily, sitagliptin 25 mg daily HPI History of Present Illness: Per Dr. Mosher 05/25/25: Patient is a pleasant 74-year-old with a history of diabetes mellitus, polyarthritis, hypertension and hyperlipidemia who presents with ongoing and persistent weakness resulting in multiple falls at home. Of note, patient was recently here and admitted from 05/09 to 05/15 after a fall which left her on the floor unable to get up for about 4 days. She had some mild rhabdomyolysis, which resolved quickly. At that time, she presented with a stage II sacral ulcer. She was discharged home with home health, as she was unable to afford SNF placement [id number]. She returns due to persistent falls and weakness at home. She states that she has fell every day since being home. On admission date, on 05/22, she states that she was unable to stand from her toilet due to continued weakness. In the ER, she was vitally stablenormotensive, heart rate between 50-60, afebrile, saturating 94 to 97% on room air, with a normal respiratory rate of 16. Lab work was reviewedshe has a slight leukocytosis of 13.9, hemoglobin is stable around 10-11. Her creatinine is within normal limits. Her magnesium was low at 1.6. During her last stay, she had some urinary retention, was discharged home with a Sidhu. Urinalysis was completed by the emergency room, and urine culture is growing Pseudomonas. She was started on oral ciprofloxacin. Patient exhibits continued weakness, which is lower than her baseline mobility. She also has a large sacral wound, which will require continued monitoring and localized wound care. CONSULTS | PROCEDURES Consultations: PT Procedures: None HOSPITAL COURSE Hospital Course: Patient is a 74-year-old female well-known to our service. She was recently admitted after acute decompensation following COVID 19 infection. She did not have significant upper respiratory symptoms but became very weak and debilitated. She was effectively bed/chair ridden prior to her last hospitalization. This resulted in a sacral ulcer. She was initially recommended for fdc at her last hospitalization, but was unable to afford going to a fdc facility. She was sent home with home health and unfortunately further decompensated at home. This more recent decompensation was in part due to a Pseudomonas urinary tract infection. Cultures reveal that the Pseudomonas is pansensitive. She has been treated with 5 days of cefepime. She had acute urinary retention at her last hospitalization and left with a Sidhu catheter in place. Catheter was exchanged 05/25. She failed to trial voids previously, recommend repeating trial of void when she is more mobile, suggest around 06/05. Patient otherwise is discharging to fdc facility with [facility] [place] in stable condition on 05/30. She has had resolution of her leukocytosis for the last 3 days. No systemic signs of illness. Patient endorsed a DNR status with selective intervention. She would not want to be intubated. We filled out a POLST that reflected this. ALLERGIES Allergies Allergy/AdvReac Type Severity Reaction Status Date / Time Penicillins AdvReac Severe Hives Verified 05/22/25 20:46 Sulfa (Sulfonamide AdvReac Severe Hives Verified 05/22/25 20:46 Antibiotics) MEDICATIONS Ambulatory Orders Medication Instructions Recorded Confirmed acetaminophen 500 mg tablet 1,000 mg (2 x 500 mg) PO T ID #[id number] 05/30/25 (Tylenol Extra Strength) tabs ascorbic acid (vitamin C) 500 mg 500 mg PO DAILY #30 t abs 05/30/25 tablet (Vitamin C) aspirin 81 mg chewable tablet 81 mg PO DAILY #30 tabs 05/30/25 (Children's Aspirin) diclofenac sodium 1 % topical gel 4 g topical QID PRN Mild Pain 05/30/25 (Arthritis Pain (diclofenac)) (Level 1-3) #100 grams docusate sodium 250 mg capsule 250 - 500 mg (1 - 2 x 2 50 mg) PO 05/30/25 DAILY PRN prn #30 caps lisinopril 40 mg tablet 40 mg PO DAILY #30 tabs 05/03 025 mecobalamin (vitamin B12) 1,000 1,000 mcg PO DAILY #30 tabs 05/30/25 mcg chewable tablet (B12 Active) metformin 1,000 mg tablet 1,000 mg PO BID #60 tabs [id number] ac 400 1 tab PO DAILY #30 tabs 05/03 0 mcg-calcium carb 500 mg-vit K1 20 mcg tablet (Women's 50 Plus Multivitamin) polyethylene glycol 3350 17 gram 17 g PO DAILY PRN con st #30 ea 05/30/25 oral powder packet simvastatin 40 mg tablet 40 mg PO QPM #30 tabs 05/26/25 sitagliptin phosphate 25 mg tablet 25 mg PO DAILY #30 tabs 05/30/25 05/26/25 (Januvia) bisacodyl 10 mg rectal suppository 10 mg [place] DAILY PRN Constipation 05/31/25 #12 ea PHYSICAL EXAM AT DISCHARGE Vital Signs: Vital Signs x48h Temp Pulse Resp BP Pulse Ox 05/31/25 09:09 36.3 C L 66 20 160/59 H 98 05/31/25 08:00 36.5 C 52 L 20 140/54 H 92 Seen and examined on day of discharge. Physical Exam Other/Comments: GEN: No acute distress. Resting comfortably. HEENT: NC/AT, normal appearance of external ears and nose. Hearing baseline. Cardiac: Regular rate and rhythm. Systolic ejection murmur left sternal border. 1+ bilateral pitting edema. Pulm: Lungs CTA bilaterally, no cough, no wheezes. Normal effort on room air. Abdomen: Soft, nontender, nondistended. No rebound or guarding Extremities: Moves all 4 extremities equally. Normal tone. Neuro: Face symmetric, CN II through XII intact grossly. No focal deficits. Gait exam deferred. Psych: Mood euthymic with congruent affect. LABS 05/30/25 05:35 05/29/25 07:53 SEPSIS Current Stage of Sepsis: Ruled out FOLLOW UP Follow Up: Will need follow-up with urology after discharge from SNF if she is unable to have Sidhu catheter removed Discharging to SNF for further rehab Patient needs to establish with a primary care doctor in the community when she returns Will need f/u with outpatient wound care to follow-up on her sacral ulcer. TIME SPENT Time Spent in Discharge (Minutes): 33 Discharge Plan Discharge Patient Disposition: DC/Xfer Condition: Good Medically Cleared Date:: 05/30/25 Prescriptions: New polyethylene glycol 3350 17 gram Powder In Packet 17 g PO DAILY PRN (Reason: const) Qty: 30 0RF acetaminophen [Tylenol Extra Strength] 500 mg Tablet 1,000 mg PO TID Qty: 180 0RF ascorbic acid (vitamin C) [Vitamin C] 500 mg Tablet 500 mg PO DAILY Qty: 30 0RF aspirin [Children's Aspirin] 81 mg Tablet,Chewable 81 mg PO DAILY Qty: 30 0RF docusate sodium 250 mg Capsule 250 - 500 mg PO DAILY PRN (Reason: prn) Qty: 30 0RF diclofenac sodium [Arthritis Pain (diclofenac)] 1 % Gel 4 g topical QID PRN (Reason: Mild Pain (Level 1-3)) Qty: 100 0RF mecobalamin (vitamin B12) [B12 Active] 1,000 mcg tablet,chewable 1,000 mcg PO DAILY Qty: 30 0RF bisacodyl 10 mg Suppository 10 mg [place] DAILY PRN (Reason: Constipation) Qty: 12 0RF Continued simvastatin 40 mg tablet 40 mg PO QPM Qty: 30 0RF metformin 1,000 mg tablet 1,000 mg PO BID Qty: 60 0RF lisinopril 40 mg tablet 40 mg PO DAILY Qty: 30 0RF Januvia 25 mg tablet 25 mg PO DAILY Qty: 30 0RF Women's 50 Plus Multivitamin 400 mcg-500 mg calcium-20 mcg tablet 1 tab PO DAILY Qty: 30 0RF Discontinued aspirin 81 mg tablet 81 mg PO DAILY cinnamon bark 500 mg capsule 500 mg PO BID leann (Zingiber officinalis) 550 mg capsule 550 mg PO BID turmeric 400 mg capsule 2,250 mg PO DAILY ibuprofen [Advil] 200 mg tablet 200 mg PO Q8H arnica 0.443 mg tablet 1.329 mg sublingual DAILY Patient Comments: PT SHOWED ME THE BOTTLE SHE ORDERS FROM [email or web address]. EACH TABLET 0.443 MG. PT TAKES 3 TABLETS PER DAY SUBLINGUALLY. Activity Restrictions: Activity as Tolerated Diet: Diabetic Health Concerns: You are being discharged after treatment for a urinary tract infection (UTI) caused by Pseudomonas bacteria. You also experienced several falls and generalized weakness. Please follow these instructions to help you recover and stay safe at home. Medications * You have completed a course of antibiotics. * Watch for side effects such as diarrhea, rash, or confusion. * If you have recurrent symptoms including fever, burning with urination, increased urinary frequency please notify your provider. * Please follow-up with urology as soon as you can after you get out of rehab for removal of catheter Fall Prevention * Move slowly when getting up from bed or a chair to avoid dizziness. * Use assistive devices (walker, cane) if recommended. * Keep your home well-lit and remove tripping hazards (loose rugs, clutter). * Wear supportive, non-slip shoes. Hydration and Nutrition * Drink plenty of fluids unless otherwise instructed. This helps flush bacteria from your urinary tract. * Eat balanced meals to support your strength and recovery. Monitoring and When to Seek Help * Watch for signs that your infection may be returning or worsening: fever, chills, burning with urination, confusion, or new weakness. * If you fall again, feel much weaker, or cannot walk safely, seek medical attention. * If you develop severe symptoms (high fever, shaking chills, confusion, chest pain, or trouble breathing), call 911 or go to the emergency room. Follow-Up * Please establish with a primary care provider when you return home. * If you have a urinary catheter, follow care instructions closely and report any problems. Additional Notes * If you have other medical conditions (such as diabetes or incontinence), manage them as directed, as these can increase your risk for future UTIs and falls.[5] * If you have questions about your medications or care, contact your healthcare provider. Print Language: [place] Patient Instructions: ED Cystitis Female Adult Stand Alone Forms: SNF Discharge Vitals documented within 30 minutes of discharge?: Yes"
--- NOTE | 2025-05-30 15:32 | PROVIDER PROGRESS NOTE ---
Subjective Prog Note Date Prog Note Date: 05/30/25 Prog Note Time: 15:26 Subjective Subjective: Today was in administratively eventful day for the patient. She was discharged earlier today, before being denied admission to the nursing facility. She has had scant bowel activity over the last 24 hours with some "dribbles" per nursing. No effective bowel movement. It has been 4 days since her last bowel movement. This was a barrier to discharge to group home facility. She has been moved back to her room after sitting in the mercedes on a gurney waiting to go with EMS for an hour. The patient is feeling well. She is gracious for her care. She is eager to get to rehab when she can. She otherwise is feeling okay. Did not sleep well last night. Denies any pains. Denies fevers or chills. Denies chest pain, dyspnea, abdominal pain, nausea or vomiting. CODE STATUS updated today. See ACP note from earlier today. Current Medications Current Medications Current Medications: Current Medications Generic Name Dose Route Start Last Admin Trade Name Jessee PRN Reason Stop Dose Admin Acetaminophen 1,000 mg 05/28/25 08:00 05/30/25 14:47 Acetaminophen 500 Mg Tablet PO 1,000 mg TID ABBEY Administration Ascorbic Acid 500 mg 05/27/25 10:00 05/30/25 08:55 Ascorbic Acid 500 Mg Tablet PO 500 mg DAILY ABBEY Administration Aspirin 81 mg 05/26/25 09:00 05/30/25 08:55 Aspirin Chew 81 Mg Tablet PO 81 mg DAILY ABBEY Administration Atorvastatin Calcium 20 mg 05/25/25 21:00 05/29/25 21:47 Atorvastatin 10 Mg Tablet PO 20 mg QPM ABBEY Administration Cefepime HCl 2 gm 05/26/25 10:00 05/30/25 08:55 Cefepime 2 Gm Vial IVP 05/30/25 22:00 2 gm BID ABBEY Administration Diclofenac Sodium 4 gm 05/28/25 07:16 Diclofenac Sodium 1% Gel 50 Gm Tube TOP QID PRN Mild Pain (Level 1-3) Docusate Sodium 250 - 500 mg 05/30/25 09:35 05/30/25 11:03 Docusate Sodium 250 Mg Capsule PO Not Given DAILY ABBEY Enoxaparin Sodium 40 mg 05/26/25 09:00 05/30/25 08:54 Enoxaparin 40 Mg/0.4 Ml Syringe SUBQ 40 mg DAILY ABBEY Administration Ibuprofen 400 mg 05/28/25 09:58 05/29/25 10:19 Ibuprofen 400 Mg Tablet PO 400 mg Q6HR PRN Administration Pain or Fever > 38C (100.4F) Lisinopril 40 mg 05/26/25 09:00 05/30/25 08:56 Lisinopril 20 Mg Tablet PO 40 mg DAILY ABBEY Administration Magnesium Oxide 400 mg 05/27/25 12:00 05/30/25 08:55 Magnesium Oxide 400 Mg Tablet PO 400 mg DAILYWM ABBEY Administration Metformin HCl 1,000 mg 05/25/25 17:00 05/30/25 08:55 Metformin 500 Mg Tablet PO 1,000 mg BIDWM ABBEY Administration Multivitamins/Minerals 1 tab 05/27/25 10:00 05/30/25 08:55 Multivitamin W/Minerals Tablet PO 1 tab DAILYWM ABBEY Administration Ondansetron HCl 4 mg 05/25/25 16:50 05/26/25 22:08 Ondansetron Odt 4 Mg Tablet TL 4 mg Q6HR PRN Administration Nausea / Vomiting Ondansetron HCl 4 mg 05/25/25 16:50 05/27/25 20:54 Ondansetron 4 Mg/2 Ml Vial IVP 4 mg Q6HR PRN Administration Nausea / Vomiting Polyethylene Glycol 17 gm 05/27/25 10:00 05/30/25 08:55 Polyethylene Glycol 3350 17 Gm Packet PO 17 gm DAILY ABBEY Administration Senna 8.6 - 17.2 mg 05/30/25 10:00 05/30/25 11:00 Senna 8.6 Mg Tablet PO 8.6 mg DAILY ABBEY Administration Sodium Chloride 10 ml 05/25/25 16:50 05/26/25 22:20 Sodium Chloride Flush 0.9% 10 Ml Syringe IVP 10 ml PRN PRN Administration NEEDED PER PROVIDER ORDERS Sodium Chloride 10 ml 05/25/25 17:00 05/30/25 08:56 Sodium Chloride Flush 0.9% 10 Ml Syringe IVP 10 ml 0100,0900,1700 ABBEY Administration Objective Vital Signs/Intake & Output Vital Signs: Vital Signs x48h Temp Pulse Resp BP BP Pulse Ox 05/30/25 13:16 36.5 C 52 L 20 137/46 H 95 05/30/25 08:55 36.4 C L 52 L 20 156/54 H 94 Intake & Output: Intake & Output 05/27/25 05/28/25 05/29/25 05/30/25 23:59 23:59 23:59 23:59 Intake Total 580 / 580 1855 / 1855 1310 / 1310 750 / 750 Output Total 1025 / 1025 1250 / 1250 950 / 950 700 / 700 Balance -445 / -445 605 / 605 360 / 360 50 / 50 Objective Comments/Other: GEN: No acute distress. Resting comfortably. HEENT: NC/AT, normal appearance of external ears and nose. Hearing baseline. Cardiac: Regular rate and rhythm. Systolic ejection murmur left sternal border. 1+ bilateral pitting edema. Pulm: Lungs CTA bilaterally, no cough, no wheezes. Normal effort on room air. Abdomen: Soft, nontender, nondistended. No rebound or guarding Extremities: Moves all 4 extremities equally. Normal tone. Neuro: Face symmetric, CN II through XII intact grossly. No focal deficits. Gait exam deferred. Psych: Mood euthymic with congruent affect. Lab Results 05/30/25 05:35 05/29/25 07:53 Other Labs: Lab Results x24hrs 05/30/25 Range/Units 05:35 WBC 9.3 (4.8-10.8) x10^3/uL RBC 3.84 L (4.20-5.40) 10^6/uL Hgb 10.8 L (12.0-16.0) g/dL Hct 34.1 L (37.0-47.0) % MCV 88.8 (81.0-99.0) fL MCH 28.1 (27.0-31.0) pg MCHC 31.7 L (32.0-36.0) g/dL RDW 14.3 (12.0-15.0) % Plt Count 343 (130-450) 10^3/uL MPV 10.3 (7.9-10.8) fL Neut # (Auto) 5.8 (1.5-6.6) 10^3/uL Lymph # (Auto) 2.0 (1.5-3.5) 10^3/uL [place]ward # (Auto) 0.7 (0.0-1.0) 10^3/uL Eos # (Auto) 0.7 (0.0-0.7) 10^3/uL Baso # (Auto) 0.0 (0.0-0.1) 10^3/uL Absolute Nucleated RBC 0.00 x10^3/uL Nucleated RBC % 0.0 /100WBC Sepsis Event Note (H) Evaluation Current Stage of Sepsis: Ruled out Assessment/Plan Problem List (1) Severe muscle deconditioning: Impression: Stable. Not mobilizing much. She is able to reposition herself in bed. Recall the patient presents with deconditioning from her multiple illnesses, including recent COVID-19 infection. She is not near her baseline. She is limited by pain and anxiety. Present on her last admission. She is needing Fire department to come to her house for lift assist several days since her last discharge. She does report a month-long history of poor mobility. She was independent from home, but spent most of her days in the chair, ambulating briefly to the kitchen and back to her chair. As result she has a sacral ulcer as below. Given her deconditioning, PT is recommending she discharge to SNF given her ongoing self-care deficit. Patient was scheduled to discharge to [facility] on 05/30. They declined her because of constipation as below. - Appreciate ongoing PT While in [place] - SNF search ongoing. (2) Pseudomonas urinary tract infection: (3) Acute urinary retention: (4) Leukocytosis: Impression: Improved. No longer having any leukocytosis. Presented with leukocytosis, found to have a Pseudomonas UTI. She is also having Pseudomonas in her surface cultures from her wound, but they should not be used to guide her treatment unless they are drug-resistant. She has persistent urinary retention which started during her last hospital stay. She discharged with a Sidhu in place. Unclear etiology for her urinary retention, but suspect it is related to her inanition. Urine cultures positive for Pseudomonas. Pansensitive. Sensitive to cefepime as well as fluoroquinolones. No Enterococcus in her urine. - Fever management with Tylenol And ibuprofen - Given indwelling Sidhu, will treat for 5 days with pseudomonal coverage, IV cefepime through 05/30. - CBC a.m. - Will need urology follow-up postdischarge for urinary retention, Can consider trial of void if she is here through the weekend. Qualifiers: Leukocytosis type: bandemia Qualified Code(s): D72.825 - Bandemia (5) Pressure ulcer: Impression: Stable. Patient has a stage III pressure ulcer that was present on admission. Present on her last admission as well. Stable to mildly improved since then. Does not appear acutely infected on my last evaluation 05/28 - Eschar remains dry. Continue dressing changes every 24-48 hours. - Will need ongoing wound care. This can be done at SNF and then outpatient wound care when released from rehab. 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 Continued. Qualifiers: Hypertension type: unspecified Qualified Code(s): I10 - Essential (primary) hypertension (7) Hyperlipemia: Impression: Continues on home statin, simvastatin 40 mg nightly. Qualifiers: Hyperlipidemia type: unspecified Qualified Code(s): E78.5 - Hyperlipidemia, unspecified (8) Diabetes: Impression: Blood glucose is reasonably controlled here. A1c is 6.3% this admission. Well-controlled on home regimen of metformin and sitagliptin. - Continue metformin 1 g twice daily, sitagliptin 25 mg daily I spent a total of 61 minutes in the care of this patient today. This time was spent reviewing labs, vital signs, imaging, interviewing and examining the patient, and discussing plan of care with them and their other care providers. Extended time was spent coordinating her initial discharge and then readmission to the hospital after group home refused her admission. Qualifiers: Diabetes mellitus type: type 2 Diabetes mellitus skilled nursing insulin use: without emergency care tech use Diabetes mellitus complication status: without complication Qualified Code(s): E11.9 - Type 2 diabetes mellitus without complications
[2025-05-30] MEDS ORDERED: BISACODYL 10 MG SUPP PR PRN (18:20)
--- NOTE | 2025-05-31 07:44 | PROVIDER PROGRESS NOTE ---
Subjective Prog Note Date Prog Note Date: 05/31/25 Prog Note Time: 07:37 Subjective Subjective: No acute events overnight. Patient did have a bowel movement yesterday evening. Moderate large and brown. She received a suppository prior to this, easily passed. Patient remains clinically stable to discharge to SNF. She denies fevers or chills, chest pain, dyspnea, abdominal pain, nausea or vomiting. Vital signs remained stable. Afebrile. Normal saturations on room air. Current Medications Current Medications Current Medications: Current Medications Generic Name Dose Route Start Last Admin Trade Name Freq PRN Reason Stop Dose Admin Acetaminophen 1,000 mg 05/28/25 08:00 05/31/25 05:50 Acetaminophen 500 Mg Tablet PO 1,000 mg TID ABBEY Administration Ascorbic Acid 500 mg 05/27/25 10:00 05/30/25 08:55 Ascorbic Acid 500 Mg Tablet PO 500 mg DAILY ABBYE Administration Aspirin 81 mg 05/26/25 09:00 05/30/25 08:55 Aspirin Chew 81 Mg Tablet PO 81 mg DAILY ABBEY Administration Atorvastatin Calcium 20 mg 05/25/25 21:00 05/30/25 21:48 Atorvastatin 10 Mg Tablet PO 20 mg QPM ABBEY Administration Bisacodyl 10 mg 05/30/25 18:20 Bisacodyl 10 Mg Supp MA DAILY PRN Constipation Diclofenac Sodium 4 gm 05/28/25 07:16 Diclofenac Sodium 1% Gel 50 Gm Tube TOP QID PRN Mild Pain (Level 1-3) Docusate Sodium 250 - 500 mg 05/30/25 09:35 05/30/25 11:03 Docusate Sodium 250 Mg Capsule PO Not Given DAILY ABBEY Enoxaparin Sodium 40 mg 05/26/25 09:00 05/30/25 08:54 Enoxaparin 40 Mg/0.4 Ml Syringe SUBQ 40 mg DAILY ABBEY Administration Ibuprofen 400 mg 05/28/25 09:58 05/29/25 10:19 Ibuprofen 400 Mg Tablet PO 400 mg Q6HR PRN Administration Pain or Fever > 38C (100.4F) Lisinopril 40 mg 05/26/25 09:00 05/30/25 08:56 Lisinopril 20 Mg Tablet PO 40 mg DAILY ABBEY Administration Magnesium Oxide 400 mg 05/27/25 12:00 05/30/25 08:55 Magnesium Oxide 400 Mg Tablet PO 400 mg DAILYWM ABBEY Administration Metformin HCl 1,000 mg 05/25/25 17:00 05/30/25 18:17 Metformin 500 Mg Tablet PO 1,000 mg BIDWM ABBEY Administration Multivitamins/Minerals 1 tab 05/27/25 10:00 05/30/25 08:55 Multivitamin W/Minerals Tablet PO 1 tab DAILYWM ABBEY Administration Ondansetron HCl 4 mg 05/25/25 16:50 05/26/25 22:08 Ondansetron Odt 4 Mg Tablet TL 4 mg Q6HR PRN Administration Nausea / Vomiting Ondansetron HCl 4 mg 05/25/25 16:50 05/27/25 20:54 Ondansetron 4 Mg/2 Ml Vial IVP 4 mg Q6HR PRN Administration Nausea / Vomiting Polyethylene Glycol 17 gm 05/27/25 10:00 05/30/25 08:55 Polyethylene Glycol 3350 17 Gm Packet PO 17 gm DAILY ABBEY Administration Senna 8.6 - 17.2 mg 05/30/25 10:00 05/30/25 11:00 Senna 8.6 Mg Tablet PO 8.6 mg DAILY ABBEY Administration Sodium Chloride 10 ml 05/25/25 16:50 05/26/25 22:20 Sodium Chloride Flush 0.9% 10 Ml Syringe IVP 10 ml PRN PRN Administration NEEDED PER PROVIDER ORDERS Sodium Chloride 10 ml 05/25/25 17:00 05/30/25 23:59 Sodium Chloride Flush 0.9% 10 Ml Syringe IVP Not Given 0100,0900,1700 [facility] Objective Vital Signs/Intake & Output Reviewed Vital Signs: Yes Vital Signs: Vital Signs x48h Temp Pulse Resp BP Pulse Ox 05/31/25 00:25 36.8 C 62 20 169/55 H 96 Intake & Output: Intake & Output 05/28/25 05/29/25 05/30/25 05/31/25 23:59 23:59 23:59 23:59 Intake Total 1855 / 1855 1310 / 1310 1110 / 1110 Output Total 1250 / 1250 950 / 950 1000 / 1000 550 / 550 Balance 605 / 605 360 / 360 110 / 110 -550 / -550 Objective Comments/Other: GEN: No acute distress. Resting comfortably. HEENT: NC/AT, normal appearance of external ears and nose. Hearing baseline. Cardiac: Regular rate and rhythm. Systolic ejection murmur left sternal border. 1+ bilateral pitting edema. Pulm: Lungs CTA bilaterally, no cough, no wheezes. Normal effort on room air. Abdomen: Soft, nontender, nondistended. No rebound or guarding Extremities: Moves all 4 extremities equally. Normal tone. Neuro: Face symmetric, CN II through XII intact grossly. No focal deficits. Gait exam deferred. Psych: Mood euthymic with congruent affect. Lab Results 05/30/25 05:35 05/29/25 07:53 Other Labs: Lab Results x24hrs 05/30/25 Range/Units 05:35 WBC 9.3 (4.8-10.8) x10^3/uL RBC 3.84 L (4.20-5.40) 10^6/uL Hgb 10.8 L (12.0-16.0) g/dL Hct 34.1 L (37.0-47.0) % MCV 88.8 (81.0-99.0) fL MCH 28.1 (27.0-31.0) pg MCHC 31.7 L (32.0-36.0) g/dL RDW 14.3 (12.0-15.0) % Plt Count 343 (130-450) 10^3/uL MPV 10.3 (7.9-10.8) fL Neut # (Auto) 5.8 (1.5-6.6) 10^3/uL Lymph # (Auto) 2.0 (1.5-3.5) 10^3/uL Bryan # (Auto) 0.7 (0.0-1.0) 10^3/uL Eos # (Auto) 0.7 (0.0-0.7) 10^3/uL Baso # (Auto) 0.0 (0.0-0.1) 10^3/uL Absolute Nucleated RBC 0.00 x10^3/uL Nucleated RBC % 0.0 /100WBC Sepsis Event Note (H) Evaluation Current Stage of Sepsis: Ruled out Assessment/Plan Problem List (1) Severe muscle deconditioning: Impression: Would continue to benefit from rehab. Able to reposition herself in bed. Sits on the commode without issue. Recall the patient presents with deconditioning from her multiple illnesses, including recent COVID-19 infection. She is not near her baseline. She is limited by pain and anxiety. Present on her last admission. She is needing Fire department to come to her house for lift assist several days since her last discharge. She does report a month-long history of poor mobility. She was independent from home, but spent most of her days in the chair, ambulating briefly to the kitchen and back to her chair. As result she has a sacral ulcer as below. Given her deconditioning, PT is recommending she discharge to SNF given her ongoing self-care deficit. Patient was scheduled to discharge to [facility] on 05/30. They declined her because of constipation as below. - Appreciate ongoing PT While in house - Med ready for SNF when she has an accepting facility. (2) Pseudomonas urinary tract infection: (3) Acute urinary retention: (4) Leukocytosis: Impression: Improved. No longer having any leukocytosis. Presented with leukocytosis, found to have a Pseudomonas UTI. She is also having Pseudomonas in her surface cultures from her wound, but they should not be used to guide her treatment unless they are drug-resistant. She has persistent urinary retention which started during her last hospital stay. She discharged with a Sidhu in place. Unclear etiology for her urinary retention, but suspect it is related to her inanition. Urine cultures positive for Pseudomonas. Pansensitive. Sensitive to cefepime as well as fluoroquinolones. No Enterococcus in her urine. - Fever management with Tylenol And ibuprofen - Given indwelling Sidhu, will treat for 5 days with pseudomonal coverage, IV cefepime through 05/30. - CBC a.m. - Will need urology follow-up postdischarge for urinary retention, Can consider trial of void if she is here through the weekend. Qualifiers: Leukocytosis type: bandemia Qualified Code(s): D72.825 - Bandemia (5) Pressure ulcer: Impression: Stable. Patient has a stage III pressure ulcer that was present on admission. Present on her last admission as well. Stable to mildly improved since then. Does not appear acutely infected on my last evaluation 05/28 - Eschar remains dry. Continue dressing changes every 24-48 hours. - Will need ongoing wound care. This can be done at SNF and then outpatient wound care when released from rehab. 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 Continued. Qualifiers: Hypertension type: unspecified Qualified Code(s): I10 - Essential (primary) hypertension (7) Hyperlipemia: Impression: Continues on home statin, simvastatin 40 mg nightly. Qualifiers: Hyperlipidemia type: unspecified Qualified Code(s): E78.5 - Hyperlipidemia, unspecified (8) Constipation: Impression: Patient initially presented with diarrhea on the day of arrival. She then was apprehensive to use bowel meds while in the hospital, combined with her sedentary nature here has precipitated further constipation. She did not have a bowel movement between admission on 05/25 through 05/30. She received bowel meds on 05/28 through 05/30 until she had a bowel movement. Moderate to large bowel movement on 05/30 in the evening. - Continue bowel meds PRN. (9) Diabetes: Impression: Blood glucose is reasonably controlled here. A1c is 6.3% this admission. Well-controlled on home regimen of metformin and sitagliptin. - Continue metformin 1 g twice daily, sitagliptin 25 mg daily I spent a total of 38 minutes in the care of this patient today. 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
[2025-05-31 09:13] VITALS: O2SAT 98
[2025-05-31 14:14] VITALS: BP 153/59; TEMP 97.7
== END 2025-05-31 13:52 | DRG 689 ==
LOC: MS2 → SUATTDRO 14:03 → UNDODISIN 05-30 14:00
PROVIDERS: ADMIT Internal Medicine; ATTEND Student in an Organized Health Care Education/Training Program
DX: R33.9 Retention of urine, unspecified; Z79.84 Long term (current) use of oral hypoglycemic drugs; D72.825 Bandemia; Z66 Do not resuscitate; R53.81 Other malaise; K59.00 Constipation, unspecified; Z79.82 Long term (current) use of aspirin; F41.9 Anxiety disorder, unspecified; L89.153 Pressure ulcer of sacral region, stage 3; E78.5 Hyperlipidemia, unspecified; B96.5 Pseudomonas (aeruginosa) (mallei) (pseudomallei) as the cause of diseases classified elsewhere; Z79.899 Other long term (current) drug therapy; E11.9 Type 2 diabetes mellitus without complications; R32 Unspecified urinary incontinence; R39.198 Other difficulties with micturition; M19.90 Unspecified osteoarthritis, unspecified site; L89.152 Pressure ulcer of sacral region, stage 2; Z86.16 Personal history of COVID-19; I10 Essential (primary) hypertension; R53.1 Weakness; N39.0 Urinary tract infection, site not specified; Z91.81 History of falling